=== PATIENT | female | born 1955 | race Caucasian/White ===

== ENCOUNTER 2022-11-07 10:00 | Outpatient (RCR) | payer MEDICARE, SELFPAY ==
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
== END 2022-11-07 19:00 | disposition home or self-care (01) ==
LOC: PT 10:00
PROVIDERS: PCP Internal Medicine; Referring Provider Internal Medicine; Visit Provider Internal Medicine
DX: M25.562 Pain in left knee (principal); M25.512 Pain in left shoulder
CPT/HCPCS: 97110; 97161

== ENCOUNTER → 2022-11-07 | Outpatient (CLI) | payer MEDICARE, SELFPAY ==
--- NOTE | 2022-11-07 07:31 | CT_ITS ---
STUDY: CT ABDOMEN WITH AND WITHOUT CONTRAST REASON FOR EXAM: Female, 67 years old. Had previous CT in [place], [place] that was indeterminate adrenal nodule. RADIATION DOSAGE (If Supplied By Facility): CTDIvol = ( 22.42 ) mGy, DLP = ( 1630.07 ) mGycm TECHNIQUE: Transaxial images were obtained pre and post I.V. administration of IV 100mL Isovue-370, and oral contrast. Sagittal and coronal images were reconstructed. Individualized dose optimization techniques were used for this CT. COMPARISON: None. FINDINGS: The visualized lung bases are unremarkable. The visualized portions of the heart are within normal limits. There is hepatomegaly with diffuse hepatic enlargement. Normal gallbladder and extrahepatic biliary system. Normal spleen. Normal pancreas. There is a 8.9 mm hypodense nodule in the lateral limb of the right adrenal gland suggestive of a small adenoma. There is also evidence of a 5.6 mm hypodense nodule in the crux of the left adrenal gland suggestive of adrenal adenoma. Normal right kidney. Normal left kidney. Normal visualized stomach. Normal small intestine. Normal colon. The appendix is visualized and appears normal. Normal abdominal aorta. Normal inferior vena cava. Normal retroperitoneum. Normal abdominal wall. Minimal anterior listhesis of L4 on L5. Marked degree of disc space narrowing and disc degeneration at the L5-S1 level. CT/Abdomen W/WO IV Contrast IMPRESSION: Findings in keeping with subcentimeter bilateral adrenal adenomas. Fatty infiltration of the liver. Electronically Signed: Isidro Morales MD at 14:56 EDT ,
[2022-11-07 08:01] LABS: CREATININE FINGERSTICK < 0.9 mg/dL (0.55-1.02); EGFR FINGERSTICK > 60.0000 mL/min (>60)
== END | disposition home or self-care (01) ==
LOC: CT 07:25
PROVIDERS: PCP Internal Medicine; Referring Provider Internal Medicine; Visit Provider Internal Medicine
DX: E27.8 Other specified disorders of adrenal gland (principal)
CPT/HCPCS: 74170; Q9967

== ENCOUNTER → 2022-12-16 | Outpatient (CLI) | payer MEDICARE, SELFPAY ==
--- NOTE | 2022-12-16 08:37 | BI_ITS ---
MAMMOGRAPHY - BILATERAL SCREENING REASON FOR EXAM: Female, 67 years old. Routine annual screening examination. PERTINENT HISTORY: Aunt with breast cancer. TECHNIQUE: Digital bilateral breast irma (3D mammographic acquisition) in the CC and MLO projections. 2-D mediolateral oblique (MLO) and craniocaudad (CC) views of both breasts were obtained. CAD: Full Field Digital Mammography with Computer Added Detection was performed. COMPARISON: No comparison mammograms available at this time. If any prior films become available, an addendum to this report can be generated. FINDINGS: Breast Composition: There are scattered areas of fibroglandular density. There are no dominant masses or suspicious calcifications. Partially calcified nodule in the anterior upper lateral aspect of the No other significant abnormalities are identified. BI/SCRN MAMM (CAD)W/IRMA BILAT IMPRESSION: Negative screening mammogram. Yearly followup mammogram recommended. (A) ASSESSMENT CATEGORY: BIRADS Category 2: Benign. A letter regarding these results will be sent to the patient by the facility within 30 days. Approximately 10% of breast cancers are not detected by mammography. A normal mammogram should not delay biopsy of a clinically suspicious abnormality. [id number] Electronically Signed: Isidro Morales MD at 14:59 EDT ,
--- NOTE | 2022-12-16 08:42 | BD_ITS ---
STUDY: DUAL ENERGY X-RAY ABSORPTIOMETRY / DXA REASON FOR EXAM: Female, 67 years old. [id number] TECHNIQUE: Bone Mineral Density (BMD) measurements of lumbar spine and bilateral hips were obtained. COMPARISON: None. FINDINGS: Lumbar Spine (L1-L4): g/cm2 (0.849) / T-score (-1.2) / Z-score (0.5) Findings are suggestive of osteopenia with a low fracture risk. Left Femur Total: g/cm2 (0.814) / T-score (-1.1) / Z-score (0.2) Left Femoral Neck: g/cm2 (0.68) / T-score (-1.5) / Z-score (0.0) Right Femur Total: g/cm2 (0.860) / T-score (-0.7) / Z-score (0.6) Right Femoral Neck: g/cm2 (0.767) / T-score (-0.7) / Z-score (0.8) BD/Dexa Bone Density Study IMPRESSION: The patient is considered osteopenic as outlined below according to World Sark[employer] Organization (WHO) criteria with a low fracture risk. Reference Information: The T-score is the number of standard deviations above or below the standard which is normal for young adults at their peak bone mineral density. The World Health Organization (WHO) interprets the T-scores as follows: Above -1 Normal bone density Between -1 and -2.5 Osteopenia Equal to / or below -2.5 Osteoporosis As a practical clinical guideline, osteopenia may be graded as follows: Mild -1 through -1.5 Moderate -1.6 through -2.0 Severe -2.1 through -2.4 The Z-score is the number of standard deviations above or below age-matched controls. A Z-score of less than -1.5 would be considered abnormal. References: 1. NIH Osteoporosis and Related Bone Diseases www osteo.org 2. International Society for Clinical Densitometry www iscd.org 3. National Osteoporosis Foundation www nof.org Electronically Signed: Isidro Morales MD at 10:20 EDT ,
== END | disposition home or self-care (01) ==
LOC: OPBD 08:35
PROVIDERS: PCP Internal Medicine; Referring Provider Internal Medicine; Visit Provider Internal Medicine
DX: Z78.0 Asymptomatic menopausal state (principal); Z12.31 Encounter for screening mammogram for malignant neoplasm of breast
CPT/HCPCS: 77063; 77067; 77080

== ENCOUNTER → 2023-11-11 | Outpatient (CLI) | payer MEDICARE, SELFPAY ==
--- NOTE | 2023-11-11 08:33 | US_ITS ---
STUDY: ABDOMINAL ULTRASOUND - RIGHT UPPER QUADRANT REASON FOR VISIT: Female, 68 years old fatty liver TECHNIQUE: Ultrasound evaluation of the right upper quadrant was performed with real-time and static guo-scale imaging. TECHNICAL QUALITY: Adequate. COMPARISON: Comparison is made with prior CT scan the abdomen dated November 07, 2022. FINDINGS: Liver: The liver measures 12.8 cm. There is increased echogenicity consistent with fatty infiltration. The bile ducts are within normal limits. There is hepatic color flow. The direction of portal flow is hepatopetal. There is no demonstrated mass lesion. Gallbladder: Normal distended gallbladder. The gallbladder wall measures 1.9 mm. There is a negative sonographic Tucker''s sign. There is no pericholecystic fluid. There are no gallstones. Several small gallbladder polyps are seen the largest measures 4 mm x 2 mm x 3 mm. Common Bile Duct (C.B.D.): The common bile duct measures 4.6 mm. Pancreas: Normal size of the head, body and tail of the pancreas. There is increased echogenicity of the pancreas. There is no demonstrated pancreatic mass or cyst. Right Kidney: Normal size of the right kidney. The right kidney measures 10.2 cm x 5.1 cm x 4.7 cm. Normal renal cortex. The right cortex measures 1.1 cm. There is no demonstrated renal mass or cyst. There is no right hydronephrosis. US/Abdomen Limited IMPRESSION: Fatty infiltration of the liver. Small gallbladder polyps. Electronically Signed: Isidro Morales MD at 10:21 EDT ,
== END | disposition home or self-care (01) ==
PROVIDERS: PCP Internal Medicine; Referring Provider Internal Medicine; Visit Provider Internal Medicine
DX: K76.0 Fatty (change of) liver, not elsewhere classified (principal)
CPT/HCPCS: 76705

== ENCOUNTER → 2024-02-10 | Outpatient (CLI) | payer MEDICARE, SELFPAY ==
--- NOTE | 2024-02-10 08:39 | BI_ITS ---
MAMMOGRAPHY - BILATERAL SCREENING REASON FOR EXAM: Female, 68 years old. Routine annual screening examination. PERTINENT HISTORY: Aunt with breast cancer. TECHNIQUE: Digital bilateral breast irma (3D mammographic acquisition) in the CC and MLO projections. 2-D mediolateral oblique (MLO) and craniocaudad (CC) views of both breasts were obtained. CAD: Full Field Digital Mammography with Computer Added Detection was performed. COMPARISON: Comparison is made with prior study dated December 16, 2022. FINDINGS: Breast Composition: There are scattered areas of fibroglandular density. There are no dominant masses or suspicious calcifications. Stable 4.7 mm calcified nodule in the anterior upper lateral portion of the left breast. No other significant abnormalities are identified. There has been no significant change since the prior study. BI/SCRN MAMM (CAD)W/IRMA BILAT IMPRESSION: Stable bilateral screening mammogram. Yearly follow-up mammogram recommended. (A) ASSESSMENT CATEGORY: BIRADS Category 2: Benign. A letter regarding these results will be sent to the patient by the facility within 30 days. Approximately 10% of breast cancers are not detected by mammography. A normal mammogram should not delay biopsy of a clinically suspicious abnormality. [id number] Electronically Signed: Isidro Morales MD at 9:44 EDT ,
== END | disposition home or self-care (01) ==
LOC: OPBI 08:39
PROVIDERS: PCP Internal Medicine; Referring Provider Internal Medicine; Visit Provider Internal Medicine
DX: Z12.31 Encounter for screening mammogram for malignant neoplasm of breast (principal)
CPT/HCPCS: 77063; 77067

== ENCOUNTER → 2024-03-11 | Outpatient (CLI) | payer MEDICARE, SELFPAY ==
--- NOTE | 2024-03-11 09:30 | NM_ITS ---
CLINICAL: 68 year old female with right upper quadrant pain. RADIONUCLIDE HEPATOBILIARY SCINTIGRAPHY COMPARISON: None available FINDINGS: Following the intravenous administration of 5.3 mCi of 99m Tc Mebrofenin, hepatobiliary images reveal: 1. Relatively prompt and homogeneous radiopharmaceutical concentration is noted by a normal sized liver. No parenchymal defects are identified. 2. Gallbladder activity is identified at 30 minutes post radiopharmaceutical administration. 3. Small intestinal tract is observed at 15 minutes following tracer injection. 4. Washout of the radiopharmaceutical by the hepatic parenchyma appears qualitatively normal. Cholecystokinin (0.02 ug/kg) was administered intravenously over a 30-minute period. The post CCK gallbladder ejection fraction calculated at 20 minutes following Cholecystokinin administration was noted to be 37.0 % (normal greater than 35%). During 30 minutes of post CCK imaging, there is no scintigraphic evidence of reflux of the radiotracer into the common hepatic duct or refilling of the gallbladder. NM/Hepatobilliary Img w/Pharm Int IMPRESSION: 1. NORMAL 99m Tc Mebrofenin hepatobiliary imaging examination with Cholecystokinin. A. A gallbladder ejection fraction calculated to be greater than 35% following the administration of Cholecystokinin makes the probability of functional hepatobiliary disease (gallbladder and/or sphincter of Oddi dyskinesia) and/or organic hepatobiliary disease (chronic acalculous cholecystitis and/or cystic duct syndrome) to be low. (Сергей Sanots et al, Journal of Nuclear Medicine 32:1695, 1991). Electronically Signed: Franco Reddy DO at 7:40 EDT ,
== END | disposition home or self-care (01) ==
PROVIDERS: PCP Internal Medicine; Referring Provider Internal Medicine; Visit Provider Internal Medicine
DX: R10.11 Right upper quadrant pain (principal)
CPT/HCPCS: 78227; A9537; J2805

== ENCOUNTER → 2024-09-07 | Outpatient (CLI) | payer MEDICARE, SELFPAY ==
[2024-09-07 16:50] LABS: Free T3 2.6 pg/mL (2.18-3.98); Troponin T High Sensitivity 7 ng/L (<=14)
== END | disposition home or self-care (01) ==
LOC: LAB 15:43
PROVIDERS: PCP Internal Medicine; Referring Provider Internal Medicine; Visit Provider Internal Medicine
DX: I49.9 Cardiac arrhythmia, unspecified (principal); R94.31 Abnormal electrocardiogram [ECG] [EKG]
CPT/HCPCS: 36415; 84439; 84443; 84481; 84484

== ENCOUNTER → 2024-09-22 | Outpatient (CLI) | payer MEDICARE, SELFPAY ==
--- NOTE | 2024-09-22 13:25 | STRESSREP_ITS ---
Stress Test Report Date: 09/22/2024 Procedure: Exercise tolerance test/imaging study Indications: Abnormal EKG, palpitations Consent: Per the patient Procedure: The patient exercised on a Osvaldo protocol for 7 minutes and 1 second achieving a peak heart rate of 162 bpm (105% predicted maximal heart rate) with a peak blood pressure 180/82 mmHg and a peak MET capacity of 10.1 METs. The baseline ECG demonstrated normal sinus rhythm. The peak exercise ECG demonstrated sinus tachycardia with 1 to [address] depression in lead III and horizontal to upsloping ST depression in aVF. There is also upsloping ST depression in lead II and the lateral leads. EKG during recovery revealed initially patient's ST changes with trending back to baseline. About 3 minutes into the recovery phase patient started having horizontal to downsloping ST depressions (about 1 mm) in the inferior leads. [There were no cardiac dysrhythmias pretest, during exercise, or recovery]. The functional capacity was considered excellent for age. Patient had chest pain with exercise that eventually resolved with sublingual nitroglycerin. The examination was discontinued secondary to achieving target heart rate. Impression: 1. Technically adequate (percent predicted maximal heart rate greater than 85%) exercise tolerance test 2. Stress test is positive for exercise-induced EKG changes of ischemia 3. The test test is positive for exercise-induced chest pain 4. Functional capacity is excellent for age 5. Nuclear images pending Myocardial perfusion imaging study: Technique: The patient was injected with 11.6 mCi of technetium 99m Cardiolite and subsequently rest SPECT Cardiolite nuclear imaging was obtained in the horizontal long, vertical long, and short axis views. The patient exercised on a Osvaldo protocol. Please see above for details. The patient was injected with 34.1 mCi of technetium 99m Cardiolite and subsequently stress SPECT Cardiolite nuclear imaging was obtained in the horizontal long, vertical long, and short axis views. A gated Cardiolite study at peak stress was obtained. Interpretation: Rest and stress SPECT Cardiolite nuclear imaging status post realignment, normalization, and attenuation correction, demonstrates overall normal myocardial radioisotope uptake. There is no evidence of significant ischemia or infarction. The gated Cardiolite study demonstrates no significant regional wall motion abnormalities. The reported LVEF is greater than 70%. Impression: 1. There is no evidence of significant ischemia or infarction. Please see above for the EKG portion of the test. 2. The gated Cardiolite study reports an LVEF of greater than 70%. This note was generated with Idhasoftation software. It may contain incorrect words, spelling, and punctuation that were not noted in checking the note before signing.
== END | disposition home or self-care (01) ==
PROVIDERS: PCP Internal Medicine; Referring Provider Internal Medicine; Visit Provider Internal Medicine
DX: R94.31 Abnormal electrocardiogram [ECG] [EKG] (principal)
CPT/HCPCS: 78452; 93017; A9500; A4216

== ENCOUNTER → 2024-10-21 | Outpatient (CLI) | payer MEDICARE, SELFPAY | END | disposition home or self-care (01) | LOC: PSN 08:06 | PROVIDERS: PCP Internal Medicine; Referring Provider Internal Medicine; Visit Provider Internal Medicine | DX: I49.9 Cardiac arrhythmia, unspecified (principal) | CPT/HCPCS: 93225; 93226 ==

== ENCOUNTER → 2025-01-04 | Outpatient (CLI) | payer MEDICARE, SELFPAY ==
--- NOTE | 2025-01-04 08:24 | US_ITS ---
PROCEDURE: ABD LIMITED W/ ELASTOGRAPHY REASON FOR EXAM: FATTY LIVER COMPARISON: None. TECHNIQUE: Right upper quadrant abdominal ultrasound. Margarita ElastQ Imaging shear wave elastography for non-invasive assessment of liver tissue stiffness. Margarita EPIQ Elite. FINDINGS: LIVER: Size: Unremarkable Length: 13.6 cm Echotexture: Diffusely echogenic suggesting fatty infiltration Contour: Normal Lesions: None identified Elastography: EQI Med: 15.2 kPa EQI Med [place]: 2.24 m/s IQR/Med: 13 %* GALLBLADDER: Small polyp measuring 4 mm x 5 mm x 2 mm is seen. The gallbladder wall is not thickened. COMMON BILE DUCT: Normal measuring 3.1. PANCREAS: Normal Visualized portions of the right kidney are unremarkable. No right upper quadrant ascites. US/ABD Limited w/ Elastography IMPRESSION: SEVERE HEPATIC FIBROSIS / CIRRHOSIS Fatty infiltration of the liver. Reference Values: SRU <1.37 m/s (5.7kPa): No to mild fibrosis 1.37 m/s - 2.2 m/s: Moderate to severe fibrosis >2.2 m/s (15kPa): Significant fibrosis / cirrhosis METAVIR Score F2 or higher: 1.34 m/s (5.7kPa) F3 or higher: 1.55 m/s (7.3kPa) F4: 1.80 m/s (10kPa) * If the IQR/Med is >30%, the variance in the measurements is a large and the a ccuracy of the measurement may be in question. Reading Location: [facility]
== END | disposition home or self-care (01) ==
PROVIDERS: PCP Internal Medicine; Referring Provider Internal Medicine; Visit Provider Internal Medicine
DX: K76.0 Fatty (change of) liver, not elsewhere classified (principal)
CPT/HCPCS: 76705; 76981

== ENCOUNTER → 2025-02-16 | Outpatient (CLI) | payer MEDICARE, SELFPAY ==
--- NOTE | 2025-02-16 13:40 | BI_ITS ---
EXAM: SCRN MAMM (CAD)W/IRMA BILAT DATE: 02/16/2025 CLINICAL HISTORY: F, Age 69 y/o , SCREENING/POST MENOPAUSAL TECHNIQUE: SCRN MAMM (CAD)W/IRMA BILAT COMPARISON: Prior exam(s) were compared FINDINGS: TISSUE DENSITY: The breasts are heterogeneously dense, which may obscure small masses. Bilateral Breast Mammographic Findings: No suspicious masses, calcifications or other abnormalities are identified. BI/SCRN MAMM (CAD)W/IRMA BILAT IMPRESSION: No mammographic evidence of malignancy in either breast OVERALL FINAL ASSESSMENT BI-RADS 1: NEGATIVE. RECOMMENDATION: Routine annual follow-up in 1 Year A letter with findings and recommendations will be mailed to the patient. Reading Location: [id number]
--- NOTE | 2025-02-16 13:40 | BD_ITS ---
PROCEDURE: DEXA BONE DENSITY STUDY 02/16/2025 REASON FOR EXAM: F, age 69 y/o . Postmenopausal. TECHNIQUE: DEXA BONE DENSITY STUDY COMPARISON: Prior study dated December 16, 2022. FINDINGS: BMD and T-SCORES Lumbar spine: 0.972 g/cm2, T-score -0.4 Levels: L1 through L4 Left femoral neck: 0.662 g/cm2, T-score -1.7 Femoral neck comparison data not recommended for monitoring change. Left total hip: 0.789 g/cm2, T-score -1.3 Change from prior: Loss of 3%. Right femoral neck: 0.745 g/cm2, T-score -0.9 Femoral neck comparison data not recommended for monitoring change. Right total hip: 0.833 g/cm2, T-score -0.9 Change from prior: Loss of 3.1%. The World Health Organization has defined the following categories based on bone density: Normal bone density: T-score equal to or greater than -1.0 Osteopenia: T-score between -1.0 and -2.5 Osteoporosis: T-score equal to or less than -2.5 The patient does meet the pharmacological treatment recommendations for prevention of osteoporosis. BD/Dexa Bone Density Study IMPRESSION: OSTEOPENIA. Recommend follow-up as clinically warranted. Reading Location: [id number]
--- OUTSIDE RECORDS SUMMARY | 2025-02-16 17:14 | XMS RPT_ITS | CCD ---
Author Organization [facility] Care Team Providers Care Membership Administrator Name Role Phone Fast DO, Cynthia A Unavailable Friend, Dr. Orosco Unavailable Unavailable [facility]available [facility] Bayron CABRERA, Mindi Unavailable Unavailable Isaac MENDOZA, Dr. Sushant Biswas Unavailable FAST, CYNTHIA A Attending Unavailable FAST, CYNTHIA A Primary Care Unavailable Fast DO, Cynthia A Unavailable Fast DO, Cynthia A Attending Unavailable Fast DO, Cynthia A Referring Unavailable Fast DO, Cynthia A Consulting Unavailable Brian Ortiz MD Unavailable Dr. Andrea Dowell Attending Provider Brenden, Dr. Alejo Primary Care Provider [phone] Susu Christina MA Unavailable Unavailable FAST, CYNTHIA Referring Unavailable FAST, CYNTHIA Primary Care Unavailable BRIAN ORTIZ Attending Unavailable Fast DO, Cynthia A Primary Care Provider [phone] Unavailable Primary Care Provider Unavailabl e Fast, Dr. Alejo Primary Care Provider [phone] Dr. Andrea Dowell Attending Provider Fast DO, Cynthia A Primary Care Provider [phone] Fast DO, Cynthia A Attending Provider SELF Referring Unavailable SUZIE OLIVIER Attending Unavailable SELF Referring Unavailable Fast DO, Dr. Alejo Primary Care Provider Fast , Dr. Alejo Attending Provider [phone] Fast DO, Dr. Alejo Referring Provider GUDulce, VIKY Attending Unavailable FAST, CYNTHIA A Referring Unavailable FAST, CYNTHIA A Primary Care Unavailable GEM GALVAN Admitting Unavailable GEM GALVAN Attending Unavailable RINA THOMAS Referring Unavailable FAST, CYNTHIA A Primary Care Unavailable CONSULT, CARDIOLOGY Consulting Unavailable Fast DO, Dr. Alejo Other Provider [phone] Aguilar MENDOZA, Dr. Daugherty Attending Provider GUL, VIKY Attending Unavailable GUL, VIKY Referring Unavailable FAST, CYNTHIA A Primary Care Unavailable FAST, CYNTHIA A Primary Care Unavailable ANDRE RAMON Attending Unavailable FAST, CYNTHIA A Primary Care Unavailable RINA THOMAS Attending Unavailable GREG ROMERO Attending Unavailable MOUSSA, TAREK Referring Unavailable FAST, CYNTHIA A Primary Care Unavailable NATALIA ZEINAB ARRIOLA~[phone] NATALIA Attending Unavailable Fast DO, Dr. Alejo Primary Care Provider Fast DO, Dr. Alejo Attending Provider Fast DO, Dr. Alejo Referring Provider Bull MENDOZA, Dr. Barajas Attending Provider [phone] Fast DO, Cynthia Looney Attending Provider [phone] Julia Akers NP Attending Provider Physician MD, Out [facility] Primary Care Provider Unavailable Fast, Cynthia Referring Unavailable Fast, Cynthia Attending Unavailable Fast, Cynthia Primary Care Unavailable Jenn Gottlieb Attending Unavailable Fast, Cynthia Primary Care Unavailable Fast, Cynthia Referring Unavailable Fast, Cynthia Referring Unavailable Fast, Cynthia Consulting Unavailable Fast, Cynthia Primary Care Unavailable Dat Sheikh Attending Unavailabl e Fast, Cynthia Referring Unavailable Fast, Cynthia Attending Unavailable Fast, Cynthia Primary Care Unavailable Fast, Cynthia Referring Unavailable Fast, Cynthia Primary Care Unavailable Fast, Cynthia Attending Unavailable Fast, Cynthia Referring Unavailable Fast, Cynthia Attending Unavailable Fast, Cynthia Primary Care Unavailable Fast, Cynthia Referring Unavailable Fast, Cynthia Attending Unavailable Fast, Cynthia Primary Care Unavailable Fast, Cynthia Referring Unavailable Fast, Cynthia Primary Care Unavailable Fast, Cynthia Attending Unavailable Fast, Cynthia Attending Unavailable Fast, Cynthia Primary Care Unavailable Fast, Cynthia Referring Unavailable Julia Akers Attending Unavailable Julia Akers Attending Unavailable Julia Akers Attending Unavailable Cynthia Sun Attending Unavailable Peter Rogers Attending Unavailable Julia Akers Attending Unavailable Allergies Allergy Classification Reported Allergen(s) Allergy Type Date of Onset Reaction(s) Facility (20 sources) MSG Allergy to substance (finding) [facility]; [facility] Work Phone: Comment on above: swollen face (6 sources) Not Able To Determine Propensity to adverse reactions 03-31-20 24 Nausea and Vomiting, Itchy Eyes, Abdominal Discomfort, Headache, Hypertension, Dyspepsia [facility] (1 source) Sulfites; Translations: [SULFITES] Propensity to adverse reactions to drug (disorder) [facility] (1 source) Sulfites Allergy to substance 10-27-19 high blood pressure [facility] Comment on above: high blood pressure (1 source) Sulfites Drug allergy (disorder) 10-27-19 [facility] Repository Medications Current Medications Medication Drug Class(es) Dates Sig (Normalized) Sig (Original) calcium carbonate 1250 mg oral tablet (20 sources) Start: 10-26-2024 take 1 tablet by mouth once daily Start: 09-24-2024 End: 09-26-2024 take 500 mg by mouth once daily 500 mg, Oral, DAILY, First dose on 09/24/24 at 0900, Until Discontinued cholecalciferol 0.125 mg ora l capsule (20 sources) Vitamin D Start: 10-26-2024 take 1 capsule by mo [facility] once daily Start: 10-15-2022 take 1 tablet by [facility] daily cholecalciferol (vitamin D3) 125 mcg (5,000 unit) oral tablet 1 (one) tablet qd for 0 days Quantity: 30 {Tablet} Refills: 0 Ordered: 03-Nov-2022 Mindi Verma CMA Start : 15-Oct-2022 Active take 1 capsule by mo ut once daily Vitamin D3 125 MCG (5000 UT) capsule Take 1 capsule by mouth daily. Active loratadine 10 mg oral capsul e (8 sources) Start: 10-26-2024 take 1 capsule by mo [facility] once daily take 1 tablet by mouth once spencer y Loratadine 10 MG tablet Take 1 tablet by mouth daily. Active losartan potassium 50 mg oral tablet (20 sources) Angiotensin 2 Receptor Zo Start: 10-26-2024 take 1 mg by mouth once daily Start: 09-02-2024 End: 10-18-2024 take 1 tablet by mouth once daily Losartan 50 MG tablet Take 1 tablet by mouth daily. 09/02/2024 10/18/2024 Discontinued (Therapy completed) Start: 04-07-2022 End: 09-26-2024 take 1 tablet by mouth once daily losartan 25 mg oral tablet 1 (one) Tablet qd for 0 days Quantity: 30 {Tablet} Refills: 3 Ordered: 07-Apr-2022 Mindi Verma CMA Start : 07-Apr-2022 Active Magnesium (7 sources) Start: 10-26-2024 take 2 tablets by mouth once d aily take 1 capsule by mouth once jamie ly Magnesium 400 MG capsule Take 400 mg by mouth daily. Suspended take 1 capsule by mouth once jamie ly Magnesium 400 MG capsule Take 400 mg by mouth daily. Active 24 hr metoprolol succinate 25 mg extended release oral tablet (5 sources) beta-Adrenergic Zo Start: 10-26-2024 take 1 tablet by mouth once daily Start: 09-27-2024 End: 10-18-2024 take 0.5 tablet by mouth once daily Metoprolol succinate 25 MG tablet XL Take 0.5 tablets by mouth daily. 45 tablet 3 10/18/2024 Active Start: 09-24-2024 End: 09-26-2024 12.5 mg, Oral, DAILY, First dose on 09/24/24 at 1200, Until Discontinued, Slow release product. Do not crush. Extended release can be cut in half. polyethylene glycol 3350 170 00 mg powder for oral solution (1 source) Osmotic Laxative Start: 10-26-2024 Completed/Discontinued Medications Medication Drug Class(es) Dates Sig (Normalized) Sig (Original) acetaminophen 325 mg oral tablet (3 sources) Start: 09-23-2024 End: 09-26-2024 take 1 tablet by mouth every six hours as needed 650 mg, Oral, EVERY 6 HOURS NEEDED, Starting on Thu09/23/24 at 1637, Until 09/26/24 at 2249, Mild Pain, Oral temp > 100.4 F, If Motrin is also ordered, alternate for mild pain. take 1 tablet by rafi th every six hours as needed Acetaminophen 325 MG tablet Take 1 table t by mouth every 6 hours as needed for Mild Pain. Active aspirin 81 mg chewable tablet (4 sources) Platelet Aggregation Inhibitor, Nonsteroidal Anti-inflammatory Drug Start: 09-27-2024 End: 10-18-2024 aspirin 81 MG Chew Tab chewable tablet Chew 1 tablet daily. 30 tablet 09/27/2024 10/18/2024 Discontinued (Therapy completed) Start: 09-24-2024 End: 09-26-2024 take 81 mg by mouth once daily 81 mg, Oral, DAILY, Fir st dose on Thu09/24/24 at 1230, Until Discontinued Start: 09-23-2024 End: 09-23-2024 take 1 dose by mouth once 325 mg, Oral, ONCE, 1 dose, On Thu09/23/24 at 0845 0.4 ml enoxaparin sodium 100 mg/ml prefilled syringe (1 source) Low Molecular Weight Heparin Start: 09-25-2024 End: 09-26-2024 inject 40 mg by subcutaneous injection every twenty-four hours 40 mg, Subcutaneous, EVERY 24 HOURS, First dose on 09/25/24 at 1215, Until Discontinued, DO NOT ADMINISTER ON DAY OF SURGERY/INVASIVE PROCEDURE UNLESS OTHERWISE DIRECTED., Indications: DVT/PE prophylaxis, On hold since [place] 09/25/2024 at 1143 until manually unheld [id number] 0.3 ml EPINEPHrine 1 mg/ml auto-injector (18 sources) alpha-Adrenergic Agonist, beta-Adrenergic Agonist, Catecholamine Start: 11-03-2022 End: 09-26-2024 EPINEPHrine 0.3 MG/0.3ML Solution Auto-injector injection INJECT CONTENTS OF 1 PEN NEEDED FOR ALLERGIC REACTION 11/03/2022 09/26/2024 Discontinued (Stop Taking at Discharge) Start: 11-03-2022 EpiPen 2-Berto 0 .3 mg/0.3 mL injection, auto-injector 1 (one) syringe at onset of symptoms for 0 days Quantity: 1 {Each} Refills: 1 Ordered: 03-Nov-2022 Susu Christina MA Start : 03-Nov-2022 Active ergocalciferol 1.25 mg oral capsule (6 sources) Provitamin D2 Compound End: 09-26-2024 Ergocalciferol 1.25 MG (68115 UT) capsule Take by mouth. 09/26/2024 Discontinued (Stop Taking at Discharge) erythromycin 0.005 mg/mg ophthalmic ointment (8 sources) Macrolide, Macrolide Antimicrobial Start: 08-25-2022 End: 09-26-2024 Erythromycin 5 MG/GM Ointment ophthalmic ointment Apply a 1 cm ribbon of ointment to the lower eyelid on the left twice daily for 7 days 3.5 g 08/25/2022 09/26/2024 Discontinued (Stop Taking at Discharge) famotidine 20 mg oral tablet (4 sources) Histamine-2 Receptor Antagonist End: 09-06-2024 take 0.5 tablet by mouth twice daily faMOTIdine 20 MG tablet Take 0.5 tablets by mouth 2 times daily. 09/06/2024 Discontinued (Therapy completed) 1 ml heparin sodium, porcine 5000 unt/ml prefilled syringe (1 source) Unfractionated Heparin, Anti-coagulant Start: 09-23-2024 End: 09-23-2024 3,500 Units (rounded from 3,594 Units = 60 Units/kg 59.9 kg Dosing weight), Intravenous, ONCE, 1 dose, On Thu09/23/24 at 0930, Max bolus = 4,000 units Heparin (Porcine) in NaCl 61671-5.45 UT/250ML-% premix infusion (1 source) Start: 09-23-2024 End: 09-23-2024 Heparin (Porcine) in NaCl 33281-0.45 UT/250ML-% premix infusion 1 ml hydrALAZINE hydrochloride 20 mg/ml injection (1 source) Arteriolar Vasodilator Start: 09-23-2024 End: 09-26-2024 take 10 mg intravenously every six hours as needed 10 mg, Intravenous, EVERY 6 HOURS NEEDED, Starting on Thu09/23/24 at 1646, Until Thu09/26/24 at 2249, SBP > 160 mmHg Iopamidol (1 source) Radiographic Contrast Agent Start: 04-26-2024 End: 04-26-2024 75 mL, Intravenous, ONCE, 1 dose, On Tu04/26/24 at 1015, Extravasation Risk, CT Procedure lidocaine 0.04 mg/mg medicated patch (1 source) Antiarrhythmic, Amide Local Anesthetic Start: 09-25-2024 End: 09-26-2024 apply 1 dose transdermal route every twenty-four hours 1 patch, Transdermal, Administer over 12 Hours, EVERY 24 HOURS, First dose on 09/25/24 at 2115, Until Discontinued, Apply to shoulder . meclizine hydrochloride 12.5 mg oral tablet (4 sources) Antiemetic Start: 08-26-2023 End: 09-06-2024 take 1-2 tablets by mouth three times daily as needed Meclizine 12.5 MG tablet TAKE 1 TO 2 TABLETS BY MOUTH THREE TIMES DAILY NEEDED 08/26/2023 09/06/2024 Discontinued (Therapy completed) melatonin 3 mg oral tablet (1 source) Start: 09-23-2024 End: 09-26-2024 take 3 mg by mouth once daily at bedtime as needed for sleep 3 mg, Oral, DAILY AT BEDTIME NEEDED, Starting on Thu09/23/24 at 1637, Until 09/26/24 at 2249, Sleep 1 ml naloxone hydrochloride 0.4 mg/ml injection (1 source) Opioid Antagonist Start: 09-23-2024 End: 09-26-2024 0.4 mg, Intravenous, EVERY 15 MINUTES NEEDED, 2 doses, Starting on Thu09/23/24 at 1637, Until Thu09/26/24 at 2249, Respiratory Depression, Opioid Reversal nitroglycerin 0.02 mg/mg topical ointment (1 source) Nitrate Vasodilator Start: 09-23-2024 End: 09-23-2024 1 inch, Topical, ONCE, 1 dose, On Thu09/23/24 at 0930, Recommended maximum frequency of administration is 2 doses/day. Include a nitrate-free interval of ~10 to 12 hours each day to minimize the risk of tolerance. omeprazole 20 mg oral tablet (3 sources) Proton Pump Inhibitor End: 09-06-2024 take 20 mg by mouth once daily OMEPRAZOLE PO Take 20 mg by mouth daily. Over the counter 09/06/2024 Discontinued (Therapy completed) Ondansetron 4mg/2ml (ZOFRAN) injection 4 mg (1 source) Start: 09-23-2024 End: 09-26-2024 take 4 mg intravenously every six hours as needed Ondansetron 4mg/2ml (ZOFRAN) injection 4 mg 20 ml sodium chloride 9 mg/ml injection (3 sources) Start: 09-23-2024 End: 09-26-2024 take 5 mL intravenously once 5 mL, Intravenous, ADMINISTER DIRECTED, Starting on Thu09/23/24 at 1637, Until Thu09/26/24 at 2249, Flush, per IV Care Guidelines Start: 04-26-2024 End: 04-27-2024 50 mL, Intravenous, NEEDE D, Starting on Thu04/26/24 at 0955, Until Thu04/27/24 at 0233, Per Protocol, CT Procedure Start: 04-26-2024 End: 04-27-2024 10 mL, Intravenous, NEEDE D, Starting on Thu04/26/24 at 0955, Until Thu04/27/24 at 0233, Flush, CT Procedure tetracaine hydrochloride 5 mg/ml ophthalmic solution (1 source) Kate Local Anesthetic Start: 08-25-2022 End: 08-25-2022 Tetracaine (PONTOCAINE) 0.5 % ophthalmic solution 1 drop Problems Active Problems Problem Classification Problem Date Documented Date Episodic/Chronic Allergic reactions (20 sources) Allergic reaction; Translations: [Allergic reaction] 11-03-2022 Episodic Comment on above: going to be seeing d r white Cardiac dysrhythmias (1 source) Cardiac arrhythmia, unspecified; Translations: [Cardiac arrhythmia, unspecified] Onset: 10-31-2024 Chronic Cardiac dysrhythmias (5 sources) Palpitations; Translations: [Palpitations] Onset: 09-06-2024 09-06-2024 Episodic Conditions associated with dizziness or vertigo (1 source) Dizziness; Translations: [Dizziness and giddiness] 09-03-2023 Episodic Coronary atherosclerosis and other heart disease (3 sources) Preinfarction syndrome; Translations: [Unstable angina] Onset: 09-23-2024 09-23-2024 Chronic Disorders of lipid metabolism (20 sources) Hyperlipidemia; Translations: [Hyperlipidemia] 10-15-2022 Chronic Comment on above: her cardiaccalcium s core is zero and she not really want to take statin unless absolutely has to we discussed in great detail diet and ex Esophageal disorders (6 sources) Gastroesophageal reflux disease without esophagitis; Translations: [Gastro-esophageal reflux disease without esophagitis] Onset: 03-31-2024 03-31-2024 Chronic Essential hypertension (20 sources) Hypertensive disorder; Translations: [HTN (hypertension)] Onset: 10-24-2022 04-07-2022 Chronic Comment on above: was on Lisinopril at a time. Keeps track of BP at home, does run higher in doc office. monitoring at home d iscussed salt restriction caffeine restriction diet and ex she takes bps all th e time has white coat htn but also very respsonsive to her diet exercise and stress - she has great bps now her bp good unless a llergic reaction chronic stable-andira nue present regimen Headache; including migraine (1 source) Migraine variants; Translations: [Other migraine, not intractable, without status migrainosus] 09-03-2023 Chronic Immunizations and screening for infectious disease (20 sources) Needs influenza immunization; Translations: [Need for prophylactic vaccination and inoculation against influenza (Renamed from Need for influenza vaccination)] 04-07-2022 Episodic Nonspecific chest pain (10 sources) Precordial pain; Translations: [Precordial pain] Onset: 09-23-2024 09-23-2024 Episodic Other aftercare (2 sources) Post-discharge follow-up; Translations: [Encounter for follow-up examination after completed treatment for conditions other than malignant neoplasm] Onset: 10-18-2024 10-18-2024 Episodic Other and unspecified benign neoplasm (2 sources) Polyp of colon; Translations: [Polyp of colon] 10-26-2024 Episodic Other connective tissue disease (20 sources) Pain in right thumb; Translations: [Thumb pain, right] 10-15-2022 Episodic Other ear and sense organ disorders (1 source) Bilateral tinnitus; Translations: [Tinnitus, bilateral] 09-03-2023 Episodic Other endocrine disorders (20 sources) Adrenal mass; Translations: [Adrenal nodule] 04-07-2022 Chronic Comment on above: 1.1 cm on right- had 24 hour urine normal and am cortisol was low - due for aug of next year get old records getting ct Other liver diseases (2 sources) Fatty (change of) liver, not elsewhere classified; Translations: [Fatty (change of) liver, not elsewhere classified] Onset: 01-07-2025 Chronic Other non-traumatic joint disorders (20 sources) Pain in left knee; Translations: [Left knee pain] 04-07-2022 Episodic Comment on above: continue home exerci ses ice rest prnibuprofen not routinely doingpt better with pt better Other non-traumatic joint disorders (20 sources) Shoulder pain; Translations: [Left shoulder pain] 04-07-2022 Episodic Comment on above: she managing right n ow will montior better with pt Other non-traumatic joint disorders (20 sources) Pain in left shoulder; Translations: [Left shoulder pain] 01-20-2023 Episodic Comment on above: better Other nutritional; endocrine; and metabolic disorders (20 sources) Overweight in adulthood with body mass index of 25 or more but less than 30; Translations: [BMI 27.0-27.9,adult] Resolved: 10-15-2022 10-01-2022 Episodic Other screening for suspected conditions (not mental disorders or infectious disease) (20 sources) Patient encounter status; Translations: [Encounter for screening mammogram for breast cancer (Renamed from Encounter for screening mammogram for malignant neoplasm of breast)] Onset: 10-24-2022 10-15-2022 Episodic Other upper respiratory disease (1 source) Other specified disorders of nose and nasal sinuses; Translations: [Other specified disorders of nose and nasal sinuses] Onset: 10-26-2024 Episodic Other upper respiratory infections (1 source) Acute frontal sinusitis, unspecified; Translations: [Acute frontal sinusitis, unspecified] Onset: 10-26-2024 Episodic Residual codes; unclassified (20 sources) Obstructive sleep apnea syndrome; Translations: [Obstructive sleep apnea] 10-15-2022 Chronic Residual codes; unclassified (20 sources) Non-smoker; Translations: [Nonsmoker] 10-01-2022 Episodic Residual codes; unclassified (20 sources) Postmenopausal state; Translations: [Postmenopausal] 10-15-2022 Episodic Residual codes; unclassified (1 source) Asymptomatic menopausal state; Translations: [Asymptomatic menopausal state] Onset: 02-09-2025 Episodic Unclassified (20 sources) Unclassified (1 source) Acute cough; Translations: [Acute cough] Onset: 10-26-2024 Unclassified (1 source) Personal history of colon polyps, unspecified; Translations: [Personal history of colon polyps, unspecified] Onset: 10-26-2024 Past or Other Problems Problem Classification Problem Date Documented Date Episodic/Chronic Abdominal pain (10 sources) Right upper quadrant pain; Translations: [Right upper quadrant pain] Onset: 03-15-2024 03-31-2024 Episodic Inflammation; infection of eye (except that caused by tuberculosis or sexually transmitteddisease) (1 source) Conjunctivitis of left eye; Translations: [Unspecified conjunctivitis] Episodic Other and unspecified benign neoplasm (1 source) Polyp of colon; Translations: [Polyp of colon] Onset: 10-26-2024 Episodic Other lower respiratory disease (1 source) Shortness of breath; Translations: [Shortness of breath] Onset: 09-15-2024 Episodic Unclassified (20 sources) [facility] EXAM 10-15-2022 Results Test Name Value Interpretation Reference Range Facility [facility] PROFILE[facility] 01-13-2025 Alpha 2-Macroglobulins 149 mg/dL Normal 110-276 [facility] Comment on above: Order Comment: Speci men Type: Unknown Relevant Clinical Information: Steatosis of liver Ordering Facility: [facility] Lab-CLIA#[id number] Address: [address] [place] [address] Performed By: #### [id number] #### [facility] - Interface - [id number] ALT [Catalytic activity/Vol] 17 U/L Normal 0-40 [facility] Comment on above: Order Comment: Speci men Type: Unknown Relevant Clinical Information: Steatosis of liver Ordering Facility: [facility] Lab-CLIA#[id number] Address: [address] [place] [address] Performed By: #### [id number] #### [facility] - Interface - [id number] Apolipoprotein A-1 131 mg/dL Normal 116-209 [facility] Comment on above: Order Comment: Speci men Type: Unknown Relevant Clinical Information: Steatosis of liver Ordering Facility: [facility] Lab-CLIA#[id number] Address: [address] [place] [address] Performed By: #### [id number] #### [facility] - Interface - [id number] AST [Catalytic activity/Vol] 21 U/L Normal 0-40 [facility] Comment on above: Order Comment: Speci men Type: Unknown Relevant Clinical Information: Steatosis of liver Ordering Facility: [facility] Lab-CLIA#[id number] Address: [address] [place] [address] Performed By: #### [id number] #### [facility] - Interface - [id number] Bilirubin [Mass/Vol] 0.3 mg/dL Normal 0.0-1.2 [facility] Comment on above: Order Comment: Speci men Type: Unknown Relevant Clinical Information: Steatosis of liver Ordering Facility: [facility] Lab-CLIA#[id number] Address: [address] [place] [address] Performed By: #### [id number] #### [facility] - Interface - [id number] Cholesterol [Mass/Vol] 189 mg/dL Normal 100-199 [facility] Comment on above: Order Comment: Speci men Type: Unknown Relevant Clinical Information: Steatosis of liver Ordering Facility: [facility] Lab-CLIA#[id number] Address: [address] [place] [address] Performed By: #### [id number] #### [facility] - Interface - [id number] Fibrosis Score 0.10 Normal 0.00-0.21 [facility] Comment on above: Order Comment: Speci men Type: Unknown Relevant Clinical Information: Steatosis of liver Ordering Facility: [facility] Lab-CLIA#[id number] Address: [address] [place] [address] Performed By: #### [id number] #### [facility] - Interface - [id number] Fibrosis Scoring Comment Normal . [facility] Comment on above: Order Comment: Speci men Type: Unknown Relevant Clinical Information: Steatosis of liver Ordering Facility: [facility] Lab-CLIA#[id number] Address: [address] [place] [address] Result Comment: <=0. 21 = Stage F0 - No fibrosis 0.21 - 0.27 = Stage F0 - F1 0.27 - 0.31 = Stage F1 - Portal fibrosis 0.31 - 0.48 = Stage F1 - F2 0.48 - 0.58 = Stage F2 - Bridging fibrosis with few septa 0.58 - 0.72 = Stage F3 - Bridging fibrosis with many septa 0.72 - 0.74 = Stage F3 - F4 >0.74 = Stage F4 - Cirrhosis Performed By: #### [id number] #### [facility] - Interface - [id number] Fibrosis Stage Comment Normal . [facility] Comment on above: Order Comment: Speci men Type: Unknown Relevant Clinical Information: Steatosis of liver Ordering Facility: [facility] Lab-CLIA#[id number] Address: [address] [place] [address] Result Comment: F0 - No fibrosis Performed By: #### 5 [id number] #### [facility] - Interface - [id number] Gamma glutamyl transferase [Catalytic activity/Vol] 16 U/L Normal 0-60 [facility] Comment on above: Order Comment: Speci men Type: Unknown Relevant Clinical Information: Steatosis of liver Ordering Facility: [facility] Lab-CLIA#[id number] Address: [address] [place] [address] Performed By: #### 5 [id number] #### [facility] - Interface - [id number] Glucose [Mass/Vol] 93 mg/dL Normal 70-99 [facility] Comment on above: Order Comment: Speci men Type: Unknown Relevant Clinical Information: Steatosis of liver [facility] [facility] Lab-CLIA#[id number] Address: [address] [place] [address] Performed By: #### 5 [id number] #### [facility] - Interface - [id number] Haptoglobin 144 mg/dL Normal 37-355 [facility] Comment on above: Order Comment: Speci men Type: Unknown Relevant Clinical Information: Steatosis of liver Ordering Facility: [facility] Lab-CLIA#[id number] Address: [address] [place] [address] Performed By: #### 5 [id number] #### [facility] - Interface - [id number] Methodology Comment Normal . [facility] Comment on above: Order Comment: Speci men Type: Unknown Relevant Clinical Information: Steatosis of liver Ordering Facility: [facility] Lab-CLIA#[id number] Address: [address], [place] [address] Result Comment: The analytes tested are performed by FibroSure-Specific methods. Not intended for use with other diagnostic considerations. Performed By: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 documented before study signed (09/26/2024 3:26 PM) No complications were associated with this study. Documented by Arun Paulson MD - 09/26/2024 3:24 PM Cardiac Bessemer Regulator Attending Physician Statement and Signature I have personally performed and/or personally supervised and was present for this entire procedure, including the review and interpretation of all images and physiologic tracings acquired during the course of this study. Signed at 1524 EDT Coronary Findings Diagnostic Dominance: Right Left Main The vessel was visualized by angiography. Left Anterior Descending The vessel was visualized by angiography. Left Circumflex The vessel was visualized by angiography. Right Coronary Artery The vessel was visualized by angiography. Intervention No interventions have been documented. Case Tracking Events Event Time In Patient In - Facility (Arrived) ThuSep 23, 2024 3:18 PM Medical History Prompt Yes/No Comments Date UT Unanswered Hypertension Yes Stroke Unanswered Vascular Disease Unanswered COPD Unanswered Diabetes Unanswered Surgical History Prompt Yes/No Procedure Laterality Comments Date CABG Unanswered Coronary Artery Bypass Graft Tobacco Use Never smoked or used smokeless tobacco. SNOMED CT?: Never smoked tobacco ([id number]). Vaping Use Never used Last Resulted Components Date/Time Component Value Lab Status 09/26/24 0231 CREATSERUM 0.55 Final result 09/26/24 0231 HGB 13.0 Final result Normal [facility] ANTI XA HEPARIN (UNFRACTIONA YOLETTE)on 09-25-2024 Heparin anti Xa Qn (Nonbiological fluid) 0.54 [facility] Interpretation and review of laboratory results Normal [facility] Anti Xa Heparin (Unfractionated) 0.54 IU/mL Normal 0.30-0.70 [facility] ECGon 09-25-[address] [place] [address] Test Date: 2024-09-23 Pat Name: GAURI GOLDMAN Department: EDP-16 Room: [facility] Gender: F 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1955 Requested By: RINA White Order Number: [id number] Reading MD: Unknown Fabiola Aldana Measurements Intervals [place] Rate: 88 P: 53 IL: 160 QRS: 33 QRSD: 89 T: 12 QT: 368 QTc: 446 Interpretive Statements Sinus rhythm Ventricular premature complex Low voltage, precordial leads Electronically Signed On 09-25-2024 13:40:02 EDT by Osei Aldana Normal [facility] ANTI XA HEPARIN (UNFRACTIONA YOLETTE)on 09-24-2024 Heparin anti Xa Qn (Nonbiological fluid) 0.25 Low [facility] Interpretation and review of laboratory results Abnormal [facility] Anti Xa Heparin (Unfractionated) 0.25 IU/mL Low 0.30-0.70 [facility] Heparin anti Xa Qn (Nonbiological fluid) 0.3 [facility] Interpretation and review of laboratory results Normal [facility] Anti Xa Heparin (Unfractionated) 0.30 IU/mL Normal 0.30-0.70 [facility] Comment on above: Order Comment: Draw prior to initiation of heparin infusion BASIC METABOLIC PANELon 09-10 Calcium [Mass/Vol] 9.1 mg/dL 8.6 - 10. 3 mg/dL [facility] Chloride [Moles/Vol] 106 mmol/L 98 - 10 7 mmol/L [facility] CO2 [Moles/Vol] 23 mmol/L 23 - 29 mmol/L [facility] Creatinine [Mass/Vol] 0.52 mg/dL Low 0.60 - 1.20 mg/dL [facility] eGFR, CKD-EPI, Female - [facility] Comment on above: Reported eGFR is bas ed on the CKD-EPI 202 equation using creatinine, age, and sex. Glucose [Mass/Vol] 91 mg/dL 70 - 105 mg/dL [facility] Interpretation and review of laboratory results Abnormal [facility] Osmolality Calc [Osmolality] 287 280 - 300 [facility] Potassium [Moles/Vol] 3.9 mmol/L 3.5 - 5.1 mmol/L [facility] Sodium [Moles/Vol] 138 mmol/L 136 - 145 mmol/L [facility] Urea nitrogen [Mass/Vol] 17 mg/dL 8 - 23 mg/dL [facility] Urea nitrogen/Creatinine [Mass ratio] 33 mg/mg High [facility] Calcium [Mass/Vol] 9.1 mg/dL Normal 8.6-10.3 [facility] Chloride [Moles/Vol] 106 mmol/L Normal 98-107 [facility] CO2 [Moles/Vol] 23 mmol/L Normal 23-29 [facility] Creatinine [Mass/Vol] 0.52 mg/dL Low 0.60-1.20 [facility] eGFR, CKD-EPI, Female > Normal >=60 [facility] Comment on above: Result Comment: Repo rted eGFR is based on the CKD-EPI 2020 equation using creatinine, age, and sex. Glucose [Mass/Vol] 91 mg/dL Normal 70-105 [facility] Osmolality [Osmolality] 287 mosm/kg Normal 280-300 [facility] Potassium [Moles/Vol] 3.9 mmol/L Normal 3.5-5.1 [facility] Sodium [Moles/Vol] 138 mmol/L Normal 136-145 [facility] Urea nitrogen [Mass/Vol] 17 mg/dL Normal 8-23 [facility] Urea nitrogen/Creatinine [Mass ratio] 33 mg/mg High 6-26 [facility] CBC,PLATELETSon 03-15-2025 Erythrocyte distribution width (RBC) [Ratio] 13.1 % 11.5 - 14.5 % [facility] Hematocrit (Bld) [Volume fraction] 37.5 % 35.3 - 44.9 % [facility] Hemoglobin (Bld) [Mass/Vol] 12.5 g/dL 11.5 - 15.4 g/dL [facility] Interpretation and review of laboratory results Normal [facility] MCH (RBC) [Entitic mass] 29 pg 28. 0 - 33.0 pg [facility] MCHC (RBC) [Mass/Vol] 33.3 g/dL 31.6 - 35.5 g/dL [facility] MCV (RBC) [Entitic vol] 87 fL 83.0 - 100.0 fL [facility] Platelet mean volume (Bld) [Entitic vol] 9.5 fL 9.4 - 12.4 fL [facility] Platelets (Bld) [#/Vol] 196 10*3/uL 140 - 400 K/uL [facility] RBC (Bld) [#/Vol] 4.31 10*6/uL [facility] WBC (Bld) [#/Vol] 5.3 10*3/uL 4.3 - 11.1 K/uL [facility] Hematocrit (Bld) [Volume fraction] 37.5 % Normal 35.3-44.9 [facility] Comment on above: Order Comment: Draw prior to initiation of heparin infusion Hemoglobin (Bld) [Mass/Vol] 12.5 g/dL Normal 11.5-15.4 [facility] Comment on above: Order Comment: Draw prior to initiation of heparin infusion MCV (RBC) [Entitic vol] 87.0 fL Normal 83.0-100.0 [facility] Comment on above: Order Comment: Draw prior to initiation of heparin infusion Mean Cell Hgb 29.0 pg Normal 28.0-33.0 [facility] Comment on above: Order Comment: Draw prior to initiation of heparin infusion Mean Cell Hgb Conc 33.3 g/dL Normal 31.6-35.5 [facility] Comment on above: Order Comment: Draw prior to initiation of heparin infusion Platelet mean volume (Bld) [Entitic vol] 9.5 fL Normal 9.4-12.4 [facility] Comment on above: Order Comment: Draw prior to initiation of heparin infusion Platelets (Bld) [#/Vol] 196 10*3/uL Normal 140-400 [facility] Comment on above: Order Comment: Draw prior to initiation of heparin infusion RBC (Bld) [#/Vol] 4.31 10*6/uL Normal 3.82-4.97 [facility] Comment on above: Order Comment: Draw prior to initiation of heparin infusion RBC Distribution 13.1 % Normal 11.5-14.5 [facility] Comment on above: Order Comment: Draw prior to initiation of heparin infusion WBC (Bld) [#/Vol] 5.3 10*3/uL Normal 4.3-11.1 [facility] Comment on above: Order Comment: Draw prior to initiation of heparin infusion Erythrocyte distribution width (RBC) [Ratio] 13.2 % 11.5 - 14.5 % [facility] Hematocrit (Bld) [Volume fraction] 37.5 % 35.3 - 44.9 % [facility] Hemoglobin (Bld) [Mass/Vol] 12.3 g/dL 11.5 - 15.4 g/dL [facility] Interpretation and review of laboratory results Normal [facility] MCH (RBC) [Entitic mass] 28.4 pg 28. 0 - 33.0 pg [facility] MCHC (RBC) [Mass/Vol] 32.8 g/dL 31.6 - 35.5 g/dL [facility] MCV (RBC) [Entitic vol] 86.6 fL 83.0 - 100.0 fL [facility] Platelet mean volume (Bld) [Entitic vol] 9.7 fL 9.4 - 12.4 fL [facility] Platelets (Bld) [#/Vol] 208 10*3/uL 140 - 400 K/uL [facility] RBC (Bld) [#/Vol] 4.33 10*6/uL [facility] WBC (Bld) [#/Vol] 7 10*3/uL 4.3 - 11.1 K/uL [facility] Hematocrit (Bld) [Volume fraction] 37.5 % Normal 35.3-44.9 [facility] Comment on above: Order Comment: Draw prior to initiation of heparin infusion Hemoglobin (Bld) [Mass/Vol] 12.3 g/dL Normal 11.5-15.4 [facility] Comment on above: Order Comment: Draw prior to initiation of heparin infusion MCV (RBC) [Entitic vol] 86.6 fL Normal 83.0-100.0 [facility] Comment on above: Order Comment: Draw prior to initiation of heparin infusion Mean Cell Hgb 28.4 pg Normal 28.0-33.0 [facility] Comment on above: Order Comment: Draw prior to initiation of heparin infusion Mean Cell Hgb Conc 32.8 g/dL Normal 31.6-35.5 [facility] Comment on above: Order Comment: Draw prior to initiation of heparin infusion Platelet mean volume (Bld) [Entitic vol] 9.7 fL Normal 9.4-12.4 [facility] Comment on above: Order Comment: Draw prior to initiation of heparin infusion Platelets (Bld) [#/Vol] 208 10*3/uL Normal 140-400 [facility] Comment on above: Order Comment: Draw prior to initiation of heparin infusion RBC (Bld) [#/Vol] 4.33 10*6/uL Normal 3.82-4.97 [facility] Comment on above: Order Comment: Draw prior to initiation of heparin infusion RBC Distribution 13.2 % Normal 11.5-14.5 [facility] Comment on above: Order Comment: Draw prior to initiation of heparin infusion WBC (Bld) [#/Vol] 7.0 10*3/uL Normal 4.3-11.1 [facility] Comment on above: Order Comment: Draw prior to initiation of heparin infusion Cardiac echo study Procedure on 09-24-2024 Ao annulus index 1.52 cm/m2 [facility] Ao peak jose f 1.19 m/s [facility] Ao root annulus 2.4 cm [facility] Ao SOV index 1.66 cm/m2 [facility] Ao STJ index 1.49 cm/m2 [facility] Ao VTI 28.5 cm [facility] AV LVOT peak gradient 3 mmHg [facility] AV mean gradient 3 mmHg [facility] AV peak gradient 6 mmHg [facility] AV valve area 1.97 cm2 [facility] Velocity Ratio 0.67 [facility] EALTH NORM (continuity Vmax) 2.11 cm2 [facility] NORM (continuity VTI) 1.97 cm2 [facility] NORM index (continuity Vmax) 1.34 m/s [facility] NORM index (continuity VTI) 1.25 cm2/m2 [facility] Avg e' pk jose f 0.1 m/s [facility] Avg E/e' ratio 6.79 [facility] TH Body surface area Derived from formula 1.58 m2 [facility] BP EF 56 % [facility] DI (Vmax) 0.67 [facility] DI (VTI) 0.63 m/2 [facility] e' lateral pk jose f 0.107 m/s [facility] e' lateral pk jose f 0.11 m/s [facility] e' septal pk jose f 0.085 m/s [facility] e' septal pk jose f 0.09 m/s [facility] E/A ratio 1.06 [facility] E/e' lateral ratio 6.01 [facility] E/e' septal ratio 7.56 [facility] EALTH EF SP 2CH 50 [facility] EF SP 4CH 60 [facility] FS 37 % [facility] IVS 0.78 cm [facility] LA AREA 2CH 13.4 cm2 [facility] LA area 4CH 11.4 cm2 [facility] LA ESV BP (MOD) 27 mL [facility] LA ESV BP (MOD) index 17 mL/m2 [facility] LA ESV SP 2CH (MOD) 30 mL [facility] LA ESV SP 4CH (MOD) 23 mL [facility] LA size 3 cm [facility] LEFT ATRIAL DIAMETER INDEX 1.9 cm/m2 [facility] LV EDV BP 45 mL [facility] LV EDV SP 2CH 40 mL [facility] LV EDV SP 4CH 47 mL [facility] LV ESV BP 20 mL [facility] LV ESV SP 2CH 20 mL [facility] LV ESV SP 4CH 19 mL [facility] LV mass 112.62 g [facility] LV Mass Index 71.3 g/m2 [facility] LV RWT 0.35 [facility] LV stroke volume BP (ml) 25 mL [facility] LV stroke volume index BP 15.82 mL/m2 [facility] LVIDD 4.52 cm [facility] LVIDS 2.84 cm [facility] LVOT area 3.14 cm2 [facility] LVOT diameter 2 cm [facility] LVOT peak jose f 0.8 m/s [facility] LVOT peak VTI 17.9 cm [facility] LVOT stroke volume 56 cm3 [facility] LVOT stroke volume index 35.57 ml/m2 [facility] MV pk A jose f 0.608 m/s [facility] MV pk E jose f 0.643 m/s [facility] MV stenosis pressure 1/2 time 61 ms [facility] MV valve area p 1/2 method 3.61 cm2 [facility]SU AV VTI RATIO PRE STRESS 0.63 [facility] ECHO LV BIPLANE SYSTOLIC VOLUME INDEX 12.66 mL/m2 [facility] TH [facility] ECHO LV BP DIASTOLIC VOLUME INDEX 28.48 mL/m2 [facility] IL pk jose f 1.02 m/s [facility] Pulmonary artery end diastolic pressure 4 mmHg [facility] PW 0.8 cm [facility] RA area 4CH (MOD) 14.3 cm2 [facility] EALTH RA vol index 4CH (MOD) 23.42 mL/m2 [facility] Right atrium volume 4 chamber method of disks 37 mL [facility] RV basal diam 4.39 cm [facility] RV long diam 7.59 cm [facility] RV mid diam 3.84 cm [facility] RV S' 10.7 cm/s [facility] Sinus 2.62 cm [facility] STJ 2.36 cm [facility] Stroke Volume 56 cm/mL [facility] Stroke volume index 36 [facility] TAPSE 2.26 cm [facility] TR pk grad 4 mmHg [facility] TR pk jose f 1.02 m/s [facility] No prior study at this institution for comparison. Left Ventricle: Chamber size is normal. Increased wall thickness. Mild concentric hypertrophy. Normal global systolic function. Regional wall motion is normal. Ejection fraction is normal (55 - 60%). Diastolic function is normal. Right Ventricle: Chamber size is moderately enlarged. Systolic function is normal.incomplete TR jet to assess RVSP Left Atrium: Chamber size is normal. Aortic Valve: Trileaflet valve. Leaflet mobility is normal. No regurgitation. No stenosis. Mitral Valve: Normal appearing leaflets. Leaflet mobility is normal. No regurgitation. No valve stenosis. Tricuspid Valve: Normal leaflets. Leaflet mobility is normal. Trace regurgitation. No stenosis. Left Ventricle Chamber size is normal. Increased wall thickness. Mild concentric hypertrophy. Normal global systolic function. Regional wall motion is normal. Ejection fraction is normal (55 - 60%). Diastolic function is normal. Right Ventricle Chamber size is moderately enlarged. Systolic function is normal. Left Atrium Chamber size is normal. Right Atrium Chamber size is normal. IVC/SVC The inferior vena cava is normal in size. The inferior vena cava structure has a diameter <21 mm and decreases >50% during inspiration. Mitral Valve Normal appearing leaflets. Leaflet mobility is normal. No regurgitation. No valve stenosis. Tricuspid Valve Normal leaflets. Leaflet mobility is normal. Trace regurgitation. No stenosis. Aortic Valve Trileaflet valve. Leaflet mobility is normal. No regurgitation. No stenosis. Pulmonic Valve Normal structure. Trace regurgitation. No stenosis. Pericardium No pericardial effusion. Septum The atrial septum is normal. Aorta No dilation to extent seen. Annulus: 2.400 cm. SOV: 2.620 cm. STJ: 2.360 cm. Study Details A complete echocardiography study (including color flow Doppler, spectral Doppler and M-mode) was performed. Imaging system used: [employer]. Indications Indications for study: chest pain and abnormal ecg. Wall Scoring Score Index: 1.00 The left ventricular wall motion is normal. [facility] Radiology Study observation (narrative) [facility] ECHOCARDIOGRAMon 09-24-2024 Echocardiography ? No prior study at this institution for comparison. ? Left Ventricle: Chamber size is normal. Increased wall thickness. Mild concentric hypertrophy. Normal global systolic function. Regional wall motion is normal. Ejection fraction is normal (55 - 60%). Diastolic function is normal. ? Right Ventricle: Chamber size is moderately enlarged. Systolic function is normal.incomplete TR jet to assess RVSP ? Left Atrium: Chamber size is normal. ? Aortic Valve: Trileaflet valve. Leaflet mobility is normal. No regurgitation. No stenosis. ? Mitral Valve: Normal appearing leaflets. Leaflet mobility is normal. No regurgitation. No valve stenosis. ? Tricuspid Valve: Normal leaflets. Leaflet mobility is normal. Trace regurgitation. No stenosis. Table formatting from the original result was not included. Images from the original result were not included. [facility] Patient Information Patient Name Gauri Goldman Legal Sex Female Indication for Exam Priority: Routine Dx: Other chest pain [R07.89 (ICD-10-CM)] Order Question Reason for Exam Chest pain. Abnormal stress Interpretation Summary Result History is available. ? No prior study at this institution for comparison. ? Left Ventricle: Chamber size is normal. Increased wall thickness. Mild concentric hypertrophy. Normal global systolic function. Regional wall motion is normal. Ejection fraction is normal (55 - 60%). Diastolic function is normal. ? Right Ventricle: Chamber size is moderately enlarged. Systolic function is normal.incomplete TR jet to assess RVSP ? Left Atrium: Chamber size is normal. ? Aortic Valve: Trileaflet valve. Leaflet mobility is normal. No regurgitation. No stenosis. ? Mitral Valve: Normal appearing leaflets. Leaflet mobility is normal. No regurgitation. No valve stenosis. ? Tricuspid Valve: Normal leaflets. Leaflet mobility is normal. Trace regurgitation. No stenosis. Findings Left Ventricle Chamber size is normal. Increased wall thickness. Mild concentric hypertrophy. Normal global systolic function. Regional wall motion is normal. Ejection fraction is normal (55 - 60%). Diastolic function is normal. Right Ventricle Chamber size is moderately enlarged. Systolic function is normal. Left Atrium Chamber size is normal. Right Atrium Chamber size is normal. Septum The atrial septum is normal. Mitral Valve Normal appearing leaflets. Leaflet mobility is normal. No regurgitation. No valve stenosis. Aortic Valve Trileaflet valve. Leaflet mobility is normal. No regurgitation. No stenosis. Tricuspid Valve Normal leaflets. Leaflet mobility is normal. Trace regurgitation. No stenosis. Pulmonic Valve Normal structure. Trace regurgitation. No stenosis. Aorta No dilation to extent seen. Annulus: 2.400 cm. SOV: 2.620 cm. STJ: 2.360 cm. Pericardium No pericardial effusion. IVC/SVC The inferior vena cava is normal in size. The inferior vena cava structure has a diameter <21 mm and decreases >50% during inspiration. Reading Providers Reading Role Read Date Alvaro Johnson MD Echo [place] 09/24/2024 Wall Scoring Score Index: 1.00 The left ventricular wall motion is normal. Left Heart Measurements LV - Systole LVIDD 4.52 cm IVS 0.78 cm LVIDS 2.84 cm PW 0.8 cm LV RWT 0.35 LV Mass Index 71.3 g/m2 LV EDV BP 45 mL LV ESV BP 20 mL BP EF 56 % LV stroke volume BP (ml) 25 mL LV stroke volume index BP 15.82 mL/m2 LV - Diastole MV pk E jose f 0.643 m/s MV pk A jose f 0.608 m/s E/A ratio 1.06 e' septal pk jose f 0.09 m/s e' lateral pk jose f 0.11 m/s Avg e' pk jose f 0.1 m/s E/e' septal ratio 7.56 E/e' lateral ratio 6.01 Avg E/e' ratio 6.79 LV - HCM AV LVOT peak gradient 3 mmHg Left Atrium LA size 3 cm LA ESV SP 4CH (MOD) 23 mL LA ESV SP 2CH (MOD) 30 mL LA ESV BP (MOD) index 17 mL/m2 Right Heart Measurements RV - 2D RV basal diam 4.39 cm RV mid diam 3.84 cm RV long diam 7.59 cm RV - Doppler TAPSE 2.26 cm RV S' 10.7 cm/s Right Atrium RA vol index 4CH (MOD) 23.42 mL/m2 RA area 4CH (MOD) 14.3 cm2 [facility] Aortic Root - End Diastolic Ao root annulus 2.4 cm Sinus 2.62 cm STJ 2.36 cm Doppler Measurements - Aortic Valve Stenosis LVOT diameter 2 cm LVOT area 3.14 cm2 LVOT peak jose f 0.8 m/s LVOT peak VTI 17.9 cm Stroke Volume 56 cm/mL Stroke volume index 36 Ao peak jose f 1.19 m/s Ao VTI 28.5 cm AV peak gradient 6 mmHg AV mean gradient 3 mmHg DI (VTI) 0.63 m/2 DI (Vmax) 0.67 NORM (continuity Vmax) 2.11 cm2 NORM index (continuity Vmax) 1.34 m/s NORM (continuity VTI) 1.97 cm2 NORM index (continuity VTI) 1.25 cm2/m2 LVOT stroke volume 56 cm3 LVOT stroke volume index 35.57 ml/m2 (more content not included)... [facility] HEMOGLOBIN A1Con 09-24-2024 Average glucose Estimated from glycated hemoglobin (Bld) [Mass/Vol] 117 mg/dL [facility] Comment on above: Estimated glucose ca lculated using (28.7 x HGBA1C) - 46.7 HbA1c (Bld) [Mass fraction] 5.7 % High NINF - 5.7 % [facility] Comment on above: ADA Recommendations: Normal........ less than 5.7% Prediabetes... 5.7% to 6.4% Diabetes...... 6.5% or higher Glycemic Goal (known diabetics): < 8%...... Less stringent < 7%...... General (non- adults) < 6.5%.... More stringent Interpretation and review of laboratory results Abnormal [facility] Glucose [Mass/Vol] 117 mg/dL Normal [facility] Comment on above: Result Comment: Joy mated glucose calculated using (28.7 x HGBA1C) - 46.7 HbA1c (Bld) [Mass fraction] 5.7 % High <5.7 [facility] Comment on above: Result Comment: ADA Recommendations: Normal........ less than 5.7% Prediabetes... 5.7% to 6.4% Diabetes...... 6.5% or higher Glycemic Goal (known diabetics): < 8%...... Less stringent < 7%...... General (non- adults) < 6.5%.... More stringent LIPID PANEL WITH REFLEX TO M EASURED LDLon 09-24-2024 Cholesterol [Mass/Vol] 156 mg/dL NINF - 200 mg/dL [facility] Cholesterol in HDL [Mass/Vol] 57 mg/dL 40 - 59 mg/dL [facility] Comment on above: Please evaluate HDL levels in context with other risk factors. (AHA Guidelines.2017) Cholesterol in LDL [Mass/Vol] 83 mg/dL NINF - 100 mg/dL [facility] Comment on above: LDL cholesterol is e stimated using the Friedewald equation. Cholesterol.total/Cholest nirmala in HDL [Mass ratio] 2.7 {ratio} 0.0 - 4.9 [facility] Interpretation and review of laboratory results Normal [facility] Triglyceride [Mass/Vol] 81 mg/dL [facility]dL [facility] VLDL Cholesterol, Calculated 16 mg/dL [facility] - 31 mg/dL [facility] Calculated LDL Cholesterol 83 mg/dL Normal <100 [facility] Comment on above: Result Comment: LDL cholesterol is estimated using the Friedewald equation. Cholesterol [Mass/Vol] 156 mg/dL Normal <200 [facility] Cholesterol in HDL [Mass/Vol] 57 mg/dL Normal 40-59 [facility] Comment on above: Result Comment: Plea se evaluate HDL levels in context with other risk factors. (AHA Guidelines.2017) Tot Chol/HDL 2.7 Normal 0.0-4.9 [facility] Triglyceride [Mass/Vol] 81 mg/dL Normal <150 [facility] VLDL Cholesterol, Calculated 16 mg/dL Normal <31 [facility] No Panel Informationon 09-24 [facility] PROTIME-INRon 09-24-2024 INR Coag (Bld) [Relative time] 1 {INR} - 4.3 [facility] Comment on above: For Patients on oral anticoagulants, the therapeutic INR reference range is 2.0 to 3.5 Interpretation and review of laboratory results Normal [facility] PT Coag (PPP) [Time] 11.4 s [facility] INR Coag (PPP) [Relative time] 1.0 {INR} Normal [facility] Comment on above: Order Comment: Draw prior to initiation of heparin infusion Result Comment: For Patients on oral anticoagulants, the therapeutic INR reference range is 2.0 to 3.5 PT Coag (PPP) [Time] 11.4 s Normal 9.4-12.1 [facility] [place] Comment on above: Order Comment: Draw prior to initiation of heparin infusion PTTOrdered By: Tra Rai on 09-24-2024 aPTT Coag (PPP) [Time] 56.3 s High [facility] Interpretation and review of laboratory results Abnormal [facility] PTTon 09-24-2024 aPTT Coag (Bld) [Time] 56.3 s High 26.0-36.0 [facility] Comment on above: Order Comment: Draw prior to initiation of heparin infusion ANTI XA HEPARIN (UNFRACTIONA YOLETTE)on 09-23-2024 Heparin anti Xa Qn (Nonbiological fluid) 0.32 [facility] Interpretation and review of laboratory results Normal [facility] Anti Xa Heparin (Unfractionated) 0.32 IU/mL Normal 0.30-0.70 [facility] Heparin anti Xa Qn (Nonbiological fluid) 0.43 [facility] Interpretation and review of laboratory results Normal [facility] Anti Xa Heparin (Unfractionated) 0.43 IU/mL Normal 0.30-0.70 [facility] Heparin anti Xa Qn (Nonbiological fluid) Low [facility] Interpretation and review of laboratory results Abnormal [facility] Anti Xa Heparin (Unfractionated) <0.04 Low 0.30-0.70 [facility] Comment on above: Order Comment: Draw prior to initiation of heparin infusion BASIC METABOLIC PANELon 09-10 Calcium [Mass/Vol] 9.2 mg/dL 8.6 - 10. 3 mg/dL [facility] Chloride [Moles/Vol] 104 mmol/L 98 - 10 7 mmol/L [facility] CO2 [Moles/Vol] 29 mmol/L 23 - 29 mmol/L [facility] Creatinine [Mass/Vol] 0.69 mg/dL 0.60 - 1.20 mg/dL [facility] eGFR, CKD-EPI, Female - [facility] Comment on above: Reported eGFR is bas ed on the CKD-EPI 2020 equation using creatinine, age, and sex. Glucose [Mass/Vol] 101 mg/dL 70 - 105 mg/dL [facility] Osmolality Calc [Osmolality] 291 280 - 300 [facility] Potassium [Moles/Vol] 3.7 mmol/L 3.5 - 5.1 mmol/L [facility] Sodium [Moles/Vol] 140 mmol/L 136 - 145 mmol/L [facility] Urea nitrogen [Mass/Vol] 14 mg/dL 8 - 23 mg/dL [facility] Urea nitrogen/Creatinine [Mass ratio] 20 mg/mg 6 - 26 [facility] Calcium [Mass/Vol] 9.2 mg/dL Normal 8.6-10.3 [facility] Chloride [Moles/Vol] 104 mmol/L Normal 98-107 [facility] CO2 [Moles/Vol] 29 mmol/L Normal 23-29 [facility] Creatinine [Mass/Vol] 0.69 mg/dL Normal 0.60-1.20 [facility] eGFR, CKD-EPI, Female > Normal >=60 [facility] Comment on above: Result Comment: Repo rted eGFR is based on the CKD-EPI 2020 equation using creatinine, age, and sex. Glucose [Mass/Vol] 101 mg/dL Normal 70-105 [facility] Osmolality [Osmolality] 291 mosm/kg Normal 280-300 [facility] Potassium [Moles/Vol] 3.7 mmol/L Normal 3.5-5.1 [facility] Sodium [Moles/Vol] 140 mmol/L Normal 136-145 [facility] Urea nitrogen [Mass/Vol] 14 mg/dL Normal 8-23 [facility] Urea nitrogen/Creatinine [Mass ratio] 20 mg/mg Normal 6-26 [facility] CBC AND ELECTRONIC DIFFon Basophils (Bld) [#/Vol] 0 10*3/uL 0.0 - 0.2 K/uL [facility] Basophils/100 WBC (Bld) 0.4 % [facility] Eosinophils (Bld) [#/Vol] 0.1 10*3/uL 0. 0 - 0.6 K/uL [facility] Eosinophils/100 WBC (Bld) 2.5 % [facility] Erythrocyte distribution width (RBC) [Ratio] 13.1 % 11.5 - 14.5 % [facility] Hematocrit (Bld) [Volume fraction] 39.6 % 35.3 - 44.9 % [facility] Hemoglobin (Bld) [Mass/Vol] 13.5 g/dL 11.5 - 15.4 g/dL [facility] Immature granulocytes/100 WBC (Bld) 0.4 % [facility] Interpretation and review of laboratory results Abnormal [facility] Lymphocytes (Bld) [#/Vol] 1.5 10*3/uL 0. 6 - 4.6 K/uL [facility] Lymphocytes/100 WBC (Bld) 32.5 % [facility] MCH (RBC) [Entitic mass] 29.2 pg 28. 0 - 33.0 pg [facility] MCHC (RBC) [Mass/Vol] 34.1 g/dL 31.6 - 35.5 g/dL [facility] MCV (RBC) [Entitic vol] 85.7 fL 83.0 - 100.0 fL [facility] Monocytes (Bld) [#/Vol] 0.4 10*3/uL 0.0 - 1.3 K/uL [facility] Monocytes/100 WBC (Bld) 8 % [facility] Neutrophils (Bld) [#/Vol] 2.7 10*3/uL 1. 6 - 8.9 K/uL [facility] Nucleated RBC/100 WBC (Bld) [Ratio] 0 % /100 WBC [facility] Platelet mean volume (Bld) [Entitic vol] 8.9 fL Low 9.4 - 12.4 fL [facility] Platelets (Bld) [#/Vol] 204 10*3/uL 140 - 400 K/uL [facility] RBC (Bld) [#/Vol] 4.62 10*6/uL [facility] Segmented neutrophils/100 WBC (Bld) 56.2 % [facility] WBC (Bld) [#/Vol] 4.7 10*3/uL 4.3 - 11.1 K/uL [facility] Basophils (Bld) [#/Vol] 0.0 10*3/uL Normal 0.0-0.2 [facility] Basophils/100 WBC (Bld) 0.4 % Normal P [facility] Eosinophils (Bld) [#/Vol] 0.1 10*3/uL Normal 0.0-0.6 [facility] Eosinophils/100 WBC (Bld) 2.5 % Normal [facility] Hematocrit (Bld) [Volume fraction] 39.6 % Normal 35.3-44.9 [facility] Hemoglobin (Bld) [Mass/Vol] 13.5 g/dL Normal 11.5-15.4 [facility] Immature Grans % 0.4 % Normal [facility] Lymphocytes (Bld) [#/Vol] 1.5 10*3/uL Normal 0.6-4.6 [facility] Lymphocytes/100 WBC (Bld) 32.5 % Normal [facility] MCV (RBC) [Entitic vol] 85.7 fL Normal 83.0-100.0 [facility] Mean Cell Hgb 29.2 pg Normal 28.0-33.0 [facility] Mean Cell Hgb Conc 34.1 g/dL Normal 31.6-35.5 [facility] Monocytes (Bld) [#/Vol] 0.4 10*3/uL Normal 0.0-1.3 [facility] Monocytes/100 WBC (Bld) 8.0 % Normal [facility] Nucleated RBC 0 /100 WBC Normal [facility] Platelet mean volume (Bld) [Entitic vol] 8.9 fL Low 9.4-12.4 [facility] Platelets (Bld) [#/Vol] 204 10*3/uL Normal 140-400 [facility] RBC (Bld) [#/Vol] 4.62 10*6/uL Normal 3.82-4.97 [facility] RBC Distribution 13.1 % Normal 11.5-14.5 [facility] Segs + Bands Auto 56.2 % Normal [facility] Segs + Bands,Absolute Auto 2.7 K/uL Normal 1.6-8.9 [facility] WBC (Bld) [#/Vol] 4.7 10*3/uL Normal 4.3-11.1 [facility] CBC,PLATELETSon 09-23-2024 Erythrocyte distribution width (RBC) [Ratio] 13.1 % 11.5 - 14.5 % [facility] Hematocrit (Bld) [Volume fraction] 40.5 % 35.3 - 44.9 % [facility] Hemoglobin (Bld) [Mass/Vol] 13.4 g/dL 11.5 - 15.4 g/dL [facility] Interpretation and review of laboratory results Normal [facility] MCH (RBC) [Entitic mass] 28.4 pg 28. 0 - 33.0 pg [facility] MCHC (RBC) [Mass/Vol] 33.1 g/dL 31.6 - 35.5 g/dL [facility] MCV (RBC) [Entitic vol] 85.8 fL 83.0 - 100.0 fL [facility] Platelet mean volume (Bld) [Entitic vol] 9.5 fL 9.4 - 12.4 fL [facility] Platelets (Bld) [#/Vol] 221 10*3/uL 140 - 400 K/uL [facility] RBC (Bld) [#/Vol] 4.72 10*6/uL [facility] WBC (Bld) [#/Vol] 6.9 10*3/uL 4.3 - 11.1 K/uL [facility] Hematocrit (Bld) [Volume fraction] 40.5 % Normal 35.3-44.9 [facility] Comment on above: Order Comment: Draw prior to initiation of heparin infusion Hemoglobin (Bld) [Mass/Vol] 13.4 g/dL Normal 11.5-15.4 [facility] Comment on above: Order Comment: Draw prior to initiation of heparin infusion MCV (RBC) [Entitic vol] 85.8 fL Normal 83.0-100.0 [facility] Comment on above: Order Comment: Draw prior to initiation of heparin infusion Mean Cell Hgb 28.4 pg Normal 28.0-33.0 [facility] Comment on above: Order Comment: Draw prior to initiation of heparin infusion Mean Cell Hgb Conc 33.1 g/dL Normal 31.6-35.5 [facility] Comment on above: Order Comment: Draw prior to initiation of heparin infusion Platelet mean volume (Bld) [Entitic vol] 9.5 fL Normal 9.4-12.4 [facility] Comment on above: Order Comment: Draw prior to initiation of heparin infusion Platelets (Bld) [#/Vol] 221 10*3/uL Normal 140-400 [facility] Comment on above: Order Comment: Draw prior to initiation of heparin infusion RBC (Bld) [#/Vol] 4.72 10*6/uL Normal 3.82-4.97 [facility] Comment on above: Order Comment: Draw prior to initiation of heparin infusion RBC Distribution 13.1 % Normal 11.5-14.5 [facility] Comment on above: Order Comment: Draw prior to initiation of heparin infusion WBC (Bld) [#/Vol] 6.9 10*3/uL Normal 4.3-11.1 [facility] Comment on above: Order Comment: Draw prior to initiation of heparin infusion HIGH SENSITIVITY TROPONIN I - SINGLE ORDERon 09-23-2024 Interpretation and review of laboratory results Normal [facility] Troponin I.cardiac High sensitivity method [Mass/Vol] 3 ng/L NINF - 15 ng/L [facility] Do not make clinical decisions without considering all other risk factors, e.g. HEART score. The [employer] [place] Access High Sensitivity Troponin I (hsTnI) chemiluminescent immunoassay is used; do not compare results obtained from different assays. [facility] hs-Troponin I 3 ng/L Normal <15 [facility] Comment on above: Order Comment: Do no t make clinical decisions without considering all other risk factors, e.g. HEART score. The [employer] [place] Access High Sensitivity Troponin I (hsTnI) chemiluminescent immunoassay is used; do not compare results obtained from different assays. Interpretation and review of laboratory results Normal [facility] Troponin I.cardiac High sensitivity method [Mass/Vol] ng/L NINF - 15 ng/L [facility] Do not make clinical decisions without considering all other risk factors, e.g. HEART score. The [employer] Access High Sensitivity Troponin I (hsTnI) chemiluminescent immunoassay is used; do not compare results obtained from different assays. [facility] INFLUENZA A/B ANTIGENOrdered By: Munir Shane on 09-23-2024 FLUAV and FLUBV Ag IF Nom (Unsp spec) Negative Negative [facility] Influenza B Antigen Negative Negative [facility] Interpretation and review of laboratory results Normal [facility] INFLUENZA A/B ANTIGENon 09-10 Influenza A Antigen Negative Normal Negative [facility] Influenza B Antigen Negative Normal Negative [facility] MAGNESIUMon 09-23-2024 Magnesium [Mass/Vol] 2.1 mg/dL 1.6 - 2 .6 mg/dL [facility] Magnesium [Mass/Vol] 2.1 mg/dL Normal 1.6-2.6 [facility] No Panel Informationon 09-23 Interpretation and review of laboratory results Normal [facility] PROTIME-INRon 09-23-2024 INR Coag (Bld) [Relative time] 1 {INR} - 4.3 [facility] Comment on above: For Patients on oral anticoagulants, the therapeutic INR reference range is 2.0 to 3.5 Interpretation and review of laboratory results Normal [facility] PT Coag (PPP) [Time] 11.1 s [facility] INR Coag (PPP) [Relative time] 1.0 {INR} Normal [facility] Comment on above: Order Comment: Draw prior to initiation of heparin infusion Result Comment: For Patients on oral anticoagulants, the therapeutic INR reference range is 2.0 to 3.5 PT Coag (PPP) [Time] 11.1 s Normal 9.4-12.1 [facility] Comment on above: Order Comment: Draw prior to initiation of heparin infusion PTTon 09-23-2024 aPTT Coag (PPP) [Time] 32.2 s [facility] Interpretation and review of laboratory results Normal [facility] aPTT Coag (Bld) [Time] 32.2 s Normal 26.0-36.0 [facility] Comment on above: Order Comment: Draw prior to initiation of heparin infusion Portable XR Chest Viewson IMPRESSION: No acute cardiopulmonary process. D/ / Patrick Renteria Interpreting Provider: Patrick Renteria OLOGY EXAMINATION: ONE XRAY VIEW OF THE CHEST 09/23/2024 8:45 am COMPARISON: None. HISTORY: ORDERING SYSTEM PROVIDED HISTORY: TECHNOLOGIST PROVIDED HISTORY: Reason for Exam: Chest pain; FINDINGS: The cardiomediastinal silhouette and pulmonary vasculature are within normal limits. No consolidative opacity, pleural effusion or pneumothorax. No acute osseous abnormality. RADIOLOGY Patrick Renteria MD - 09/23/2024 EXAMINATION: ONE XRAY VIEW OF THE CHEST 09/23/2024 8:45 am COMPARISON: None. HISTORY: ORDERING SYSTEM PROVIDED HISTORY: TECHNOLOGIST PROVIDED HISTORY: Reason for Exam: Chest pain; FINDINGS: The cardiomediastinal silhouette and pulmonary vasculature are within normal limits. No consolidative opacity, pleural effusion or pneumothorax. No acute osseous abnormality. IMPRESSION IMPRESSION: No acute cardiopulmonary process. D/ / Patrick Renteria Interpreting Provider: Patrick Renteria [facility] Rad[facility] Study observation (narrative) [facility] Portable XR Chest ViewsOrder ed By: Patrick Renteria on 09-23-2024 [facility] Work Phone: SARS-COV-2 RAPID ANTIGENon 0 09-23-2024 Interpretation and review of laboratory results Normal [facility] SARS-CoV+SARS-CoV-2 (COVID-19) Ag IA.rapid Ql (Resp) Negative Negative [facility] SARS-Covid Rapid Antigen Negative Normal Negative [facility] Comment on above: Order Comment: . TROPONIN 1 HOURon 09-23-2024 Interpretation and review of laboratory results Normal [facility] Troponin I.cardiac High sensitivity method [Mass/Vol] ng/L NINF - 15 ng/L [facility] Do not make clinical decisions without considering all other risk factors, e.g. HEART score. The [employer] [place] Access High Sensitivity Troponin I (hsTnI) chemiluminescent immunoassay is used; do not compare results obtained from different assays. [facility] 1 Hour hs-Troponin <3 Normal <15 [facility] Comment on above: Order Comment: Do no t make clinical decisions without considering all other risk factors, e.g. HEART score. The [employer] Access High Sensitivity Troponin I (hsTnI) chemiluminescent immunoassay is used; do not compare results obtained from different assays. TROPONIN I INITIALon Interpretation and review of laboratory results Normal [facility] Troponin I.cardiac High sensitivity method [Mass/Vol] ng/L NINF - 15 ng/L [facility] Do not make clinical decisions without considering all other risk factors, e.g. HEART score. The [employer] Access High Sensitivity Troponin I (hsTnI) chemiluminescent immunoassay is used; do not compare results obtained from different assays. [facility] hs-Troponin I <3 Normal <15 [facility] Comment on above: Order Comment: Do no t make clinical decisions without considering all other risk factors, e.g. HEART score. The [employer] Access High Sensitivity Troponin I (hsTnI) chemiluminescent immunoassay is used; do not compare results obtained from different assays. XR CHEST 1 VIEW PORTABLEon 0 09-23-2024 XR CHEST 1 VIEW PORTABLE EXAMINATION: ONE XRAY VIEW OF THE CHEST 09/23/2024 8:45 am COMPARISON: None. HISTORY: ORDERING SYSTEM PROVIDED HISTORY: TECHNOLOGIST PROVIDED HISTORY: Reason for Exam: Chest pain; FINDINGS: The cardiomediastinal silhouette and pulmonary vasculature are within normal limits. No consolidative opacity, pleural effusion or pneumothorax. No acute osseous abnormality. IMPRESSION: No acute cardiopulmonary process. D/ / Patrick Renteria Interpreting Provider: Patrick Renteria Normal [facility] Cardiovascular stress test r eportOrdered By: Dat Sheikh on 09-22-2024 Study report [facility] [address] [place] [id number] MR#: [id number] Acct: [id number] Name: GAURI GOLDMAN RENETTA Rep #: [id number] : [id number] From: Dat heredia MD Primary Care: Dr. Cynthia Sun DO Status: REG CLI Referring Dr: Cynthia Sun DO Sex: F C Stress Test Report Date: 09/22/2024 Procedure: Exercise tolerance test/imaging study Indications: Abnormal EKG, palpitations Consent: Per the patient Procedure: The patient exercised on a Osvaldo protocol for 7 minutes and 1 second achieving apeak heart rate of 162 bpm (105% predicted maximal heart rate) with a peak bloodpressure 180/82 mmHg and a peak MET capacity of 10.1 METs. The baseline ECG demonstrated normal sinus rhythm. The peak exercise ECG demonstrated sinus tachycardia with 1 to [address] depression in lead III and horizontal to upsloping ST depression in aVF. There is also upsloping ST depression in lead II and the lateral leads. EKG during recovery revealed initially patient's ST changes with trending back to baseline. About 3 minutes into the recovery phase patient started having horizontal to downsloping ST depressions (about 1 mm) in the inferior leads. [There were no cardiac dysrhythmias pretest, during exercise, or recovery]. The functional capacity was considered excellent for age. Patient had chest pain with exercise that eventually resolved with sublingual nitroglycerin. The examination was discontinued secondary to achieving target heart rate. Impression: 1. Technically adequate (percent predicted maximal heart rate greater than 85%)exercise tolerance test 2. Stress test is positive for exercise-induced EKG changes of ischemia 3. The test test is positive for exercise-induced chest pain 4. Functional capacity is excellent for age 5. Nuclear images pending Myocardial perfusion imaging study: Technique: The patient was injected with 11.6 mCi of technetium 99m Cardiolite and subsequently rest SPECT Cardiolite nuclear imaging was obtained in the horizontal long, vertical long, and short axis views. The patient exercised on aBruce protocol. Please see above for details. The patient was injected with 34.1 mCi of technetium 99m Cardiolite and subsequently stress SPECT Cardiolite nuclear imaging was obtained in the horizontal long, vertical long, and short axis views. A gated Cardiolite study at peak stress was obtained. Interpretation: Rest and stress SPECT Cardiolite nuclear imaging status post realignment, normalization, and attenuation correction, demonstrates overall normal myocardial radioisotope uptake. There is no evidence of significant ischemia orinfarction. The gated Cardiolite study demonstrates no significant regional wall motion abnormalities. The reported LVEF is greater than 70%. Impression: 1. There is no evidence of significant ischemia or infarction. Please see above for the EKG portion of the test. 2. The gated Cardiolite study reports an LVEF of greater than 70%. This note was generated with [employer]appTimeation software. It may contain incorrectwords, spelling, and punctuation that were not noted in checking the note beforesigning. 09/22/24 1330 Date _ Dat Sheikh MD CC: Dr. Cynthia Sun DO ~ Date Dictated: 09/22/241324 Date Transcribed: 09/22/241324 Slitting Machine Feeder: NN Signed [facility] Work Phone: Stress Reporton 03-13-2025 Stress Report [facility] [address] [place] [address] MR#: [id number] Acct: [id number] Name: GAURI GOLDMAN Rep #: [id number] : 1955 69 From: Dat Sheikh MD Primary Care: Dr. Cynthia Sun DO Status: R EG CLI Referring Dr: Cynthia Sun DO Sex: F C Stress Test Report Date: 09/22/2024 Procedure: Exercise tolerance test/imaging study Indications: Abnormal EKG, palpitations Consent: Per the patient Procedure: The patient exercised on a Osvaldo protocol for 7 minutes and 1 second achieving a peak heart rate of 162 bpm (105% predicted maximal heart rate) with a peak blood pressure 180/82 mmHg and a peak MET capacity of 10.1 METs. The baseline ECG demonstrated normal sinus rhythm. The peak exercise ECG demonstrated sinus tachycardia with 1 to [address] depression in lead III and horizontal to upsloping ST depression in aVF. There is also upsloping ST depression in lead II and the lateral leads. EKG during recovery revealed initially patient's ST changes with trending back to baseline. About 3 minutes into the recovery phase patient started having horizontal to downsloping ST depressions (about 1 mm) in the inferior leads. [There were no cardiac dysrhythmias pretest, during exercise, or recovery]. The functional capacity was considered excellent for age. Patient had chest pain with exercise that eventually resolved with sublingual nitroglycerin. The examination was discontinued secondary to achieving target heart rate. Impression: 1. Technically adequate (percent predicted maximal heart rate greater than 85%) exercise tolerance test 2. Stress test is positive for exercise-induced EKG changes of ischemia 3. The test test is positive for exercise-induced chest pain 4. Functional capacity is excellent for age 5. Nuclear images pending Myocardial perfusion imaging study: Technique: The patient was injected with 11.6 mCi of technetium 99m Cardiolite and subsequently rest SPECT Cardiolite nuclear imaging was obtained in the horizontal long, vertical long, and short axis views. The patient exercised on a Osvaldo protocol. Please see above for details. The patient was injected with 34.1 mCi of technetium 99m Cardiolite and subsequently stress SPECT Cardiolite nuclear imaging was obtained in the horizontal long, vertical long, and short axis views. A gated Cardiolite study at peak stress was obtained. Interpretation: Rest and stress SPECT Cardiolite nuclear imaging status post realignment, normalization, and attenuation correction, demonstrates overall normal myocardial radioisotope uptake. There is no evidence of significant ischemia or infarction. The gated Cardiolite study demonstrates no significant regional wall motion abnormalities. The reported LVEF is greater than 70%. Impression: 1. There is no evidence of significant ischemia or infarction. Please see above for the EKG portion of the test. 2. The gated Cardiolite study reports an LVEF of greater than 70%. This note was generated with TappTimeation software. It may contain incorrect words, spelling, and punctuation that were not noted in checking the note before signing. 09/22/24 1330 Date Dat Sheikh MD CC: Dr. 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1955 Requested By: ANDRE RAMON Order Number: [id number] Reading MD: Florencio Cole Measurements Intervals [place] Rate: 100 P: 51 IL: 168 QRS: 45 QRSD: 91 T: -13 QT: 330 QTc: 426 Interpretive Statements Sinus tachycardia Borderline T abnormalities, inferior leads Electronically Signed On 09-07-2024 22:18:01 EST by Florencio Cole [facility] Free T3on 09-07-2024 Free T3 [Mass/Vol] 2.6 pg/mL Normal 2.18-3.98 [facility] Comment on above: Performed By: #### L 506.0400, L501.9520, L501.4021, L501.89765 #### [facility] [address] [place], [address] Free [id number] By: Cynthia Freeman t on 09-07-2024 Free Triiodothyronine (T3) pg/dL 2.6 pg/mL 2.18-3.98 [facility] L501.4021on 09-07-2024 Trop T High Sen 7 ng/L Normal <=14 [facility] Comment on above: Performed By: #### L 506.0400, L501.9520, L501.4021, L501.28812 #### [facility] [address] [place], [address] No Panel InformationOrdered By: Cynthia Sun on 09-07-2024 Troponin T High Sensitivity 7 ng/L <14 [facility] T4 Free Directon 09-07-2024 T4 FREE DIRECT 1.10 ng/dL Normal 0.76-1.46 [facility] Comment on above: Performed By: #### L 506.0400, L501.9520, L501.4021, L501.73466 #### [facility] [address] [place], [place], [id number] T4 freeOrdered By: Cynthia peñaloza on 09-07-2024 Free T4 [Mass/Vol] 1.10 ng/dL 0.76-1.46 [facility] TSH DL <= 0.005 mIU/L QnOrde red By: Cynthia Fast on 09-07-2024 Thyroid Stimulating Hormone (TSH) 2.420 uIU/mL 0.300-4.20 0 [facility] Thyroid Stim Hormone (TSH)on 09-07-2024 TSH 2.420 uIU/mL Normal 0.300-4.20 0 [facility] Comment on above: Performed By: #### L 506.0400, L501.9520, L501.4021, L501.43936 #### [facility] [address] [place], [place], [id number] CBC AND ELECTRONIC DIFFOrder ed By: Kati Park on 09-06-2024 Basophils (Bld) [#/Vol] 0 10*3/uL 0.0 - 0.2 K/uL [facility] Basophils/100 WBC (Bld) 0.4 % [facility] Eosinophils (Bld) [#/Vol] 0.2 10*3/uL 0. 0 - 0.6 K/uL [facility] Eosinophils/100 WBC (Bld) 2.2 % [facility] Erythrocyte distribution width (RBC) [Ratio] 13.3 % 11.5 - 14.5 % [facility] Hematocrit (Bld) [Volume fraction] 38.2 % 35.3 - 44.9 % [facility] Hemoglobin (Bld) [Mass/Vol] 13.2 g/dL 11.5 - 15.4 g/dL [facility] Immature granulocytes/100 WBC (Bld) 0.3 % [facility] Interpretation and review of laboratory results Abnormal [facility] Lymphocytes (Bld) [#/Vol] 2.9 10*3/uL 0. 6 - 4.6 K/uL [facility] Lymphocytes/100 WBC (Bld) 39.5 % [facility] MCH (RBC) [Entitic mass] 29.1 pg 28. 0 - 33.0 pg [facility] MCHC (RBC) [Mass/Vol] 34.6 g/dL 31.6 - 35.5 g/dL [facility] MCV (RBC) [Entitic vol] 84.1 fL 83.0 - 100.0 fL [facility] Monocytes (Bld) [#/Vol] 0.4 10*3/uL 0.0 - 1.3 K/uL [facility] Monocytes/100 WBC (Bld) 5.9 % [facility] Neutrophils (Bld) [#/Vol] 3.8 10*3/uL 1. 6 - 8.9 K/uL [facility] Nucleated RBC/100 WBC (Bld) [Ratio] 0 % /100 WBC [facility] Platelet mean volume (Bld) [Entitic vol] 9.3 fL Low 9.4 - 12.4 fL [facility] Platelets (Bld) [#/Vol] 233 10*3/uL 140 - 400 K/uL [facility] RBC (Bld) [#/Vol] 4.54 10*6/uL [facility] Segmented neutrophils/100 WBC (Bld) 51.7 % [facility] WBC (Bld) [#/Vol] 7.3 10*3/uL 4.3 - 11.1 K/uL [facility] CBC AND ELECTRONIC DIFFon Basophils (Bld) [#/Vol] 0.0 10*3/uL Normal 0.0-0.2 [facility] Basophils/100 WBC (Bld) 0.4 % Normal [facility] Eosinophils (Bld) [#/Vol] 0.2 10*3/uL Normal 0.0-0.6 [facility] Eosinophils/100 WBC (Bld) 2.2 % Normal [facility] Hematocrit (Bld) [Volume fraction] 38.2 % Normal 35.3-44.9 [facility] Hemoglobin (Bld) [Mass/Vol] 13.2 g/dL Normal 11.5-15.4 [facility] Immature Grans % 0.3 % Normal [facility] Lymphocytes (Bld) [#/Vol] 2.9 10*3/uL Normal 0.6-4.6 [facility] Lymphocytes/100 WBC (Bld) 39.5 % Normal [facility] MCV (RBC) [Entitic vol] 84.1 fL Normal 83.0-100.0 [facility] Mean Cell Hgb 29.1 pg Normal 28.0-33.0 [facility] Mean Cell Hgb Conc 34.6 g/dL Normal 31.6-35.5 [facility] Monocytes (Bld) [#/Vol] 0.4 10*3/uL Normal 0.0-1.3 [facility] Monocytes/100 WBC (Bld) 5.9 % Normal [facility] Nucleated RBC 0 /100 WBC Normal [facility] Platelet mean volume (Bld) [Entitic vol] 9.3 fL Low 9.4-12.4 [facility] Platelets (Bld) [#/Vol] 233 10*3/uL Normal 140-400 [facility] RBC (Bld) [#/Vol] 4.54 10*6/uL Normal 3.82-4.97 [facility] RBC Distribution 13.3 % Normal 11.5-14.5 [facility] Segs + Bands Auto 51.7 % Normal [facility] Segs + Bands,Absolute Auto 3.8 K/uL Normal 1.6-8.9 [facility] WBC (Bld) [#/Vol] 7.3 10*3/uL Normal 4.3-11.1 [facility] COMPREHENSIVE METABOLIC PANE Venkata 09-06-2024 Albumin [Mass/Vol] 4.6 g/dL 3.5 - 5.7 g/dL [facility] Albumin/Globulin [Mass ratio] 2 {ratio} 1.1 - 2.2 [facility] ALP [Catalytic activity/Vol] 80 U/L 34 - 104 U/L [facility] ALT [Catalytic activity/Vol] 19 U/L 7 - 52 U/L [facility] AST [Catalytic activity/Vol] 23 U/L 13 - 39 U/L [facility] Bilirubin [Mass/Vol] 0.4 mg/dL 0.3 - 1 .0 mg/dL [facility] Calcium [Mass/Vol] 9.8 mg/dL 8.6 - 10. 3 mg/dL [facility] Chloride [Moles/Vol] 105 mmol/L 98 - 10 7 mmol/L [facility] CO2 [Moles/Vol] 26 mmol/L 23 - 29 mmol/L [facility] Creatinine [Mass/Vol] 0.62 mg/dL 0.60 - 1.20 mg/dL [facility] eGFR, CKD-EPI, Female - [facility] Comment on above: Reported eGFR is bas ed on the CKD-EPI 2020 equation using creatinine, age, and sex. Globulin (S) [Mass/Vol] 2.3 g/dL Low 2.4 - 3.5 g/dL [facility] Glucose [Mass/Vol] 160 mg/dL High 70 - 105 mg/dL [facility] Interpretation and review of laboratory results Abnormal [facility] Osmolality Calc [Osmolality] 293 280 - 300 [facility] Potassium [Moles/Vol] 3.7 mmol/L 3.5 - 5.1 mmol/L [facility] Protein [Mass/Vol] 6.9 g/dL 6.4 - 8.9 g/dL [facility] Sodium [Moles/Vol] 139 mmol/L 136 - 145 mmol/L [facility] Urea nitrogen [Mass/Vol] 17 mg/dL 8 - 23 mg/dL [facility] Urea nitrogen/Creatinine [Mass ratio] 27 mg/mg High 6 - [facility] Albumin [Mass/Vol] 4.6 g/dL Normal 3.5-5.7 [facility] Albumin/Globulin [Mass ratio] 2.0 {ratio} Normal 1.1-2.2 [facility] ALP [Catalytic activity/Vol] 80 U/L Normal 34-104 [facility] ALT [Catalytic activity/Vol] 19 U/L Normal 7-52 [facility] AST [Catalytic activity/Vol] 23 U/L Normal 13-39 [facility] Bilirubin [Mass/Vol] 0.4 mg/dL Normal 0.3-1.0 [facility] Calcium [Mass/Vol] 9.8 mg/dL Normal 8.6-10.3 [facility] Chloride [Moles/Vol] 105 mmol/L Normal 98-107 [facility] CO2 [Moles/Vol] 26 mmol/L Normal 23-29 [facility] Creatinine [Mass/Vol] 0.62 mg/dL Normal 0.60-1.20 [facility] eGFR, CKD-EPI, Female > Normal >=60 [facility] Comment on above: Result Comment: Repo rted eGFR is based on the CKD-EPI 2020 equation using creatinine, age, and sex. Globulin (S) [Mass/Vol] 2.3 g/dL Low 2.4-3.5 [facility] Glucose [Mass/Vol] 160 mg/dL High 70-105 [facility] Osmolality [Osmolality] 293 mosm/kg Normal 280-300 [facility] Potassium [Moles/Vol] 3.7 mmol/L Normal 3.5-5.1 [facility] Protein [Mass/Vol] 6.9 g/dL Normal 6.4-8.9 [facility] Sodium [Moles/Vol] 139 mmol/L Normal 136-145 [facility] Urea nitrogen [Mass/Vol] 17 mg/dL Normal 8-23 [facility] Urea nitrogen/Creatinine [Mass ratio] 27 mg/mg High - [facility] HIGH SENSITIVITY TROPONIN I - SINGLE ORDERon 09-06-2024 Interpretation and review of laboratory results Normal [facility] Troponin I.cardiac High sensitivity method [Mass/Vol] 3 ng/L NINF - 15 ng/L [facility] Do not make clinical decisions without considering all other risk factors, e.g. HEART score. The [employer] High Sensitivity Troponin I (hsTnI) chemiluminescent immunoassay is used; do not compare results obtained from different assays. [facility] hs-Troponin I 3 ng/L Normal <15 [facility] Comment on above: Order Comment: Do no t make clinical decisions without considering all other risk factors, e.g. HEART score. The [employer] [place] Access High Sensitivity Troponin I (hsTnI) chemiluminescent immunoassay is used; do not compare results obtained from different assays. MAGNESIUMon 09-06-2024 Interpretation and review of laboratory results Normal [facility] Magnesium [Mass/Vol] 2.1 mg/dL 1.6 - 2 .6 mg/dL [facility] Magnesium [Mass/Vol] 2.1 mg/dL Normal 1.6-2.6 [facility] No Panel Informationon 09-06 [facility] Automated lymphocyte countOr dered By: Cynthia BigEvidence on 08-25-2024 Lymphocytes Auto (Unsp spec) [#/Vol] Absolute lymphocyte count 0.80-3.30 [facility] Lymphocytes Auto (Unsp spec) [#/Vol] 1.38 10*3/uL 0.80-3.30 [facility] Basophils Auto (Bld) [#/Vol] Ordered By: Cynthia Fast on 08-25-2024 Basophils (Bld) [#/Vol] Automated blood basophil count (number/volume) 0.00-0.10 [facility] Basophils (Bld) [#/Vol] 0.02 10*3/uL 0.00-0.10 [facility] Basophils/100 WBC Auto (Bld) Ordered By: Cynthia Fast on 08-25-2024 Basophils/100 WBC (Bld) Automated basophil % 0. 0-1.3 [facility] Basophils/100 WBC (Bld) 0.3 % 0.0-1.3 [facility] Blood hemoglobin measurement (mass/volume)Ordered By: Cynthia Fast on 08-25-2024 Hemoglobin (Bld) [Mass/Vol] Blood hemoglobin measurement (mass/volume) 11.9-16.0 [facility] Hemoglobin (Bld) [Mass/Vol] 13.1 g/dL 11.9-16.0 [facility] CBC w/ Auto Diffon 202 5 Basophils Absolute Auto 0.02 10*3/uL Normal 0.00-0.10 [facility] Comment on above: Order Comment: Speci men Type: Unknown Relevant Clinical Information: See Reason(s) for Study Ordering Facility: [facility] Lab-CLIA#[id number] Address: [address] [place] [address] Performed By: #### C BC #### [facility] Lab-CLIA#[id number] CLIA [id number] [address] [place] [address] Edgar Perry, DO,FCAP Basophils/100 WBC (Bld) 0.3 % Normal 0.0-1.3 [facility] Comment on above: Order Comment: Speci men Type: Unknown Relevant Clinical Information: See Reason(s) for Study Ordering Facility: [facility] Lab-CLIA#[id number] Address: [address] [place] [address] Performed By: #### C BC #### [facility] Lab-CLIA#[id number] CLIA [id number] [address] [place] [address] Edgar Perry, DO,FCAP Eosinophils (Bld) [#/Vol] 0.14 10*3/uL Normal 0.00-0.5 0 [facility] Comment on above: Order Comment: Speci men Type: Unknown Relevant Clinical Information: See Reason(s) for Study Ordering Facility: [facility] Lab-CLIA#[id number] Address: [address] [place] [address] Performed By: #### C BC #### [facility] Lab-CLIA#[id number] CLIA [id number] [address] [place] [address] Vincdemetrius Normanaisi, DO,FCAP Eosinophils/100 WBC (Bld) 2.3 % Normal 0.0-5.8 [facility] Comment on above: Order Comment: Speci men Type: Unknown Relevant Clinical Information: See Reason(s) for Study Ordering Facility: [facility] Lab-CLIA#[id number] Address: [address] [place] [address] Performed By: #### C BC #### [facility] Lab-CLIA#[id number] CLIA [id number] [address] [place] [address] Vincent Randaisi, DO,FCAP Erythrocyte distribution width (RBC) [Ratio] 13.5 % Normal 11.6-14.8 [facility] Comment on above: Order Comment: Speci men Type: Unknown Relevant Clinical Information: See Reason(s) for Study Ordering Facility: [facility] Lab-CLIA#[id number] Address: [address] [place] [address] Performed By: #### C BC #### [facility] Lab-CLIA#[id number] CLIA [id number] [address] [place] [address] Vincent Randaisi, DO,FCAP Hematocrit (Bld) [Volume fraction] 39.6 % Normal 35.4-47.9 [facility] Comment on above: Order Comment: Speci men Type: Unknown Relevant Clinical Information: See Reason(s) for Study Ordering Facility: [facility] Lab-CLIA#[id number] Address: [address] [place] [address] Performed By: #### C BC #### [facility] Lab-CLIA#[id number] CLIA [id number] [address] [place] [address] Vincent Randaisi, DO,FCAP Hemoglobin (Bld) [Mass/Vol] 13.1 g/dL Normal 11.9-16.0 [facility] Comment on above: Order Comment: Speci men Type: Unknown Relevant Clinical Information: See Reason(s) for Study Ordering Facility: [facility] Lab-CLIA#[id number] Address: [address] [place] [address] Performed By: #### C BC #### [facility] Lab-CLIA#[id number] CLIA [id number] [address] [place] [address] Edgar Perry DO,FCAP Lymphocytes (Bld) [#/Vol] 1.38 10*3/uL Normal 0.80-3.3 0 [facility] Comment on above: Order Comment: Speci men Type: Unknown Relevant Clinical Information: See Reason(s) for Study Ordering Facility: [facility] Lab-CLIA#[id number] Address: [address] [place] [address] Performed By: #### C BC #### [facility] Lab-CLIA#[id number] CLIA [id number] [address] [place] [address] Edgar Perry DO,FCAP Lymphocytes/100 WBC (Bld) 23.1 % Normal 13.4-45.1 [facility] Comment on above: Order Comment: Speci men Type: Unknown Relevant Clinical Information: See Reason(s) for Study Ordering Facility: [facility] Lab-CLIA#[id number] Address: [address] [place] [address] Performed By: #### C BC #### [facility] Lab-CLIA#[id number] CLIA [id number] [address] [place] [address] Edgar Perry DO,FCAP MCH (RBC) [Entitic mass] 29.0 pg Normal 27.2-33.0 [facility] Comment on above: Order Comment: Speci men Type: Unknown Relevant Clinical Information: See Reason(s) for Study Ordering Facility: [facility] Lab-CLIA#[id number] Address: [address] [place] [address] Performed By: #### C BC #### [facility] Lab-CLIA#[id number] CLIA [id number] [address] [place] [address] Edgar Perry DO,FCAP MCHC (RBC) [Mass/Vol] 33.1 g/dL Normal 31.9-35.1 [facility] Comment on above: Order Comment: Speci men Type: Unknown Relevant Clinical Information: See Reason(s) for Study Ordering Facility: [facility] Lab-CLIA#[id number] Address: [address] [place] [address] Performed By: #### C BC #### [facility] Lab-CLIA#[id number] CLIA [id number] [address] [place] [address] Vincent Esteraisi, DO,FCAP MCV (RBC) [Entitic vol] 87.6 fL Normal 82.1-97.1 [facility] Comment on above: Order Comment: Speci men Type: Unknown Relevant Clinical Information: See Reason(s) for Study Ordering Facility: [facility] Lab-CLIA#[id number] Address: [address] [place] [address] Performed By: #### C BC #### [facility] Lab-CLIA#[id number] CLIA [id number] [address] [place] [address] Vincent Esteraisi, DO,FCAP Monocytes (Bld) [#/Vol] 0.55 10*3/uL Normal 0.30-0.90 [facility] Comment on above: Order Comment: Speci men Type: Unknown Relevant Clinical Information: See Reason(s) for Study Ordering Facility: [facility] Lab-CLIA#[id number] Address: [address] [place] [address] Performed By: #### C BC #### [facility] Lab-CLIA#[id number] CLIA [id number] [address] [place] [address] Vincent Esteraisi, DO,FCAP Monocytes/100 WBC (Bld) 9.2 % Normal 4.0-12.7 [facility] Comment on above: Order Comment: Speci men Type: Unknown Relevant Clinical Information: See Reason(s) for Study Ordering Facility: [facility] Lab-CLIA#[id number] Address: [address] [place] [address] Performed By: #### C BC #### [facility] Lab-CLIA#[id number] CLIA [id number] [address] [place] [address] Edgar Perry, DO,FCAP Neutrophils Absolute Auto 3.85 10*3/uL Normal 1.70-7.0 0 [facility] Comment on above: Order Comment: Speci men Type: Unknown Relevant Clinical Information: See Reason(s) for Study Ordering Facility: [facility] Lab-CLIA#[id number] Address: [address] [place] [address] Performed By: #### C BC #### [facility] Lab-CLIA#[id number] CLIA [id number] [address] [place] [address] Edgar Perry DO,FCAP Neutrophils/100 WBC (Bld) 64.4 % Normal 41.1-75.9 [facility] Comment on above: Order Comment: Speci men Type: Unknown Relevant Clinical Information: See Reason(s) for Study Ordering Facility: [facility] Lab-CLIA#[id number] Address: [address] [place] [address] Performed By: #### C BC #### [facility] Lab-CLIA#[id number] CLIA [id number] [address] [place] [address] Edgar Perry DO,FCAP Platelet mean volume (Bld) [Entitic vol] 10.2 fL Normal 8.6-12.2 [facility] Comment on above: Order Comment: Speci men Type: Unknown Relevant Clinical Information: See Reason(s) for Study Ordering Facility: [facility] Lab-CLIA#[id number] Address: [address] [place] [address] Performed By: #### C BC #### [facility] Lab-CLIA#[id number] CLIA [id number] [address] [place] [address] Edgar Perry DO,FCAP Platelets (Bld) [#/Vol] 210 10*3/uL Normal 133-425 [facility] Comment on above: Order Comment: Speci men Type: Unknown Relevant Clinical Information: See Reason(s) for Study Ordering Facility: [facility] Lab-CLIA#[id number] Address: [address] [place] [address] Performed By: #### C BC #### [facility] Lab-CLIA#[id number] CLIA [id number] [address] [place] [address] Edgar Perry, DO,FCAP RBC (Bld) [#/Vol] 4.52 10*6/uL Normal 3.40-5.40 [facility] Comment on above: Order Comment: Speci men Type: Unknown Relevant Clinical Information: See Reason(s) for Study Ordering Facility: [facility] Lab-CLIA#[id number] Address: [address] [place] [address] Performed By: #### C BC #### [facility] Lab-CLIA#[id number] CLIA [id number] [address] [place] [address] Edgar Perry, DO,FCAP WBC (Bld) [#/Vol] 6.0 10*3/uL Normal 4.5-11.0 [facility] Comment on above: Order Comment: Speci men Type: Unknown Relevant Clinical Information: See Reason(s) for Study Ordering Facility: [facility] Lab-CLIA#[id number] Address: [address] [place] [address] Performed By: #### C BC #### [facility] Lab-CLIA#[id number] CLIA [id number] [address] [place] [address] Edagr Perry, DO,FCAP Cholesterol in LDL Calc [Mas s/Vol]Ordered By: Cynthia Sun on 08-25-2024 Cholesterol in LDL [Mass/Vol] Calculated serum or plasma cholesterol in low density lipoprotein (LDL) determination <100 [facility] Cholesterol in LDL [Mass/Vol] 101 mg/dL <100 [facility] Comprehensive Metabolic Pane venkata 08-25-2024 Albumin [Mass/Vol] 4.1 g/dL Normal 3.4-5.0 [facility] Comment on above: Order Comment: Speci men Type: Unknown Relevant Clinical Information: See Reason(s) for Study Ordering Facility: [facility] Lab-CLIA#[id number] Address: [address] [place] [address] Performed By: #### C MP, LIPID #### [facility] Lab-CLIA#[id number] CLIA [id number] [address] [place] [address] Vincent Randaisi, DO,FCAP ALP [Catalytic activity/Vol] 78 U/L Normal 46-116 [facility] Comment on above: Order Comment: Speci men Type: Unknown Relevant Clinical Information: See Reason(s) for Study Ordering Facility: [facility] Lab-CLIA#[id number] Address: [address] [place] [address] Performed By: #### C MP, LIPID #### [facility] Lab-CLIA#[id number] CLIA [id number] [address] [place] [address] Vincdemetrius Randaisi, DO,FCAP ALT [Catalytic activity/Vol] 18 U/L Normal 10-49 [facility] Comment on above: Order Comment: Speci men Type: Unknown Relevant Clinical Information: See Reason(s) for Study Ordering Facility: [facility] Lab-CLIA#[id number] Address: [address] [place] [address] Performed By: #### C MP, LIPID #### [facility] Lab-CLIA#[id number] CLIA [id number] [address] [place] [address] Vincent Randaisi, DO,FCAP Anion gap [Moles/Vol] 10 mmol/L Normal 7-17 [facility] Comment on above: Order Comment: Speci men Type: Unknown Relevant Clinical Information: See Reason(s) for Study Ordering Facility: [facility] Lab-CLIA#[id number] Address: [address] [place] [address] Performed By: #### C MP, LIPID #### [facility] Lab-CLIA#[id number] CLIA [id number] [address] [place] [address] Vincent Randaisi, DO,FCAP AST [Catalytic activity/Vol] 25 U/L Normal <34 [facility] Comment on above: Order Comment: Speci men Type: Unknown Relevant Clinical Information: See Reason(s) for Study Ordering Facility: [facility] Lab-CLIA#[id number] Address: [address] [place] [address] Performed By: #### C MP, LIPID #### [facility] Lab-CLIA#[id number] CLIA [id number] [address] [place] [address] Vincent Randaisi, DO,FCAP Bilirubin [Mass/Vol] 0.6 mg/dL Normal 0.2-1.1 [facility] Comment on above: Order Comment: Speci men Type: Unknown Relevant Clinical Information: See Reason(s) for Study Ordering Facility: [facility] Lab-CLIA#[id number] Address: [address] [place] [address] Performed By: #### C MP, LIPID #### [facility] Lab-CLIA#[id number] CLIA [id number] [address] [place] [address] Edgar Perry, DO,FCAP Calcium [Mass/Vol] 9.6 mg/dL Normal 8.3-10.6 [facility] Comment on above: Order Comment: Speci men Type: Unknown Relevant Clinical Information: See Reason(s) for Study Ordering Facility: [facility] Lab-CLIA#[id number] Address: [address] [place] [address] Performed By: #### C MP, LIPID #### [facility] Lab-CLIA#[id number] CLIA [id number] [address] [place] [address] Vincent Randaisi, DO,FCAP Chloride [Moles/Vol] 107 mmol/L Normal 98-107 [facility] Comment on above: Order Comment: Speci men Type: Unknown Relevant Clinical Information: See Reason(s) for Study Ordering Facility: [facility] Lab-CLIA#[id number] Address: [address] [place] [address] Performed By: #### C MP, LIPID #### [facility] Lab-CLIA#[id number] CLIA [id number] [address] [place] [address] Vincdemetrius Greysi, DO,FCAP CO2 [Moles/Vol] 28 mmol/L Normal 20-31 [facility] Comment on above: Order Comment: Speci men Type: Unknown Relevant Clinical Information: See Reason(s) for Study Ordering Facility: [facility] Lab-CLIA#[id number] Address: [address] [place] [address] Performed By: #### C MP, LIPID #### [facility] Lab-CLIA#[id number] CLIA [id number] [address] [place] [address] Vincdemetrius Perry, DO,FCAP Creatinine [Mass/Vol] 0.601 mg/dL Normal 0.55-1.02 [facility] [place] Comment on above: Order Comment: Speci men Type: Unknown Relevant Clinical Information: See Reason(s) for Study Ordering Facility: [facility] Lab-CLIA#[id number] Address: [address] [place] [address] Performed By: #### C MP, LIPID #### [facility] Lab-CLIA#[id number] CLIA [id number] [address] [place] [address] Vincdemetrius Normanaisi, DO,FCAP GFR/1.73 sq M.predicted MDRD (S/P/Bld) [Vol rate/Area] 106 mL/min/{1.73_m2} Normal [facility] Comment on above: Order Comment: Speci men Type: Unknown Relevant Clinical Information: See Reason(s) for Study Ordering Facility: [facility] Lab-CLIA#[id number] Address: [address] [place] [address] Result Comment: K/DO QI Guideline: Stage 1 >/=90 mL/min/1.73m2 - Not Consistent with CKD Stage 2 60-89 mL/min/1.73m2 - Consistent with Mild CKD Stage 3 30-59 mL/min/1.73m2 - Consistent with Moderate CKD Stage 4 15-29 mL/min/1.73m2 - Consistent with Severe CKD Stage 5 <15 mL/min/1.73m2 - Consistent with Kidney Failure Estimated Glomerular Filtration Rate (eGFR) is a calculated value utilizing the MDRD equation and provides an estimate of renal function. The equation assumes a steady state and should not be used for patients that meet any of the following criteria: - Are younger than 18 or older than 70 - Have rapidly fluctuating kidney function - Are - Have serious comorbid conditions - Have extremes of body size - Have extremes of muscle mass - Have extremes of nutritional status - Are non- or non- - Have normal kidney function Performed By: #### C MP, LIPID #### [facility] Lab-CLIA#[id number] CLIA [id number] [address] [place] [address] Edgar Perry DO,FCAP Glucose [Mass/Vol] 98 mg/dL Normal 74-106 [facility] Comment on above: Order Comment: Speci men Type: Unknown Relevant Clinical Information: See Reason(s) for Study Ordering Facility: [facility] Lab-CLIA#[id number] Address: [address] [place] [address] Performed By: #### C MP, LIPID #### [facility] Lab-CLIA#[id number] CLIA [id number] [address] [place] [address] Edgar Perry DO,FCAP Potassium [Moles/Vol] 4.1 mmol/L Normal 3.5-5.1 [facility] Comment on above: Order Comment: Speci men Type: Unknown Relevant Clinical Information: See Reason(s) for Study Ordering Facility: [facility] Lab-CLIA#[id number] Address: [address] [place] [address] Performed By: #### C MP, LIPID #### [facility] Lab-CLIA#[id number] CLIA [id number] [address] [place] [address] Vincent Randaisi, DO,FCAP Protein [Mass/Vol] 6.8 g/dL Normal 5.7-8.2 [facility] Comment on above: Order Comment: Speci men Type: Unknown Relevant Clinical Information: See Reason(s) for Study Ordering Facility: [facility] Lab-CLIA#[id number] Address: [address] [place] [address] Performed By: #### C MP, LIPID #### [facility] Lab-CLIA#[id number] CLIA [id number] [address] [place] [address] Edgar Perry, DO,FCAP Sodium [Moles/Vol] 141 mmol/L Normal 136-145 [facility] Comment on above: Order Comment: Speci men Type: Unknown Relevant Clinical Information: See Reason(s) for Study Ordering Facility: [facility] Lab-CLIA#[id number] Address: [address] [place] [address] Performed By: #### C MP, LIPID #### [facility] Lab-CLIA#[id number] CLIA [id number] [address] [place] [address] Edgar Perry DO,FCAP Urea nitrogen [Mass/Vol] 11 mg/dL Normal 9-23 [facility] Comment on above: Order Comment: Speci men Type: Unknown Relevant Clinical Information: See Reason(s) for Study Ordering Facility: [facility] Lab-CLIA#[id number] Address: [address] [place] [address] Performed By: #### C MP, LIPID #### [facility] Lab-CLIA#[id number] CLIA [id number] [address] [place] [address] Vincdemetrius Perry, DO,FCAP Eosinophils Auto (Bld) [#/Vo l]Ordered By: Cnythia uSn on 08-25-2024 Eosinophils (Bld) [#/Vol] Automated bloo d eosinophil count (number/volume) 0.00-0.50 [facility] Eosinophils (Bld) [#/Vol] 0.14 10*3/uL 0.00-0.5 0 [facility] Eosinophils/100 WBC Auto (Bl d)Ordered By: Cynthia Fast on 08-25-2024 Eosinophils/100 WBC (Bld) Automated eosi nophil % 0.0-5.8 [facility] Eosinophils/100 WBC (Bld) 2.3 % 0.0-5.8 [facility] Erythrocyte distribution wid th Auto (RBC) [Ratio]Ordered By: Cynthia Fast on 08-25-2024 Erythrocyte distribution width (RBC) [Ratio] Automated erythrocyte distribution width percentage 11.6-14.8 [facility] Erythrocyte distribution width (RBC) [Ratio] 13.5 % 11.6-14.8 [facility] Glomerular filtration rate ( GFR) estimation/1.73 sq m using creatinine measurement wiOrdered By: Cynthia Fast on 08-25-2024 GFR/1.73 sq M.predicted CKD-EPI (S/P/Bld) [Vol rate/Area] Glomerular filtration rate (GFR) estimation/1.73 sq m using creatinine measurement wi >60 [facility] Comment on above: K/DOQI Guideline:Sta ge 1 >/=90 mL/min/1.73m2 - Not Consistent with CKDStage 2 60-89 mL/min/1.73m2 - Consistent with Mild CKDStage 3 30-59 mL/min/1.73m2 - Consistent with Moderate CKDStage 4 15-29 mL/min/1.73m2 - Consistent with Severe CKDStage 5 <15 mL/min/1.73m2 - Consistent with Kidney FailureEstimated Glomerular Filtration Rate (eGFR) is a calculated value utilizing the MDRD equation and provides an estimate of renal function. The equation assumes a steady state and should not be used for patients that meet any of the following criteria:- Are younger than 18 or older than 70- Have rapidly fluctuating kidney function- Are - Have serious comorbid conditions- Have extremes of body size- Have extremes of muscle mass - Have extremes of nutritional status- Are non- or non-- Have normal kidney function GFR/1.73 sq M.predicted CKD-EPI (S/P/Bld) [Vol rate/Area] 106 mL/min >60 [facility] Comment on above: K/DOQI Guideline:Sta ge 1 >/=90 mL/min/1.73m2 - Not Consistent with CKDStage 2 60-89 mL/min/1.73m2 - Consistent with Mild CKDStage 3 30-59 mL/min/1.73m2 - Consistent with Moderate CKDStage 4 15-29 mL/min/1.73m2 - Consistent with Severe CKDStage 5 <15 mL/min/1.73m2 - Consistent with Kidney FailureEstimated Glomerular Filtration Rate (eGFR) is a calculated value utilizing the MDRD equation and provides an estimate of renal function. The equation assumes a steady state and should not be used for patients that meet any of the following criteria:- Are younger than 18 or older than 70- Have rapidly fluctuating kidney function- Are - Have serious comorbid conditions- Have extremes of body size- Have extremes of muscle mass - Have extremes of nutritional status- Are non- or non-- Have normal kidney function Hematocrit Auto (Bld) [Volum e fraction]Ordered By: Cynthia Sun on 08-25-2024 Hematocrit (Bld) [Volume fraction] Automated blood hematocrit (percentage) 35.4-47.9 [facility] Hematocrit (Bld) [Volume fraction] 39.6 % 35.4-47.9 [facility] Hemoglobin A1Con 08-25-2024 HbA1c (Bld) [Mass fraction] 5.5 % Normal <5.7 [facility] Comment on above: Order Comment: Speci men Type: Unknown Relevant Clinical Information: See Reason(s) for Study Ordering Facility: [facility] Lab-CLIA#[id number] Address: [address] [place] [address] Result Comment: Expe cted Values Suggested Diagnosis Diabetic >=6.5 (%) Prediabetes 5.7-6.4 (%) Normal <5.7 (%) Performed By: #### H GBA1C #### [facility] Lab-CLIA#[id number] CLIA [id number] [address] [place] [address] Edgar Perry DO, FCAP Hemoglobin A1c percentageOrd ered By: Cynthia Sun on 08-25-2024 HbA1c (Bld) [Mass fraction] Hemoglobin A1c percentage 0-5.6 [facility] Comment on above: Expected ValuesSugge sted Diagnosis Diabetic >=6.5 (%)Prediabetes 5.7-6.4 (%)Normal <5.7 (%) HbA1c (Bld) [Mass fraction] 5.5 % 0-5.6 [facility] Comment on above: Expected ValuesSugge sted Diagnosis Diabetic >=6.5 (%)Prediabetes 5.7-6.4 (%)Normal <5.7 (%) Laboratory - Chemistry and C hemistry - challengeOrdered By: Cynthia Sun on 08-25-2024 Anion gap [Moles/Vol] 10 mmol/L 7- [facility] Lipid Panelon 08-25-2024 Cholesterol [Mass/Vol] 173 mg/dL Normal <200 [facility] [place] Comment on above: Order Comment: Speci men Type: Unknown Relevant Clinical Information: See Reason(s) for Study Ordering Facility: [facility] Lab-CLIA#[id number] Address: [address] [place] [address] Performed By: #### C MP, LIPID #### [facility] Lab-CLIA#[id number] CLIA [id number] [address] [place] [address] Edgar Perry DO,FCAP Cholesterol in HDL [Mass/Vol] 61 mg/dL High 40-60 [facility] Comment on above: Order Comment: Speci men Type: Unknown Relevant Clinical Information: See Reason(s) for Study Ordering Facility: [facility] Lab-CLIA#[id number] Address: [address] [place] [address] Performed By: #### C MP, LIPID #### [facility] Lab-CLIA#[id number] CLIA [id number] [address] [place] [address] Edgar Perry DO,FCAP Cholesterol in LDL [Mass/Vol] 101 mg/dL High <100 [facility] Comment on above: Order Comment: Speci men Type: Unknown Relevant Clinical Information: See Reason(s) for Study Ordering Facility: [facility] Lab-CLIA#[id number] Address: [address] [place] [address] Performed By: #### C MP, LIPID #### [facility] Lab-CLIA#[id number] CLIA [id number] [address] [place] [address] Edgar Perry DOFCAP Triglyceride [Mass/Vol] 54 mg/dL Normal <149 [facility] Comment on above: Order Comment: Speci men Type: Unknown Relevant Clinical Information: See Reason(s) for Study Ordering Facility: [facility] Lab-CLIA#[id number] Address: [address] [place] [address] Performed By: #### C MP, LIPID #### [facility] Lab-CLIA#[id number] CLIA [id number] [address] [place] [address] Edgar Perry DO,FCAP Lymphocytes/100 WBC Auto (Bl d)Ordered By: Cynthia Fast on 08-25-2024 Lymphocytes/100 WBC (Bld) Automated bloo d lymphocyte count as percentage of total leukocytes 13.4-45.1 [facility] Lymphocytes/100 WBC (Bld) 23.1 % 13.4-45.1 [facility] MCH Auto (RBC) [Entitic mass ]Ordered By: Cynthia Fast on 08-25-2024 MCH (RBC) [Entitic mass] Automated eryth rocyte mean corpuscular hemoglobin (MCH) measurement (mass/erythrocyte 27.2-33.0 [facility] MCH (RBC) [Entitic mass] 29.0 pg 27.2-33.0 [facility] MCHC Auto (RBC) [Mass/Vol]Or dered By: Cynthia Fast on 08-25-2024 MCHC (RBC) [Mass/Vol] Automated erythroc yte mean corpuscular hemoglobin concentration measurement (mass/vol 31.9-35.1 [facility] MCHC (RBC) [Mass/Vol] 33.1 g/dL 31.9-35.1 [facility] MCV (mean corpuscular volume ) determinationOrdered By: Cynthia Fast on 08-25-2024 MCV (RBC) [Entitic vol] MCV (mean corpus cular volume) determination 82.1-97.1 [facility] MCV (RBC) [Entitic vol] 87.6 fL 82.1-97.1 [facility] Monocytes Auto (Bld) [#/Vol] Ordered By: Cynthia Fast on 08-25-2024 Monocytes (Bld) [#/Vol] Automated blood monocyte count 0.30-0.90 [facility] Monocytes (Bld) [#/Vol] 0.55 10*3/uL 0.30-0.90 [facility] Monocytes/100 WBC Auto (Bld) Ordered By: Cynthia Fast on 08-25-2024 Monocytes/100 WBC (Bld) Automated monocyte % 4. 0-12.7 [facility] Monocytes/100 WBC (Bld) 9.2 % 4.0-12.7 [facility] Neutrophils Auto (Bld) [#/Vo l]Ordered By: Cynthia Fast on 08-25-2024 Neutrophils (Bld) [#/Vol] Automated bloo d neutrophil count (number/volume) 1.70-7.00 [facility] Neutrophils (Bld) [#/Vol] 3.85 10*3/uL 1.70-7.0 0 [facility] Neutrophils/100 WBC Auto (Bl d)Ordered By: Cynthia Fast on 08-25-2024 Neutrophils/100 WBC (Bld) Automated neut rophil % 41.1-75.9 [facility] Neutrophils/100 WBC (Bld) 64.4 % 41.1-75.9 [facility] No Panel InformationOrdered By: Cynthia Fast on 08-25-2024 Pharmacy Creatinine Clearance (Chem Not Reportable [facility] Platelet mean volume Auto (B ld) [Entitic vol]Ordered By: Cynthia Fast on 08-25-2024 Platelet mean volume (Bld) [Entitic vol] Automated blood platelet mean volume measurement 8.6-12.2 [facility] Platelet mean volume (Bld) [Entitic vol] 10.2 fL 8.6-12.2 [facility] Platelets Auto (Bld) [#/Vol] Ordered By: Cynthia on 08-25-2024 Platelets (Bld) [#/Vol] Automated blood platelet count (number/volume) 133-425 [facility] Platelets (Bld) [#/Vol] 210 10*3/uL 133-425 [facility] RBC Auto (Bld) [#/Vol]Ordere d By: on 08-25-2024 RBC (Bld) [#/Vol] Automated blood erythrocyte count (number/volume) 3.40-5.40 [facility] RBC (Bld) [#/Vol] 4.52 10*6/uL 3.40-5.40 [facility] Serum or plasma alanine rivas otransferase measurement with P-5'-P (enzymatic activity/Ordered By: on 08-25-2024 ALT With P-5'-P [Catalytic activity/Vol] Serum or plasma alanine aminotransferase measurement with P-5'-P (enzymatic activity/ 1049 [facility] ALT With P-5'-P [Catalytic activity/Vol] 18 U/L 10-[address] [facility] Serum or plasma albumin jorge urement by bromocresol purple (BCP) dye binding method (mOrdered By: on 08-25-2024 Albumin BCP dye [Mass/Vol] Serum or plasma albumin measurement by bromocresol purple (BCP) dye binding method (m 3.4-5.0 [facility] Albumin BCP dye [Mass/Vol] 4.1 g/dL 3.4-5.0 [facility] Serum or plasma alkaline belinda sphatase measurement (enzymatic activity/volume)Ordered By: on 08-25-2024 ALP [Catalytic activity/Vol] Serum or plasma alkaline phosphatase measurement (enzymatic activity/volume) 46-116 [facility] ALP [Catalytic activity/Vol] 78 U/L 46-116 [facility] Serum or plasma aspartate am inotransferase measurement with P-5'-P (enzymatic activitOrdered By: Cynthia on 08-25-2024 AST With P-5'-P [Catalytic activity/Vol] Serum or plasma aspartate aminotransferase measurement with P-5'-P (enzymatic activit 0-33 [facility] AST With P-5'-P [Catalytic activity/Vol] 25 U/L 0-33 [facility] morgan [facility] Serum or plasma calcium jorge urement (mass/volume)Ordered By: Cynthia Fast on 08-25-2024 Calcium [Mass/Vol] Serum or plasma calcium measurement (mass/volume) 8.3-10.6 [facility] Calcium [Mass/Vol] 9.6 mg/dL 8.3-10.6 [facility] Serum or plasma chloride karen surement (moles/volume)Ordered By: Cynthia Fast on 08-25-2024 Chloride [Moles/Vol] Serum or plasma chloride measurement (moles/volume) 98-107 [facility] Chloride [Moles/Vol] 107 mmol/L 98-107 [facility] Serum or plasma cholesterol measurement (mass/volume)Ordered By: Cynthia Fast on 08-25-2024 Cholesterol [Mass/Vol] Serum or plasma cholesterol measurement (mass/volume) 0-199 [facility] Cholesterol [Mass/Vol] 173 mg/dL 0-199 [facility] Serum or plasma creatinine m easurement (mass/volume)Ordered By: Cynthia Fast on 08-25-2024 Creatinine [Mass/Vol] Serum or plasma creatinine measurement (mass/volume) 0.55-1.02 [facility] Creatinine [Mass/Vol] 0.601 mg/dL 0.55-1.02 [facility] Serum or plasma glucose jorge urement (mass/volume)Ordered By: Cynthia Fast on 08-25-2024 Glucose [Mass/Vol] Serum or plasma glucose measurement (mass/volume) 74-106 [facility] Glucose [Mass/Vol] 98 mg/dL 74-106 [facility] Serum or plasma high density lipoprotein (HDL) cholesterol measurement (mass/volume)Ordered By: Cynthia Fast on 08-25-2024 Cholesterol in HDL [Mass/Vol] Serum or plasma high density lipoprotein (HDL) cholesterol measurement 40-60 [facility] Cholesterol in HDL [Mass/Vol] 61 mg/dL 40-60 [facility] Serum or plasma potassium me asurement (moles/volume)Ordered By: Cynthia Fast on 08-25-2024 Potassium [Moles/Vol] Serum or plasma potassium measurement (moles/volume) 3.5-5.1 [facility] Potassium [Moles/Vol] 4.1 mmol/L 3.5-5.1 [facility] Serum or plasma protein jorge urement (mass/volume)Ordered By: Cynthia Fast on 08-25-2024 Protein [Mass/Vol] Serum total protein measurement (mass/volume) 5.7-8.2 [facility] Protein [Mass/Vol] 6.8 g/dL 5.7-8.2 [facility] Serum or plasma sodium measu rement (moles/volume)Ordered By: Cynthia Fast on 08-25-2024 Sodium [Moles/Vol] Serum or plasma sodium measurement (moles/volume) 136-145 [facility] Sodium [Moles/Vol] 141 mmol/L 136-145 [facility] Serum or plasma total biliru bin measurement (mass/volume)Ordered By: Cynthia Fast on 08-25-2024 Bilirubin [Mass/Vol] Serum or plasma tot al bilirubin measurement (mass/volume) 0.2-1.1 [facility] Bilirubin [Mass/Vol] 0.6 mg/dL 0.2-1.1 [facility] Serum or plasma total carbon dioxide measurement (moles/volume)Ordered By: Cynthia Fast on 08-25-2024 CO2 [Moles/Vol] Serum or plasma tota l carbon dioxide measurement (moles/volume) [facility] CO2 [Moles/Vol] 28 mmol/L [facility] Serum or plasma triglyceride measurement (mass/volume)Ordered By: Cynthia Fast on 08-25-2024 Triglyceride [Mass/Vol] Serum or plasma triglyceride measurement (mass/volume) <149 [facility] Triglyceride [Mass/Vol] 54 mg/dL <149 [facility] Serum or plasma urea nitroge n measurement (mass/volume)Ordered By: Cynthia Fast on 08-25-2024 Urea nitrogen [Mass/Vol] Serum or plasma urea nitrogen measurement (mass/volume) 04-04 [facility] Urea nitrogen [Mass/Vol] 11 mg/dL 04-04 [facility] Urine Microalbuminon 025 Creatinine Urine Random 48.80 mg/dL Normal [facility] Comment on above: Order Comment: Speci men Type: Unknown Relevant Clinical Information: See Reason(s) for Study Ordering Facility: [facility] Lab-CLIA#[id number] Address: [address] [place] [address] Performed By: #### U MALBCRE #### [facility] Lab-CLIA#[id number] CLIA [id number] [address] [place] [address] Vincdemetrius Greysi, DO,FCAP Microalbumin Creatinine Ratio Urine Normal 0-29.9 [facility] Comment on above: Order Comment: Speci men Type: Unknown Relevant Clinical Information: See Reason(s) for Study Ordering Facility: [facility] Lab-CLIA#[id number] Address: [address] [place] [address] Result Comment: Unab le to perform Ratio when creatinine is < 3 or microalbumin is <3 Performed By: #### U MALBCRE #### [facility] Lab-CLIA#[id number] CLIA [id number] [address] [place] [address] Vincent Randaisi, DO,FCAP Microalbumin Urine Random <3.0 Normal [facility] Comment on above: Order Comment: Speci men Type: Unknown Relevant Clinical Information: See Reason(s) for Study Ordering Facility: [facility] Lab-CLIA#[id number] Address: [address] [place] [address] Performed By: #### U MALBCRE #### [facility] Lab-CLIA#[id number] CLIA [id number] [address] [place] [address] Vincent Randaisi, DO,FCAP Urine albumin/creatinine mas s ratio for detection of microalbuminuriaOrdered By: Cynthia Sun on 08-25-2024 Albumin/Creatinine DL <= 20 mg/L (U) [Mass ratio] Urine albumin/creatinine mass ratio for detection of microalbuminuria 0-29.9 [facility] Comment on above: Unable to perform Ra morenita when creatinine is < 3 or microalbumin is <3 Albumin/Creatinine DL <= 20 mg/L (U) [Mass ratio] See comment 0-29.9 Vadim mora [facility] Comment on above: Unable to perform Ra morenita when creatinine is < 3 or microalbumin is <3 Urine creatinine measurement (mass/volume)Ordered By: Cynthia Sun on 08-25-2024 Creatinine (U) [Mass/Vol] Urine creatini ne measurement (mass/volume) [facility] Creatinine (U) [Mass/Vol] 48.80 mg/dL [facility] Urine protein measurement (m ass/volume)Ordered By: Cynthia Sun on 08-25-2024 Protein (U) [Mass/Vol] Urine protein measurement (mass/volume) [facility] Protein (U) [Mass/Vol] <3.0 mg/L [facility] WBC Auto (Bld) [#/Vol]Ordere d By: Cynthia Sun on 08-25-2024 WBC (Bld) [#/Vol] Automated blood leukocyte count (number/volume) 4.5-11.0 [facility] WBC (Bld) [#/Vol] 6.0 10*3/uL 4.5-11.0 Dre snell [facility] CREAT/GFRon 04-26-2024 Creatinine [Mass/Vol] 0.55 mg/dL Low 0.60 - 1.20 mg/dL [facility] [employer] EGFR, POC - [facility] [place] Comment on above: eGFR= Estimated Glom erular Filtration Rate reported as mL/min/1.73 square meters Chronic Kidney Disease: < 60; Kidney failure: < 15 Interpretation and review of laboratory results Abnormal [facility] Creatinine [Mass/Vol] 0.55 mg/dL Low 0.60-1.20 [facility] EGFR, POC > Normal >60 [facility] Comment on above: Result Comment: eGFR = Estimated Glomerular Filtration Rate reported as mL/min/1.73 square meters Chronic Kidney Disease: < 60; Kidney failure: < 15 CT ABDOMEN WITH IV CONTRAST ONLYon 04-26-2024 CT ABDOMEN WITH IV CONTRAST ONLY EXAMINATION: CT ABDOMEN WITH CONTRAST 04/26/2024 9:56 am TECHNIQUE: CT of the abdomen was performed with the administration of intravenous contrast. Multiplanar reformatted images are provided for review. Dose modulation, iterative reconstruction, and/or weight based adjustment of the mA/kV was utilized to reduce the radiation dose to as low as reasonably achievable. COMPARISON: None. HISTORY: ORDERING SYSTEM PROVIDED HISTORY: TECHNOLOGIST PROVIDED HISTORY: Reason for Exam: RUQ abd pain; COMMENT: Preferred Location:[place]; FINDINGS: Lower Chest: The lung bases are clear. Organs: The liver, spleen, gallbladder, pancreas and adrenal glands appear unremarkable. There is a small low-attenuation nodule in the right adrenal gland measuring 1.2 cm with Hounsfield units averaging 69. There is symmetric enhancement of the kidneys. No hydronephrosis is seen. GI/Bowel: The bowel loops are not dilated. Peritoneum/Retroperit oneum: The abdominal aorta is not aneurysmal. There are shotty mesenteric and retroperitoneal lymph nodes but no lymphadenopathy is seen. Bones/Soft Tissues: No acute bony abnormalities are noted. IMPRESSION: 1. No acute intra-abdominal abnormality. 2. 1.2 cm low-attenuation nodule in the right adrenal gland. This is nonspecific but may represent an adenoma. Recommend follow-up adrenal washout CT in 12 months. RECOMMENDATIONS: Right adrenal mass measuring 1.2 cm, probable benign adenoma. Recommend follow-up adrenal washout CT in 1 year. If stable for = 1 year, no further follow-up imaging. JACR 2016; 14(8):6851-44, JCAT 2015; 40(2):194-200, Urol J spring; 3(2):71-4. D/ / MD Sae Villarreal MD Interpreting Provider: Sae Patrick MD Normal [facility] CT Abdomen limited W contras t Leroy 04-26-2024 IMPRESSION: 1. No acute intra-abdominal abnormality. 2. 1.2 cm low-attenuation nodule in the right adrenal gland. This is nonspecific but may represent an adenoma. Recommend follow-up adrenal washout CT in 12 months. RECOMMENDATIONS: Right adrenal mass measuring 1.2 cm, probable benign adenoma. Recommend follow-up adrenal washout CT in 1 year. If stable for = 1 year, no further follow-up imaging. JACR 2016; 14(8):6195-44, JCAT 2015; 40(2):194-200, Urol J spring; 3(2):71-4. D/ / MD Sae Villarreal MD Interpreting Provider: Sae Patrick MD OLOGY EXAMINATION: CT ABDOMEN WITH CONTRAST 04/26/2024 9:56 am TECHNIQUE: CT of the abdomen was performed with the administration of intravenous contrast. Multiplanar reformatted images are provided for review. Dose modulation, iterative reconstruction, and/or weight based adjustment of the mA/kV was utilized to reduce the radiation dose to as low as reasonably achievable. COMPARISON: None. HISTORY: ORDERING SYSTEM PROVIDED HISTORY: TECHNOLOGIST PROVIDED HISTORY: Reason for Exam: RUQ abd pain; COMMENT: Preferred Location:[place]; FINDINGS: Lower Chest: The lung bases are clear. Organs: The liver, spleen, gallbladder, pancreas and adrenal glands appear unremarkable. There is a small low-attenuation nodule in the right adrenal gland measuring 1.2 cm with Hounsfield units averaging 69. There is symmetric enhancement of the kidneys. No hydronephrosis is seen. GI/Bowel: The bowel loops are not dilated. Peritoneum/Retroperit oneum: The abdominal aorta is not aneurysmal. There are shotty mesenteric and retroperitoneal lymph nodes but no lymphadenopathy is seen. Bones/Soft Tissues: No acute bony abnormalities are noted. RADIOLOGY Sae Patrick MD - 04/26/2024 EXAMINATION: CT ABDOMEN WITH CONTRAST 04/26/2024 9:56 am TECHNIQUE: CT of the abdomen was performed with the administration of intravenous contrast. Multiplanar reformatted images are provided for review. Dose modulation, iterative reconstruction, and/or weight based adjustment of the mA/kV was utilized to reduce the radiation dose to as low as reasonably achievable. COMPARISON: None. HISTORY: ORDERING SYSTEM PROVIDED HISTORY: TECHNOLOGIST PROVIDED HISTORY: Reason for Exam: RUQ abd pain; COMMENT: Preferred Location:[place]; FINDINGS: Lower Chest: The lung bases are clear. Organs: The liver, spleen, gallbladder, pancreas and adrenal glands appear unremarkable. There is a small low-attenuation nodule in the right adrenal gland measuring 1.2 cm with Hounsfield units averaging 69. There is symmetric enhancement of the kidneys. No hydronephrosis is seen. GI/Bowel: The bowel loops are not dilated. Peritoneum/Retroperit oneum: The abdominal aorta is not aneurysmal. There are shotty mesenteric and retroperitoneal lymph nodes but no lymphadenopathy is seen. Bones/Soft Tissues: No acute bony abnormalities are noted. IMPRESSION IMPRESSION: 1. No acute intra-abdominal abnormality. 2. 1.2 cm low-attenuation nodule in the right adrenal gland. This is nonspecific but may represent an adenoma. Recommend follow-up adrenal washout CT in 12 months. RECOMMENDATIONS: Right adrenal mass measuring 1.2 cm, probable benign adenoma. Recommend follow-up adrenal washout CT in 1 year. If stable for = 1 year, no further follow-up imaging. JACR 2017 Feb; 14(8):1038-44, JCAT 2016 Sep-Oct; 40(2):194-200, Urol J spring; 3(2):71-4. D/ / MD Sae Villarreal MD Interpreting Provider: Sae Patrick MD [facility] [place] Radiology Study observation (narrative) [facility] CT Abdomen limited W contras t IVOrdered By: Sae Patrick on 04-26-2024 [facility] [place] Work Phone: Hepatobilliary Img w/Pharm I nton 03-11-2024 Hepatobilliary Img w/Pharm Int [facility] Imaging Services [address] [place] [address] [id number] Hepatobilliary Img w/Pharm Int MR#: [id number] Acct: [id number] Name: GAURI GOLDMAN RENETTA Rep #: [id number] : 1955 F 68 From: Franco [place] PCP: Dr. Cynthia Sun DO Status: REG CLI Study: Hepatobilliary Img w/Pharm Int Date of Exam: 0 03/11/24 Exam# [id number] Ordering Dr: Cynthia Sun DO [id number] CLINICAL: 68 year old female with right upper quadrant pain. RADIONUCLIDE HEPATOBILIARY SCINTIGRAPHY COMPARISON: None available FINDINGS: Following the intravenous administration of 5.3 mCi of 99m Tc Mebrofenin, hepatobiliary images reveal: 1. Relatively prompt and homogeneous radiopharmaceutical concentration is noted by a normal sized liver. No parenchymal defects are identified. 2. Gallbladder activity is identified at 30 minutes post radiopharmaceutical administration. 3. Small intestinal tract is observed at 15 minutes following tracer injection. 4. Washout of the radiopharmaceutical by the hepatic parenchyma appears qualitatively normal. Cholecystokinin (0.02 ug/kg) was administered intravenously over a 30-minute period. The post CCK gallbladder ejection fraction calculated at 20 minutes following Cholecystokinin administration was noted to be 37.0 % (normal greater than 35%). During 30 minutes of post CCK imaging, there is no scintigraphic evidence of reflux of the radiotracer into the common hepatic duct or refilling of the gallbladder. NM/Hepatobilliary Img w/Pharm Int IMPRESSION: 1. NORMAL 99m Tc Mebrofenin hepatobiliary imaging examination with Cholecystokinin. A. A gallbladder ejection fraction calculated to be greater than 35% following the administration of Cholecystokinin makes the probability of functional hepatobiliary disease (gallbladder and/or sphincter of Oddi dyskinesia) and/or organic hepatobiliary disease (chronic acalculous cholecystitis and/or cystic duct syndrome) to be low. (Сергей Santos et al, Journal of Nuclear Medicine 32:1695, 1990). Electronically Signed: Franco Reddy DO at 7:40 EDT , CC: Dr. Cynthia Sun DO Slitting Machine Feeder: Signed Normal [facility] CNOVon 11-08-2023 CNOV Office Visit (NEUBS ) GAURI GOLDMAN ([id number]) 1955 F Date Time Provider Department 11/08/23 9:30 AM DESTINY MAXWELL During your visit today, we recorded the following information about you: Destiny Maxwell APRN.MOLD MAINTENANCE TECHNICIAN 11/08/2023 10:55 AM Signed DATE: November 08, 2023 PT. NAME: Gauri Goldman [facility]#: [id number] IRB #: [id number] A. PROTOCOL: [facility] Brain Study Cogeneration Operator: Jarrod Vazquez MD, , Clay Arvizu MD, [facility] training personnel supervisor for study related questions: Therese Marx Is today the participant's first study visit? Yes Were there changes made to the informed consent since the last visit? Not Applicable If yes, were changes reviewed and explained to subject? Not Applicable Was a new copy of the informed consent signed, placed in the chart, placed in the study file and was a copy given to the patient? Not Applicable Patient Identification was verified by asking the patients Name and Date Of : YES Subject continues to give consent for participation and for procedures related to study YES. Time:10:20 EKG/ECG was performed on patient. Patient tolerated procedure well. BP: 165 / 83 BP Site: right arm BP Position: sitting Cuff size: regular Pulse: 71 Resp: 16 SPO2: 99 Weight: 133 lbs Height: 5' 1 Result of Physical Exam Body System Eyes: Abnormal ,glasses present, ambylopia present Ears, Nose, Mouth and Throat: Normal Cardiovascular: Normal Respiratory: Normal Musculoskeletal: Normal Integumentary: Normal Handedness: Right hand Results of Mental Status Assessment Mental Assessments Attention: Abnormality Present: No Memory Working Memory: Abnormality Present: No Recent (Episodic) Memory: Abnormality Present: No Remote (Semantic) Memory: Abnormality Present: No Language Spontaneous Speech: Abnormality Present: No Comprehension: Abnormality Present: No Naming: Abnormality Present: No Repetition: Abnormality Present: No Reading: Abnormality Present: No Affect: Abnormality Present: No Craninal Nerve Assessment Visual Finn: Normal EOM: Normal Nystagmus: Physiologic Pupils: Equal and reactive Ptosis: Absent Trigeminal: Normal CN VII: Normal CN VIII: Normal CN IX: Normal CN X: Normal CN XI: Normal CN XII: Normal Assessment of Motor and Bulk and Tones Motor Assessments Muscle bulk-global: Normal Muscle tone-global: Normal Motor Strength Assessment Shoulder flexion: Right 5 Left 5 Shoulder external rotation: Right 5 Left 5 Shoulder abduction: Right 5 Left 5 Elbow flexion: Right 5 Left 5 Elbow extension: Right 5 Left 5 Wrist flexion: Right 5 Left 5 Wrist extension: Right 5 Left 5 Finger flexion/car porter: Right 5 Left 5 Flexor pollicis longus: Right 5 Left 5 Abductor pollicis brevis: Right 5 Left 5 Hip flexion: Right 5 Left 5 Hip extension: Right 5 Left 5 Hip abduction: Right 5 Left 5 Hip adduction: Right 5 Left 5 Knee flexion: Right 5 Left 5 Knee extension: Right 5 Left 5 Ankle eversion: Right 5 Left 5 Ankle inversion: Right 5 Left 5 Ankle plantar flexion: Right 5 Left 5 Ankle dorsiflexion: Right 5 Left 5 Extensor halluces longus: Right 5 Left 5 Flexor digitorum longus: Right 5 Left 5 Reflexes - MRC Grading Method Biceps: Right 2+ Left 2+ Triceps: Right 2+ Left 2+ Brachioradialis: Right 3+ Left 3+ Patellar: Right 2+ Left 2+ Achilles: Right 2+ Left 2+ Plantar: Right Downgoing Left Downgoing Weakness?: No Tremor: No Cerebellar/Coordinati on Assessment Pwkwlo-lp-Qoti: Abnormality present: No, Vjmp-dq-Dojq: Abnormality present: No, Finger Tapping - Abnormality present: No Fist Open/Close - Abnormality present: No Pronation/Supination of the Hand - Abnormality present: No Toe Tapping - Abnormality present: No Heel Tapping - Abnormality present: No Gait Gait-global assessment: Normal Toe Walk: Normal Heel Walk: Normal Tandem Walk: Normal Romberg: Pass Sensory/Sensation Sensory System-globlal assessment: Abnormal Symmetry of Abnormality: Symmetric Location of Abnormality (select all that apply): Sensory Nerve Patient description of abnormal symptoms: Decreased temperature perception to bilateral great toes compared to midfeet Sensory modalities affected (select all that apply): Pain and temperature Destiny Easton, ECONOMIC HISTORY TEACHER.MOLD MAINTENANCE TECHNICIAN Allergies As of Date: 11/08/2023 (Not on File) Date Reviewed: Never Reviewed Primary Visit Diagnosis:Research exam [Z00.6] Problem List As Of Date: 11/08/2023 (None) Disposition: Return in about 1 year (around 11/07/2024). Follow-up and Disposition History for Encounter Date Provider Department Center 11/08/2023 [id number] MAXWELL Mo S Bldg Encounter S (more content not included)... Normal [facility] LIPID PANEL ([id number])Ordered B y: Garden Equipment Mechanic on 01-14-2023 Cholesterol [Mass/Vol] 203 mg/dL Abnormal 100-199 [facility]; [facility] Work Phone: Comment on above: PATIENT WAS FASTINGP ERFORMED BY: CB [facility] Ndafnf6844 [address] [facility]oscopy[facility] [place] [id number] Cholesterol in HDL [Mass/Vol] 45 mg/dL Normal [facility]; [facility] Work Phone: Comment on above: PATIENT WAS FASTINGP ERFORMED BY: CB [facility] Xwpwyw5312 [address] Max [facility]oscopyin [place] [id number] Triglyceride [Mass/Vol] 152 mg/dL Abnormal 0-149 [facility]; [facility] Work Phone: Comment on above: PATIENT WAS FASTINGP ERFORMED BY: CB [facility] Oukvkc5461 [address] [facility] [place] [id number] LIPID PANEL (74617) 27 mg/dL Normal 5-40 Compr [facility]; [facility] Work Phone: Comment on above: PATIENT WAS FASTINGP ERFORMED BY: CB [facility] Zrryzv7216 [address] [facility]oscopybl[facility] [place] [id number] LIPID PANEL (20899) 131 mg/dL Abnormal 0-99 Compr [facility]; [facility] Work Phone: Comment on above: PATIENT WAS FASTINGP ERFORMED BY: CB [facility] Btbcjy5405 [address] [facility] [place] [id number] LIPID PANEL (30731) 2.9 {ratio} Normal 0.0-3.2 Comp rehens[facility]; [facility] Work Phone: Comment on above: LDL/HDL Ratio Men Wo men 1/2 Avg.Risk 1.0 1.5 Avg.Risk 3.6 3.2 2X Avg.Risk 6.2 5.0 3X Avg.Risk 8.0 6.1 PATIENT WAS FASTINGP ERFORMED BY: ERNESTINA Estrella Myxysq5806 [facility] [id number] METABOLIC PANEL, COMPREHENSI VE ([id number])Ordered By: Garden Equipment Mechanic on 01-14-2023 Albumin [Mass/Vol] 4.5 g/dL Normal 3.8-4.8 [facility]; [facility] Work Phone: Comment on above: Effective January 19, 2023 Albumin reference interval will be changing to: Age Male Female 0 - 7 days 3.6 - 4.9 3.6 - 4.9 8 - 30 days 3.5 - 4.6 3.5 - 4.6 1 - 6 months 3.7 - 4.8 3.7 - 4.8 7 months - 2 years 4.0 - 5.0 4.0 - 5.0 3 - 5 years 4.1 - 5.0 4.1 - 5.0 6 - 12 years 4.2 - 5.0 4.2 - 5.0 13 - 30 years 4.3 - 5.2 4.0 - 5.0 31 - 50 years 4.1 - 5.1 3.9 - 4.9 51 - 60 years 3.8 - 4.9 3.8 - 4.9 61 - 70 years 3.9 - 4.9 3.9 - 4.9 71 - 80 years 3.8 - 4.8 3.8 - 4.8 81 - 89 years 3.7 - 4.7 3.7 - 4.7 90 - 199 years 3.6 - 4.6 3.6 - 4.6 PATIENT WAS FASTINGP ERFORMED BY: ERNESTINA [email or web address] BeauchampAyvhxw7245 [facility] [id number] Albumin/Globulin [Mass ratio] 2.0 {ratio} Normal 1.2-2.2 [facility]; [facility] Work Phone: Comment on above: PATIENT WAS FASTINGP ERFORMED BY: ERNESTINA [employer]70 [facility] [id number] ALP [Catalytic activity/Vol] 76 U/L Normal 44-121 [facility]; [facility] Work Phone: Comment on above: PATIENT WAS FASTINGP ERFORMED BY: ERNESTINA [facility] Rxsqkm9649 Liang RoadDublin [place] [id number] ALT [Catalytic activity/Vol] 18 U/L Normal 0-32 [facility]; [facility] Work Phone: Comment on above: PATIENT WAS FASTINGP ERFORMED BY: CB [facility] Jgzmlt3450 Liang RoadDublin [place] [id number] AST [Catalytic activity/Vol] 20 U/L Normal 0-40 [facility]; [facility] Work Phone: Comment on above: PATIENT WAS FASTINGP ERFORMED BY: ERNESTINA [facility] Olqkgp3789 Li[address] RoadDublin [place] [id number] Bilirubin [Mass/Vol] 0.4 mg/dL Normal 0.0-1.2 [facility]; [facility] Work Phone: Comment on above: PATIENT WAS FASTINGP ERFORMED BY: ERNESTINA [facility] Amthau8311 Liang RoadDublin [place] [id number] Calcium [Mass/Vol] 9.7 mg/dL Normal 8.7-10.3 [facility]; [facility] Work Phone: Comment on above: PATIENT WAS FASTINGP ERFORMED BY: [facility] Syozko20[address] RoadDublin [place] [id number] Chloride [Moles/Vol] 103 mmol/L Normal 96-106 [facility]; [facility] Work Phone: Comment on above: PATIENT WAS FASTINGP ERFORMED BY: CB [facility] Uwwukp7925 [address] RoadDublin [place] [id number] CO2 [Moles/Vol] 24 mmol/L Normal 20-29 [facility]; [facility] Work Phone: Comment on above: PATIENT WAS FASTINGP ERFORMED BY: CB [facility] Acebnb0609 [address] RoadDublin [place] [id number] Creatinine [Mass/Vol] 0.60 mg/dL Normal 0.57-1.00 [facility] prehensive Internal Medicine; [facility] Work Phone: Comment on above: PATIENT WAS FASTINGP ERFORMED BY: ERNESTINA [facility] Udynwp6193 [facility] [id number] GFR/1.73 sq M.predicted among non-blacks MDRD (S/P/Bld) [Vol rate/Area] 100 mL/min/{1.73_m2} Normal [facility]; [facility] Work Phone: Comment on above: PATIENT WAS FASTINGP ERFORMED BY: [facility]6370 [facility] [id number] Globulin (S) [Mass/Vol] 2.2 g/dL Normal 1.5-4.5 [facility]; [facility] Work Phone: Comment on above: PATIENT WAS FASTINGP ERFORMED BY: [facility]6370 [facility] [id number] Glucose [Mass/Vol] 89 mg/dL Normal 70-99 [facility]; [facility] Work Phone: Comment on above: PATIENT WAS FASTINGP ERFORMED BY: [facility] Vfoopk9718 [facility] [id number] Potassium [Moles/Vol] 4.2 mmol/L Normal 3.5-5.2 [facility] prehensive Internal Medicine; [facility] Work Phone: Comment on above: PATIENT WAS FASTINGP ERFORMED BY: [facility] Hgpoen0225 [facility] [id number] Protein [Mass/Vol] 6.7 g/dL Normal 6.0-8.5 [facility]; [facility] Work Phone: Comment on above: PATIENT WAS FASTINGP ERFORMED BY: [facility] Izrpwi4219 [facility] [id number] Sodium [Moles/Vol] 141 mmol/L Normal 134-144 [facility]; [facility] Work Phone: Comment on above: PATIENT WAS FASTINGP ERFORMED BY: ERNESTINA avelisbiotech.comcorp Gyjbgv0397 [address] [facility]oscopy[facility] [place] [id number] Urea nitrogen [Mass/Vol] 7 mg/dL Abnormal 8-27 [facility]; [facility] Work Phone: Comment on above: PATIENT WAS FASTINGP ERFORMED BY: ERNESTINA [facility] Iykssm4581 [address] RoadDublin [place] [id number] Urea nitrogen/Creatinine [Mass ratio] 12 mg/mg Normal 12-28 [facility]; [facility] Work Phone: Comment on above: PATIENT WAS FASTINGP ERFORMED BY: ERNESTINA [facility] Ynuxdv3054 [address] Choose DigitalDublin [place] [id number] Vitamin D Hydroxy (31074)Ord ered By: Garden Equipment Mechanic on 01-14-2023 25-hydroxyvitamin D [Mass/Vol] 51.8 ng/mL Normal 30.0-100.0 [facility]; [facility] Work Phone: Comment on above: Vitamin D deficiency has been defined by the Morrison ofMedicine and an Endocrine Society practice guideline as alevel of serum 25-OH vitamin D less than 20 ng/mL (1,2).The Endocrine Society went on to further define vitamin Dinsufficiency as a level between 21 and 29 ng/mL (2).1. IOM (Morrison of Medicine). 2010. Dietary reference intakes for calcium and D. [place]: The National Academies Press.2. Henny MF, Christopher NC, Sukhjinder JOINER, et al. Evaluation, treatment, and prevention of vitamin D deficiency: an Endocrine Society clinical practice guideline. JCEM. 2010; 96(7):1911-30. PATIENT WAS FASTINGP ERFORMED BY: ERNESTINA Labcogermán Hcnuad2696 LiangHighland[facility]Cl[facility] Hospitalin [place] [id number] Basophil percentageOrdered B y: Dr. Sun on 11-07-2022 Basophil percentage < 0.9 mg/dL 0.55-1.02 [facility] No Panel InformationOrdered By: Dr. Sun on 11-07-2022 Bedside Estimated GFR (eGFR) > 60.0000 mL/min >60 [facility] [address] CARDIAC SCORINGon 023 CT CARDIAC SCORING Patient Name: GAURI GOLDMAN STUDY: CT CARDIAC SCORING; 10/24/2022 12:36 pm INDICATION: HTN. COMPARISON: None. ACCESSION NUMBER(S): [id number] ORDERING CLINICIAN: CYNTHIA SUN TECHNIQUE: Using prospective ECG gating, CT scan of the coronary arteries was performed without intravenous contrast. Coronary calcium scoring was performed according to the method of Agatston. FINDINGS: The score and distribution of calcium in the coronary arteries is as follows: LM 0 LAD 0 LCx 0 RCA 0 Total 0 The visualized mid/lower ascending thoracic aorta measures 3.5 cm in diameter. The heart is normal in size. No pericardial effusion is present. No gross evidence of mediastinal or hilar lymphadenopathy or masses is identified. The visualized segments of the lungs are normally expanded. The visualized subdiaphragmatic structures appear intact. IMPRESSION: 1. Coronary artery calcium score of 0*. *Coronary artery calcium scoring may be helpful in predicting the risk for future coronary heart disease events. According to the [employer] Foundation Clinical Expert Consensus Task Force, such testing provides important prognostic information in patients with more than one coronary heart disease risk factor. The coronary artery calcium score correlates with the annual risk of a non-fatal myocardial infarction or coronary heart disease . Coronary artery score Annual Risk 0-99 0.4% 100-399 1.3% >400 2.4% These three breakpoints correspond to lower, intermediate and high risk states for future coronary events. Such information should be used, along with appropriate clinical judgment, to make decisions regarding the intensity of risk factor management strategies to treat blood lipids and to modify other non-lipid coronary risk factors. Reference: Kill Buck P et al. Circulation. 2007; 115:402-426 Electronically signed by: BENJI KAN MD [facility] CBC W/AUTO DIFF WBC ([id number])O rdered By: Garden Equipment Mechanic on 10-01-2022 Basophils (Bld) [#/Vol] 0.0 10*3/uL Normal 0.0-0.2 [facility]; [facility] Work Phone: Comment on above: PATIENT WAS FASTINGP ERFORMED BY: LabK[facility]6370 [facility] [id number] Basophils/100 WBC (Bld) 0 % Normal [facility]; [facility] Work Phone: Comment on above: PATIENT WAS FASTINGP ERFORMED BY: RENESTINA Delores Art[address] [facility] [place] [id number] Eosinophils (Bld) [#/Vol] 0.1 10*3/uL Normal 0.0-0.4 [facility]; [facility] Work Phone: Comment on above: PATIENT WAS FASTINGP ERFORMED BY: ERNESTINA Otiliaco Aacdqi2899 Liang RoadAtrium Health [id number] Eosinophils/100 WBC (Bld) 2 % Normal [facility]; [facility] Work Phone: Comment on above: PATIENT WAS FASTINGP ERFORMED BY: ERNESTINA Otiliahillary BeauchampThckys5079 [facility] [id number] Erythrocyte distribution width (RBC) [Ratio] 13.0 % Normal 11.7-15.4 Comprehensiv e Internal Medicine; [facility] Work Phone: Comment on above: PATIENT WAS FASTINGP ERFORMED BY: ERNESTINA Otiliamoreno Ygzyen1756 [address] [facility] [id number] Hematocrit (Bld) [Volume fraction] 41.6 % Normal 34.0-46.6 [facility]; [facility] Work Phone: Comment on above: PATIENT WAS FASTINGP ERFORMED BY: ERNESTINA Otiliaco Tugkwp1876 [facility] [id number] Hemoglobin (Bld) [Mass/Vol] 13.6 g/dL Normal 11.1-15.9 [facility]; [facility] Work Phone: Comment on above: PATIENT WAS FASTINGP ERFORMED BY: ERNESTINA [facility] Trsjyj4355 [facility]ang [facility] HospitalDublin [place] [id number] Immature granulocytes (Bld) [#/Vol] 0.0 10*3/uL Normal 0.0-0.1 [facility]; [facility] Work Phone: Comment on above: PATIENT WAS FASTINGP ERFORMED BY: [facility]6370 [facility] [id number] Immature granulocytes/100 WBC (Bld) 0 % Normal [facility]; [facility] Work Phone: Comment on above: PATIENT WAS FASTINGP ERFORMED BY: [facility]6370 [facility] [id number] Lymphocytes (Bld) [#/Vol] 1.8 10*3/uL Normal 0.7-3.1 [facility]; [facility] Work Phone: Comment on above: PATIENT WAS FASTINGP ERFORMED BY: [place] [id number] [facility] [id number] Lymphocytes/100 WBC (Bld) 33 % Normal [facility]; [facility] Work Phone: Comment on above: PATIENT WAS FASTINGP ERFORMED BY: [place] [id number] [facility] [id number] MCH (RBC) [Entitic mass] 28.4 pg Normal 26.6-33.0 [facility]; [facility] Work Phone: Comment on above: PATIENT WAS FASTINGP ERFORMED BY: [place] [id number] [facility] [id number] MCHC (RBC) [Mass/Vol] 32.7 g/dL Normal 31.5-35.7 [facility]; [facility] Work Phone: Comment on above: PATIENT WAS FASTINGP ERFORMED BY: [facility]6370 [facility] [id number] MCV (RBC) [Entitic vol] 87 fL Normal 79-97 [facility]; [facility] Work Phone: Comment on above: PATIENT WAS FASTINGP ERFORMED BY: [facility]6370 [facility] [id number] Monocytes (Bld) [#/Vol] 0.3 10*3/uL Normal 0.1-0.9 [facility]; [facility] Work Phone: Comment on above: PATIENT WAS FASTINGP ERFORMED BY: CB [facility] Taxrzy4452 [address] RoadDublin [place] [id number] Monocytes/100 WBC (Bld) 6 % Normal C omprehensive Internal Medicine; [facility] Work Phone: Comment on above: PATIENT WAS FASTINGP ERFORMED BY: CB [facility] Asftap4767 Liang RoadDublin [place] [id number] Neutrophils (Bld) [#/Vol] 3.1 10*3/uL Normal 1.4-7.0 [facility]; [facility] Work Phone: Comment on above: PATIENT WAS FASTINGP ERFORMED BY: CB [facility] Fecveu5347 [address]ang RoadDublin [place] [id number] Neutrophils/100 WBC (Bld) 59 % Normal [facility]; [facility] Work Phone: Comment on above: PATIENT WAS FASTINGP ERFORMED BY: CB [facility] Mknfbu0003 [address] RoadDublin [place] [id number] Platelets (Bld) [#/Vol] 228 10*3/uL Normal 150-450 [facility]; [facility] Work Phone: Comment on above: PATIENT WAS FASTINGP ERFORMED BY: CB [facility] Gomblx3201 [address]ang RoadDublin [place] [id number] RBC (Bld) [#/Vol] 4.79 10*6/uL Normal 3.77-5.28 [facility]; [facility] Work Phone: Comment on above: PATIENT WAS FASTINGP ERFORMED BY: CB [facility] Baawqu7581 [address] RoadDublin [place] [id number] WBC (Bld) [#/Vol] 5.3 10*3/uL Normal 3.4-10.8 [facility]; [facility] Work Phone: Comment on above: PATIENT WAS FASTINGP ERFORMED BY: CB [facility] Dstuhh3942 Liang RoadDublin [place] [id number] METABOLIC PANEL, COMPREHENSI VE ([id number])Ordered By: Garden Equipment Mechanic on 10-01-2022 Albumin [Mass/Vol] 4.9 g/dL Abnormal 3.8-4.8 [facility] Internal Medicine; [facility] Work Phone: Comment on above: PATIENT WAS FASTINGP ERFORMED BY: CB [facility] Mpccji2559 [address] RoadDublin [place] [id number] Albumin/Globulin [Mass ratio] 2.3 {ratio} Abnormal 1.2-2.2 [facility]; [facility] Internal Medicine Work Phone: Comment on above: PATIENT WAS FASTINGP ERFORMED BY: CB [facility] Ccjyru2570 [address] RoadDublin [place] [id number] ALP [Catalytic activity/Vol] 83 U/L Normal 44-121 [facility]; [facility] Work Phone: Comment on above: PATIENT WAS FASTINGP ERFORMED BY: ERNESTINA [facility] Jharmq7412 [address] RoadDublin [place] [id number] ALT [Catalytic activity/Vol] 13 U/L Normal 0-32 [facility]; [facility] Work Phone: Comment on above: PATIENT WAS FASTINGP ERFORMED BY: CB [facility] Tsppsu7405 [address] RoadDublin [place] [id number] AST [Catalytic activity/Vol] 17 U/L Normal 0-40 [facility]; [facility] Work Phone: Comment on above: PATIENT WAS FASTINGP ERFORMED BY: [facility] Cyttuk8838 [address] RoadDublin [place] [id number] Bilirubin [Mass/Vol] 0.2 mg/dL Normal 0.0-1.2 [facility] Internal Medicine; [facility] Internal Medicine Work Phone: Comment on above: PATIENT WAS FASTINGP ERFORMED BY: CB [facility] Iiimqa1935 [address] RoadDublin [place] [id number] Calcium [Mass/Vol] 9.6 mg/dL Normal 8.7-10.3 [facility] Internal Medicine; [facility] Work Phone: Comment on above: PATIENT WAS FASTINGP ERFORMED BY: CB [facility] Jytkbo3904 [address] RoadDublin [place] [id number] Chloride [Moles/Vol] 106 mmol/L Normal 96-106 Comp rehensive Internal Medicine; [facility] Work Phone: Comment on above: PATIENT WAS FASTINGP ERFORMED BY: [facility] Uwrpzr0706 [facility] [id number] CO2 [Moles/Vol] 24 mmol/L Normal 20-29 Comprehen [facility] Internal Medicine; [facility] Work Phone: Comment on above: PATIENT WAS FASTINGP ERFORMED BY: [facility] Mljoyv0442 [facility] [id number] Creatinine [Mass/Vol] 0.58 mg/dL Normal 0.57-1.00 [facility] prehensive Internal Medicine; [facility] Work Phone: Comment on above: PATIENT WAS FASTINGP ERFORMED BY: [facility]6370 [facility] [id number] GFR/1.73 sq M.predicted among non-blacks MDRD (S/P/Bld) [Vol rate/Area] 100 mL/min/{1.73_m2} Normal C omprehensive Internal Medicine; [facility] Work Phone: Comment on above: PATIENT WAS FASTINGP ERFORMED BY: [facility]6370 [facility] [id number] Globulin (S) [Mass/Vol] 2.1 g/dL Normal 1.5-4.5 [facility] Internal [facility]; [facility] Work Phone: Comment on above: PATIENT WAS FASTINGP ERFORMED BY: [facility] Tdwpig2003 [facility] [id number] Glucose [Mass/Vol] 95 mg/dL Normal 70-99 [facility] Internal Medicine; [facility] Work Phone: Comment on above: PATIENT WAS FASTINGP ERFORMED BY: [facility] Kmfnkt3499 [address] [facility] [id number] Potassium [Moles/Vol] 4.5 mmol/L Normal 3.5-5.2 [facility] prehensive Internal Medicine; [facility] Work Phone: Comment on above: PATIENT WAS FASTINGP ERFORMED BY: ERNESTINA [facility] Trjlte8640 [address] RoadDublin [place] [id number] Protein [Mass/Vol] 7.0 g/dL Normal 6.0-8.5 [facility] Internal Medicine; [facility] Work Phone: Comment on above: PATIENT WAS FASTINGP ERFORMED BY: ERNESTINA [facility] Vgvdsx4289 [address] RoadDublin [place] [id number] Sodium [Moles/Vol] 143 mmol/L Normal 134-144 [facility] Internal Medicine; [facility] Work Phone: Comment on above: PATIENT WAS FASTINGP ERFORMED BY: ERNESTINA Labcogermán Fcwibw2677 Li[address] RoadDublin [place] [id number] Urea nitrogen [Mass/Vol] 11 mg/dL Normal 8-27 [facility]; [facility] Work Phone: Comment on above: PATIENT WAS FASTINGP ERFORMED BY: ERNESTINA [facility] Pvwdqs7440 [address] RoadDublin [place] [id number] Urea nitrogen/Creatinine [Mass ratio] 19 mg/mg Normal 12-28 [facility]; [facility] Work Phone: Comment on above: PATIENT WAS FASTINGP ERFORMED BY: ERNESTINA Labhillary Bsssuj8639 [address] RoadDublin [place] [id number] MICROALBUMINOrdered By: Syst em Barrel Maker on 10-01-2022 Albumin DL <= 20 mg/L (U) [Mass/Vol] 4.5 ug/mL Normal [facility]; [facility] Work Phone: Comment on above: PATIENT WAS FASTINGP ERFORMED BY: ERNESTINA [facility] Mlnhhg3451 [address] RoadDublin [place] [id number] Albumin/Creatinine (U) [Mass ratio] 24 {mg/g_creat} Normal 0-29 [facility]; [facility] Work Phone: Comment on above: Normal: 0 - 29 Moder ately increased: 30 - 300 Severely increased: >300 PATIENT WAS FASTINGP ERFORMED BY: ERNESTINA [facility] Ukaniv0303 [address] Roadblin [place] [id number] Creatinine (U) [Mass/Vol] 18.5 mg/dL Normal [facility]; [facility] Work Phone: Comment on above: PATIENT WAS FASTINGP ERFORMED BY: ERNESTINA Delores Art6370 [address] RoadDublin [place] [id number] URINALYSIS, W/ MICRO ([id number]) Ordered By: Garden Equipment Mechanic on 10-01-2022 Appearance (U) Clear Normal Comprehens shiloh Internal Medicine; [facility] Work Phone: Comment on above: PATIENT WAS FASTINGP ERFORMED BY: ERNESTINA Delores Art6370 [address] RoadDublin [place] [id number] Bilirubin Ql (U) Negative Normal Comprehe nsive Internal Medicine; [facility] Work Phone: Comment on above: PATIENT WAS FASTINGP ERFORMED BY: ERNESTINA Santiagogermán BeauchampDozbyo7950 [address] RoadCommunity Healthin [place] [id number] Color (U) Yellow Normal [facility]; [facility] Work Phone: Comment on above: PATIENT WAS FASTINGP ERFORMED BY: ERNESTINA Delores Art6370 [address] RoadDuin [place] [id number] Glucose Ql (U) Negative Normal Comprehens shiloh Internal Medicine; [facility] Work Phone: Comment on above: PATIENT WAS FASTINGP ERFORMED BY: ERNESTINA Santiagogermán BeauchampCmzeds1791 Li[address] RoadDuin [place] [id number] Hemoglobin Ql (U) Negative Normal Compreh ensive Internal Medicine; [facility] Work Phone: Comment on above: PATIENT WAS FASTINGP ERFORMED BY: ERNESTINA Delores Beauchamplin6370 [address] RoadDublin [place] [id number] Ketones Ql (U) Negative Normal Comprehens shiloh Internal Medicine; [facility] Work Phone: Comment on above: PATIENT WAS FASTINGP ERFORMED BY: ERNESTINA Delores Beauchamplin6370 [address] RoadDublin [place] [id number] Leukocyte esterase Test strip Ql (U) 1+ Abnormal [facility]; [facility] Work Phone: Comment on above: PATIENT WAS FASTINGP ERFORMED BY: ERNESTINA Delores Art6370 [address] RoadDublin [place] [id number] Microscopic observation LM Nom (Urine sed) See below: Normal [facility]; [facility] Work Phone: Comment on above: Microscopic was herve cated and was performed. PATIENT WAS FASTINGP ERFORMED BY: ERNESTINA Delores Art[address] [facility]blin [place] [id number] Nitrite Ql (U) Negative Normal Comprehens shiloh Internal Medicine; [facility] Work Phone: Comment on above: PATIENT WAS FASTINGP ERFORMED BY: ERNESTINA Santiagogermán Kmqffo2123 [address] [facility]bl[facility] [place] [id number] pH (U) 7.0 [pH] Normal 5.0-7.5 [facility]; [facility] Work Phone: Comment on above: PATIENT WAS FASTINGP ERFORMED BY: ERNESTINA Beauchamplin[address] [facility]in [place] [id number] Protein Ql (U) Negative Normal Comprehens shiloh Internal Medicine; [facility] Work Phone: Comment on above: PATIENT WAS FASTINGP ERFORMED BY: ERNESTINA Santiagogermán BeauchampDvetyw0539 [facility]in [place] [id number] Specific gravity (U) [Rel density] 1.006 1 Normal 1.005-1.03 0 [facility]; [facility] Work Phone: Comment on above: PATIENT WAS FASTINGP ERFORMED BY: ERNESTINA Santiagogermán Qzpzxs[address] [facility]in [place] [id number] Urobilinogen (U) [Mass/Vol] 0.2 mg/dL Normal 0.2-1.0 [facility]; [facility] Work Phone: Comment on above: PATIENT WAS FASTINGP ERFORMED BY: ERNESTINA Otiliahillary BeauchampTwiciv[address] [facility]in [place] [id number] Vital Signs Date Time Vital Sign Value Performing Clinician Facility 10-26-2024 09:07-0400 Body height 154.94 cm Out of Physician [facility] 10-26-2024 09:07-0400 Body mass index (BMI) [Ratio] 24.8 kg/m2 Out of Physician [facility] 10-26-2024 09:07-0400 Body weight 59.5 kg Out of Physician [facility] 10-26-2024 09:07-0400 Diastolic blood pressure 89 mm[Hg] Out of Physician [facility] 10-26-2024 09:07-0400 Heart rate 89 /min Out of Physician [facility] 10-26-2024 09:07-0400 Respiratory rate 18 /min Out of Physician [facility] 10-26-2024 09:07-0400 SaO2% (BldA) [Mass fraction] 96 % Out of Physician [facility] 10-26-2024 09:07-0400 Systolic blood pressure 164 mm[Hg] Out of Physician [facility] 10-18-2024 08:47-0400 Body height 154.9 cm Greg Nick MOLD MAINTENANCE TECHNICIAN Work Phone: [facility] 10-18-2024 08:47-0400 Body mass index (BMI) [Ratio] 24.56 kg/m2 Greg Nick MOLD MAINTENANCE TECHNICIAN Work Phone: [facility] 10-18-2024 08:47-0400 Body weight 58.97 kg Greg Nick MOLD MAINTENANCE TECHNICIAN Work Phone: [facility] 10-18-2024 08:47-0400 Diastolic blood pressure 76 mm[Hg] Greg Nick MOLD MAINTENANCE TECHNICIAN Work Phone: [facility] 10-18-2024 08:47-0400 Heart rate 70 /min Greg Nick MOLD MAINTENANCE TECHNICIAN Work Phone: [facility] 10-18-2024 08:47-0400 SaO2% (BldA) [Mass fraction] 98 % Greg Nick MOLD MAINTENANCE TECHNICIAN Work Phone: [facility] 10-18-2024 08:47-0400 Systolic blood pressure 124 mm[Hg] Greg Nick MOLD MAINTENANCE TECHNICIAN Work Phone: [facility] 09-26-2024 18:00-0400 Diastolic blood pressure 67 mm[Hg] Gem Galvan MD Work Phone: [facility] 09-26-2024 18:00-0400 Heart rate 78 /min Gem Galvan MD Work Phone: [facility] 09-26-2024 18:00-0400 SaO2% (BldA) [Mass fraction] 93 % Gem Galvan MD Work Phone: [facility] 09-26-2024 18:00-0400 Systolic blood pressure 108 mm[Hg] Gem Galvan MD Work Phone: [facility] 09-26-2024 11:51-0400 Body temperature 98.1 [degF] Gem Galvan MD Work Phone: [facility] 09-26-2024 11:51-0400 Respiratory rate 16 /min Gem Galvan MD Work Phone: [facility] 09-26-2024 00:19-0400 Body mass index (BMI) [Ratio] 24.79 kg/m2 Gem Galvan MD Work Phone: [facility] 09-26-2024 00:19-0400 Body weight 59.5 kg Gem Galvan MD Work Phone: [facility] 09-24-2024 10:49-0400 Body height 154.9 cm Gem Galvan MD Work Phone: [facility] 09-23-2024 10:56-0400 Heart rate 93 /min Rina Thomas MD Work Phone: [facility] 09-23-2024 10:56-0400 Respiratory rate 20 /min Rina Thomas MD Work Phone: [facility] 09-23-2024 10:56-0400 SaO2% (BldA) [Mass fraction] 94 % Rina Thomas MD Work Phone: [facility] 09-23-2024 10:30-0400 Diastolic blood pressure 81 mm[Hg] Rina Thomas MD Work Phone: [facility] 09-23-2024 10:30-0400 Systolic blood pressure 126 mm[Hg] Rina Thomas MD Work Phone: [facility] 09-23-2024 08:22-0400 Body height 154.9 cm Rina Thomas MD Work Phone: [facility] 09-23-2024 08:22-0400 Body mass index (BMI) [Ratio] 24.94 kg/m2 Rina Thomas MD Work Phone: [facility] 09-23-2024 08:22-0400 Body weight 59.88 kg Rina Thomas MD Work Phone: [facility] 09-23-2024 08:20-0400 Body temperature 98.2 [degF] Rina Thomas MD Work Phone: [facility] 09-06-2024 20:05-0500 Body height 154.9 cm Andre Ramon MD Work Phone: [facility] 09-06-2024 20:00-0500 Body temperature 97.59 [degF] Andre Ramon MD Work Phone: [facility] 09-06-2024 20:00-0500 Diastolic blood pressure 92 mm[Hg] Andre Ramon MD Work Phone: [facility] 09-06-2024 20:00-0500 Heart rate 93 /min Andre Ramon MD Work Phone: [facility] 09-06-2024 20:00-0500 Respiratory rate 17 /min Andre Ramon MD Work Phone: [facility] 09-06-2024 20:00-0500 SaO2% (BldA) [Mass fraction] 97 % Andre Ramon MD Work Phone: [facility] 09-06-2024 20:00-0500 Systolic blood pressure 147 mm[Hg] Andre Ramon MD Work Phone: [facility] 03-31-2024 13:31-0400 Body height 154.9 cm Viky Urrutia MD Work Phone: [facility] 03-31-2024 13:31-0400 Body mass index (BMI) [Ratio] 23.81 kg/m2 Viky Urrutia MD Work Phone: [facility] 03-31-2024 13:31-0400 Body weight 57.15 kg Viky Urrutia MD Work Phone: [facility] 03-31-2024 13:31-0400 Diastolic blood pressure 90 mm[Hg] Viky Urrutia MD Work Phone: [facility] 03-31-2024 13:31-0400 Heart rate 114 /min Viky Urrutia MD Work Phone: [facility] 03-31-2024 13:31-0400 SaO2% (BldA) [Mass fraction] 97 % Viky Urrutia MD Work Phone: [facility] 03-31-2024 13:31-0400 Systolic blood pressure 148 mm[Hg] Viky Urrutia MD Work Phone: [facility] 09-03-2023 10:19-0500 Body height 154.9 cm Mahamed Kolb DO Work Phone: [facility] 09-03-2023 10:19-0500 Body mass index (BMI) [Ratio] 25.62 kg/m2 Mahamed Kolb DO Work Phone: [facility] 09-03-2023 10:19-0500 Body temperature 98.2 [degF] Mahamed Kolb DO Work Phone: [facility] 09-03-2023 10:19-0500 Body weight 61.51 kg Mahamed Kolb DO Work Phone: [facility] 09-03-2023 10:19-0500 Diastolic blood pressure 84 mm[Hg] Mahamed Kolb DO Work Phone: [facility] 09-03-2023 10:19-0500 Heart rate 78 /min Mahamed Kolb DO Work Phone: [facility] 09-03-2023 10:19-0500 SaO2% (BldA) [Mass fraction] 98 % Mahamed Kolb DO Work Phone: [facility] 09-03-2023 10:19-0500 Systolic blood pressure 142 mm[Hg] Mahamed Kolb DO Work Phone: [facility] 01-20-2023 08:10-0400 Body height 154.31 cm Cynthia A Fast DO Work Phone: [facility]; [facility] Work Phone: 01-20-2023 08:10-0400 Body mass index (BMI) [Ratio] 25.53 kg/m2 Cynthia A Fast DO Work Phone: [facility]; [facility] Work Phone: 01-20-2023 08:10-0400 Body surface area Derived from formula 1.59 m2 Cynthia A Fast DO Work Phone: [facility]; [facility] Work Phone: 01-20-2023 08:10-0400 Body temperature 97.1 [degF] Cynthia A Fast DO Work Phone: [facility]; [facility] Work Phone: Comment on above: Method: Oral 01-20-2023 08:10-0400 Body weight 60.78 kg Cynthia A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 the lateral patellofemoral joint space. Aggravating squatting /kneeling /stairs . Alleviating factors walking. Patient symptoms affects sleeping. Patient patient is active hiking and travels. Patient pain affects QOL and function. 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 SOCIAL: - Pain Left Shoulder Pain Intensity (Out of 10): 6 Pain Intensity Range: 10 Left Knee Pain Intensity (Out of 10): 3 Pain Intensity Range: 10 - Objective POSTURE: mild forward posture. GAIT: reciprocal pattern. PALPATION: tender AC , medial joint line. EDEMA: UNREMARKABLE. GAIT: reciprocal pattern. NEURO: denies paresthesia/tingling. AROM SHOULDER LEFT: flexion 140 degrees ,abduction 135 degrees in scaption , ER 80 degrees ,IR L2. AROM: 5-115 degrees supine left knee. MMT:( peak force) quads 23.7 ,hamstrings 22,6 ,hip flexion 24.8 ,hip abduction 18.9. RTC: 4/5 ,DELTOID 4/5 - Special Tests L Knee Shantell - Meniscus: Negative L Knee Anterior Drawer - ACL: Negative L Knee Posterior Drawer - PCL: Positive L Knee Valgus - MCL: Negative L Knee Varus - LCL: Negative L Knee Patellar Apprehension - PFS: Negative L Shoulder Empty Can - SS: Positive L Shoulder Belly Press - SupScap: Negative L Shoulder Neer - Impingement: Positive L Shoulder Lau Kaushik - Impingement: Positive - Balance/Special Test Scores Quick DASH Score: 38.6350 - Goals Goal 1:: I with HEP for shoulder and knee Goal Time Frame: 4-6 Weeks Goal 2:: Patient to demonstrate 60% improvement with decrease pain and improve function Goal Time Frame: 4-6 Weeks Goal 3:: Patient improve peak force of quads/hams/hip by 5-10 to improve function Goal Time Frame: 4-6 Weeks Goal 4:: Patient to improve AROM left shoulder by 5-10 degrees for OH activities and ADLS Goal Time Frame: 4-6 Weeks Goal 5:: Patient AROM left knee flexion by 5-10 degrees to improve stairs and modified squatting Goal Time Frame: 4-6 Weeks Goal 6:: Patient to improve quick dash shoulder by 5 points to improve QOL Goal Time Frame: 4-6 Weeks - Rehabilitation Potential Physical Therapy Diagnosis: Patient has left shoulder pain with signs of impingement with decrease ROM with pain impairs OH activities and ADL's and left knee pain with decrease ROM weakness impairs walking and standing with difficulty with squatting/kneeling thus benefit from skilled PT Rehabilitation Potential: Good - Anticipated Interventions Patient/Client Instruction: Educate patient on: Condition, Plan of Care For the Purpose of:: To decrease pain, To increase ROM, To improve muscle performance and motor function, To improve ability to perform ADL's, To increase tolerance to activity/condition/positio n, To improve ability of physical actions for home/community/work/leisur e, To improve health of tissue, To decrease soft tissue restriction, To increase flexibility/ROM, To improve balance, To improve tolerance to ADL's Therapeutic Exercise to Include: Strength training, Postural training, Flexibilty training, Active ROM Comment: RTC/QUADS/HAMS/HIP For the Purpose of:: To decrease pain, To increase ROM, To improve muscle performance and motor function, To improve ability to perform ADL's, To increase tolerance to activity/condition/positio n, To improve ability of physical actions for home/community/work/leisur e, To improve health of tissue, To decrease soft tissue restriction, To increase flexibility/ROM, To reduce risk of recurrence Manual Therapy Techniques to Include: Mobilization, Passive ROM Comment: G-H For the Purpose of:: To decrease pain, To increase ROM, To improve health of tissue, To decrease soft tissue restriction, To increase flexibility/ROM TENS: Yes IF ES: Yes Thermo therapy (hot pack): Yes Ultrasound (thermal/non thermal): Yes For the Purpose of:: To decrease pain, To increase ROM, To improve health of tissue, To decrease soft tissue restriction, To increase flexibility/ROM Thank you for the opportunity to evaluate your patient. For Medicare and Medicare HMO plans, please review the plan of care and approve it. It will need to be FAXED BACK to us at [phone] for Medicare purposes. For Medicare only, by signing this I certify the plan of care. Please let me know if there are questions or concerns regarding this plan of care. Physician Signature: Date: <Electronically signed by Nabeel Anton PT, Cert. T, OCS> 10/24/22 1257 CC: Dr. Cynthia Sun DO MARLEE Signed Cynthia Sun DO Work Phone: Start: 10-15-2022 End: 10-16-2022 Hand Min 3 Views Procedure Note: See Note; NOTES: [facility] [address] [place] [address] Hand Min 3 Views MR#: [id number] Acct: [id number] Name: GAURI GOLDMAN Rep #: [id number] : 1955 F 67 From: Donnell Lew MD PCP: Dr. Cynthia Sun DO Status: DEP AMB Study: Hand Min 3 Views Date of Exam: 10/15/22 Exam# [id number] Ordering Dr: Cynthia Sun DO STUDY: X-RAY - RIGHT HAND REASON FOR EXAM: Female, 67 years old. Bone pain. TECHNIQUE: 3 view(s) of the hand. COMPARISON: None. FINDINGS: Osteopenia. Mild arthrosis of the radiocarpal articulation. Hydronephrosis of the distal radioulnar joint. Mild arthrosis of the radial carpal row of the wrist. Mild arthrosis of the first CMC joint. Mild arthrosis of the MCP and IP joints. Normal soft tissues. RAD/Hand Min 3 Views IMPRESSION: Osteopenia with diffuse osteoarthrosis as described. No acute abnormality, erosive changes or chondrocalcinosis. Electronically Signed: Donnell Lew, at 9:28 EDT , CC: Dr. Cynthia Sun DO Slitting Machine Feeder: Signed Cynthia Sun DO Work Phone: Start: 10-15-2022 Plain x-ray of hand Dr. Cynthia Sun Work Phone: Start: 10-01-2022 Plain X-ray of shoulder Dr. Cynthia Sun Work Phone: Start: 10-01-2022 Radiologic examination of knee Dr. Cynthia Sun Work Phone: Start: 10-01-2022 End: 10-01-2022 Knee 4 or More Views Procedure Note: See Note; NOTES: [facility] [address] [place] [address] Knee 4 or More Views MR#: [id number] Acct: [id number] Name: GAURI GOLDMAN Rep #: [id number] : 1955 F 67 From: Ramiro Stafford MD PCP: Status: DEP AMB Study: Knee 4 or More Views Date of Exam: 10/01/22 Exam# [id number] Ordering Dr: Cynthia Sun DO INDICATION: left knee pain -- left knee pain EXAMINATION/TECHNIQUE: X-RAY - LEFT XR Knee Complete 4 Views or More 4 VIEWS COMPARISON: None. FINDINGS: SOFT TISSUES: No soft tissue swelling or gas. No radiopaque foreign body. BONES/JOINTS: No acute fracture or subluxation. Normal alignment. Mild narrowing of the lateral patellofemoral joint space. Mild medial compartment joint space narrowing. Small tricompartmental osteophytes.. No sclerotic or destructive changes observed. RAD/Knee 4 or More Views IMPRESSION: Tricompartmental DJD, including asymmetric narrowing of the lateral patellofemoral joint space. Electronically Signed: Ramiro Stafford MD at 16:59 EDT , CC: Dr. Cynthia Sun DO Slitting Machine Feeder: Signed Cynthia Sun DO Work Phone: Start: 10-01-2022 End: 10-01-2022 Shoulder min 2 Views Procedure Note: See Note; NOTES: [facility] [address] [place] [address] Shoulder min 2 Views MR#: [id number] Acct: [id number] Name: GAURI GOLDMAN Rep #: [id number] : 1955 F 67 From: Ramiro Stafford MD PCP: Status: DEP AMB Study: Shoulder min 2 Views Date of Exam: 10/01/22 Exam# [id number] Ordering Dr: Cynthia Sun DO INDICATION: Left shoulder with ac joint -- left shoulder with ac joint EXAMINATION/TECHNIQUE: X-RAY - LEFT XR Shoulder Min 2 Views 4 VIEWS COMPARISON: None. FINDINGS: SOFT TISSUES: Dependent ossific joint body No radiopaque foreign body. BONES/JOINTS: No acute fracture or subluxation. Normal alignment. Glenohumeral and acromioclavicular joint space narrowing and small osteophytes. Greater tuberosity cortex irregularity. RAD/Shoulder min 2 Views IMPRESSION: Glenohumeral and acromioclavicular DJD with a dependent loose joint body. Irregular greater tuberosity suggests rotator cuff disease. Electronically Signed: Ramiro Stafford MD at 17:11 EDT , CC: Dr. Cynthia Sun, DO Slitting Machine Feeder: Signed Cynthia Sun DO Work Phone: Other bilateral liga tion and division of fallopian tubes Cynthia Aayush Brenden DO Work Phone: Other bilateral liga tion and division of fallopian tubes Mindi Verma [employer] Other bilateral liga tion and division of fallopian tubes Susu Christina MA partial hysterectomy - still has right ovary- due to prolapse- 2015 Cynthia Looney Fast DO Work Phone: partial hysterectomy - still has right ovary- due to prolapse- 2015 Mindi Manlizbet [employer] partial hysterectomy - still has right ovary- due to prolapse- 2015 Susu Christina MA Plan of Treatment Date Care Activity Detail Author Start: 2032 RSV VACCINE (1 - 1-dose 75+ series) RSV VACCINE (1 - 1-dose 75+ series) [facility] Start: 09-24-2029 Lipid panel LIPID SCREENING [facility] Start: 09-27-2027 Diabetes Screening Diabetes Screening [facility] Start: 11-03-2025 Screening for malignant neoplasm of colon [facility] Start: 03-09-2025 ambulatory [facility] Start: 02-24-2025 ambulatory Ambulatory Facility:[facility] Start: 07-13-2024 Advance Directive Discussion Advance Directive Discussion [facility] Start: 03-31-2024 End: 03-31-2025 CT Abdomen limited W contrast IV CT ABDOMEN WITH IV CONTRAST ONLY Imaging Routine RUQ pain Expected: 03/31/2024 (Approximate), Expires: 03/31/2025 [facility] Comment on above: Expected: 03/31/2024 (Approximate), Expi res: 03/31/2025 Start: 03-13-2024 COVID-19 VACCINE ( season) COVID-19 VACCINE () [facility] Start: 03-13-2024 COVID-19 VACCINE ( season) COVID-19 VACCINE ( season) [facility] Start: 03-13-2024 Influenza vaccination [facility] Start: 11-04-2023 Screening for malignant neoplasm of colon COLORECTAL CANCER SCREENING DISCUSSION [facility] Start: 07-13-2023 Advance Directive Discussion Advance Directive Discussion [facility] Start: 07-13-2023 Behavioral Health Screening Behavioral Health Screening [facility] Start: 03-13-2023 COVID-19 VACCINE ( season) COVID-19 VACCINE ( season) [facility] Start: 01-20-2023 Procedure Education Eprescribed prescriptions (G8553) [facility] Work Phone: Start: 01-20-2023 25 hydroxy includes fractions if performed Vitamin D Hydroxy (89769) [facility] Work Phone: Start: 01-20-2023 Lipid panel LIPID PANEL (36787) [facility] Work Phone: Start: 01-20-2023 Blood count complete auto&auto difrntl wbc CBC W/AUTO DIFF WBC (33127) [facility] Work Phone: Start: 01-20-2023 Comprehensive metabolic panel METABOLIC PANEL, COMPREHENSIVE (86974) [facility] Work Phone: Start: 12-16-2022 Screening mammography SCRN MAMM (CAD)W/IRMA [facility] Start: 11-03-2022 Procedure Education Eprescribed prescriptions (G8553) [facility]; [facility] Work Phone: Start: 10-15-2022 Procedure Education Eprescribed prescriptions (G8553) [facility] Work Phone: Start: 10-15-2022 Comprehensive metabolic panel METABOLIC PANEL, COMPREHENSIVE (50938) [facility] Work Phone: Start: 10-15-2022 Lipid panel LIPID PANEL (75999) [facility] Work Phone: Start: 10-15-2022 25 hydroxy includes fractions if performed Vitamin D Hydroxy (77235) [facility]; [facility] Work Phone: Start: 10-01-2022 Procedure Education Eprescribed prescriptions (G8553) [facility] Work Phone: Start: 05-26-2022 Urnls dip stick/tablet reagent auto microscopy URINALYSIS, W/ MICRO (79584) [facility]; [facility] Work Phone: Start: 05-26-2022 Urine albumin quantitative MICROALBUMIN: CREATININE RATIO (69092) AND (53902) [facility]; [facility] Work Phone: Start: 05-26-2022 Blood count complete auto&auto difrntl wbc CBC W/AUTO DIFF WBC (41262) [facility]; [facility] Work Phone: Start: 05-26-2022 Comprehensive metabolic panel METABOLIC PANEL, COMPREHENSIVE (05049) [facility] Work Phone: Start: 04-07-2022 Procedure Education Eprescribed prescriptions (G8553) [facility]; [facility] Work Phone: Start: 2022 Pneumococcal vaccination [facility] Start: 2022 Pneumococcal Vaccine: 65+ (1 of 1 - PCV) Pneumococcal Vaccine: 65+ (1 of 1 - PCV) [facility] Start: 2022 Screening for osteoporosis Bone Density Screening [facility] Start: 03-13-2022 Influenza vaccination INFLUENZA VACCINE (#1) [facility] Start: 2017 RSV Vaccine (1 - 1-dose 60+ series) RSV Vaccine (1 - 1-dose 60+ series) [facility] Start: 2007 Pneumococcal Vaccine: 50+ (1 of 1 - PCV) Pneumococcal Vaccine: 50+ (1 of 1 - PCV) [facility] Start: 2007 Shingrix Vaccine (1 of 2) Shingrix Vaccine (1 of 2) [facility] Start: 2007 Zoster vaccine hzv live for subcutaneous use ZOSTER (SHINGLES) VACCINE (1 of 2) [facility] Start: 2002 Diabetes Screening Diabetes Screening [facility] Start: 2002 Lipid panel Lipid Screening [facility] Start: 2002 Screening for malignant neoplasm of colon [facility] Start: 1997 Lipid panel LIPID SCREENING [facility] Start: 1997 Screening for malignant neoplasm of breast [facility] Start: 1978 Screening for malignant neoplasm of cervix CERVICAL CANCER SCREENING DISCUSSION [facility] Start: 1976 Third diphtheria, tetanus and acellular pertussis (DTaP) vaccination TDAP (ADULT) [facility] Start: 1976 Urine microalbumin profile DTaP,Tdap,Td Vaccine (1 - Tdap) [facility] Start: 1975 Anxiety Screening Anxiety Screening [facility] Start: 1975 Depression Screening Depression Screening [facility] Start: 1975 Hepatitis C screening Hepatitis C Screening [facility] Start: 1957 COVID-19 VACCINE (#1) COVID-19 VACCINE (#1) [facility] Start: 1957 Hepatitis C screening HEPATITIS C VIRUS SCREENING [facility] Start: 1957 Screening for osteoporosis DEXA SCAN DISCUSSION [facility] Start: 1957 Tetanus vaccination TETANUS [facility] Alanine aminotransfe rase [Enzymatic activity/volume] in Serum or Plasma by With P-5'-P [facility] [id number]-[id number] n [Mass/volume] in Unspecified specimen [facility] Apolipoprotein A-I [Mass/volume] in Serum or Plasma [facility] Aspartate aminotransferase [Enzymatic activity/volume] in Serum or Plasma by With P-5'-P [facility] Assessment using assessment scale [facility] Bilirubin.total [Mass/volume] in Serum or Plasma [facility] Blood test [facility] Cholesterol [Mass/vo lume] in Serum or Plasma [facility] Gamma glutamyl transferase [Enzymatic activity/volume] in Serum or Plasma [facility] Glucose [Mass/volume ] in Serum or Plasma [facility] Haptoglobin [Mass/vo lume] in Serum or Plasma [facility] Hepatitis C virus measurement [facility] End: 09-06-2024 Standard ECG ECG ECG STAT One Time for 1 Occurrences starting 09/06/2024 until 09/06/2024 [facility] Comment on above: One Time for 1 Occurrences starting 08/14 until 09/06/2024 Standard ECG ECG ECG STAT 09/23/2024 8:15 AM EDT [facility] Triglyceride [Mass/volume] in Serum or Plasma [facility] Work Phone: [facility] Work Phone: [facility] Work Phone: [facility] Work Phone: [facility] Work Phone: [facility] Work Phone: [facility] Work Phone: [facility] Work Phone: [facility] Immunizations Immunization Date Immunization Notes Care Provider Fa cilibriana 07-13-2017 tetanus toxoid, reduced diphtheria toxoid, and acellular pertussis vaccine, adsorbed Cynthia Fast DO Work Phone: [facility]; [facility] Work Phone: Payers Date Payer Category Payer Self-pay 2023 Medicare (Managed Care) [id number]. [id number] 2022 Medicare [id number] 2022 Unknown [id number] 1955 Unknown [id number] 2.16.840.1.762651.3.579.2. 1069 1955 Unknown [id number] 2.16.840.1.718949.3.579.2. 716 1955 Unknown [id number] 2.16.840.1.977871.3.579.2. 479 1955 Unknown [id number] 2.16.840.1.956769.3.579.2. 1248 1955 Unknown [id number] 2.16.840.1.580452.3.579.2. 1248 1957 Unknown [id number] 2..840.1.938730.3.579.2. 1247 1957 Unknown [id number] 2.16.840.1.409102.3.579.2. 1248 1957 Unknown [id number] 2.840.1.521420.3.579.2. 124 1955 Unknown [id number] 2.840.1.260920.3.579.2. 1248 Unknown [facility] [place] [facility] Adv Unknown [id number] Unknown [id number] 2.840.1.331930.3.579.2. 462 Unknown [id number] 2.840.1.371558.3.579.2. 462 Unknown [id number] 2.840.1.995430.3.579.2. 462 Unknown [id number] 2.840.1.357133.3.579.2. 462 Unknown [id number] 2.840.1.905005.3.579.2. 462 Unknown [id number] 2.840.1.044143.3.579.2. 462 Unknown [id number] 2.840.1.909027.3.579.2. 462 Unknown [id number] 2.840.1.690586.3.579.2. 462 Unknown [id number] 2.840.1.794274.3.579.2. 462 Unknown [id number] 2.16840.1.709222.3.579.2. 1149 Unknown [id number] 2.16840.1.579377.3.579.2. 1149 Unknown [id number] 2.840.1.765840.3.579.2. 1149 Unknown [id number] 2.16840.1.084127.3.579.2. 1149 Unknown [id number] 2.16.840.1.721123.3.579.2. 1149 Unknown [id number] 2.16.840.1.261866.3.579.2. 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 [facility] Work Phone: Comment on above: moved from [facility]/ 2 children and 2 grandchildren Start: 1955 Sex Assigned At Female W [facility] Start: 09-03-2023 [facility] tobacco [facility] Start: 09-03-2023 Tobacco use and exposure Smokeless tobacco non-user [facility] Start: 09-03-2023 End: 10-18-2024 Alcoholic beverage intake Ex-drinker (finding) [facility] Start: 09-03-2023 End: 09-23-2024 Tobacco use panel [facility] Start: 1955 Sex assigned at Not on file [facility] smoking consumption unknown [facility] Start: 11-07-2023 Gender identity Identifies as female gender (finding) [facility] Start: 08-25-2024 End: 10-26-2024 Tobacco smoking status [facility] Never smoker [facility] Start: 08-26-2024 End: 10-27-2024 Sex Female (finding) [facility] Within the past 12 months, did you worry that your food would run out before you got money to buy more? No [facility] Start: 10-11-2024 Sexual orientation Heterosexual (tye langley) [facility] Medical Equipment Procedure Code Equipment Code Equipment Origin al Text Equipment Identifier Dates fluorescein ophthalmic 1 mg strip [id number] Start: 08-25-2022 Functional Status Date Assessment Result Facility 09-23-2024 Are you deaf, or do you have serious difficulty hearing No 09/23/2024 3:54 PM Jacqui Roberts, SHAYNA No [facility] 09-23-2024 Are you blind, or do you have serious difficulty seeing, even when wearing glasses No 09/23/2024 3:54 PM EDT Jacqui Licona RN No [facility] 09-23-2024 Do you have serious difficulty walking or climbing stairs No 09/23/2024 3:54 PM EDT Jacqui Licona RN No [facility] 09-23-2024 Do you have difficul ty dressing or bathing No 09/23/2024 3:54 PM EDT Jacqui Licona RN No [facility] 09-23-2024 Because of a physica l, mental, or emotional condition, do you have difficulty doing errands alone such as visiting a physician's office or shopping No 09/23/2024 3:54 PM EDT Jacqui Licona RN No [facility] Mental Status Date Assessment Result Facility 09-23-2024 Because of a physica l, mental, or emotional condition, do you have serious difficulty concentrating, remembering, or making decisions No 09/23/2024 3:54 PM EDT Jacqui Licona RN No [facility] Clinical Notes 08-25-2022 to 01-04-2025 Note Date & Type Note Facility 01-04-2025 Radiology Diagnostic study note [facility] Imaging Services [address] [place] [id number] ABD Limited w/ Elastography MR#: [id number] Acct: [id number] Name: GAURI GOLDMAN RENETTA Rep #: [id number] : 1955 F 69 From: Benito Morales MD PCP: Dr. Cynthia Sun DO Status: REG CLI Study:ABD Limited w/ Elastography Date of Exa m: 01/04/25 Exam# [id number] Ordering Dr: Jeannie Sun ra, DO PROCEDURE: ABD LIMITED W/ ELASTOGRAPHY REASON FOR EXAM: FATTY LIVER COMPARISON: None. TECHNIQUE: Right upper quadrant abdominal ultrasound. [employer] ElastQ Imaging shear wave elastography for non-invasive assessment of liver tissue stiffness. [employer] EPIQ Elite. FINDINGS: LIVER: Size: Unremarkable Length: 13.6 cm Echotexture: Diffusely echogenic suggesting fatty infiltration Contour: Normal Lesions: None identified Elastography: EQI Med: 15.2 kPa EQI Med Jose F: 2.24 m/s IQR/Med: 13 %* GALLBLADDER: Small polyp measuring 4 mm x 5 mm x 2 mm is seen. The gallbladder wall is not thickened. COMMON BILE DUCT: Normal measuring 3.1. PANCREAS: Normal Visualized portions of the right kidney are unremarkable. No right upper quadrant ascites. US/ABD Limited w/ Elastography IMPRESSION: SEVERE HEPATIC FIBROSIS / CIRRHOSIS Fatty infiltration of the liver. Reference Values: SRU <1.37 m/s (5.7kPa): No to mild fibrosis 1.37 m/s - 2.2 m/s: Moderate to severe fibrosis >2.2 m/s (15kPa): Significant fibrosis / cirrhosis METAVIR Score F2 or higher: 1.34 m/s (5.7kPa) F3 or higher: 1.55 m/s (7.3kPa) F4: 1.80 m/s (10kPa) * If the IQR/Med is >30%, the variance in the measurements is a large and the accuracy of the measurement may be in question. Reading Location: [id number] CC: Dr. Cynthia Sun DO ~ Slitting Machine Feeder: Signed [facility] 10-26-2024 Evaluation note Diagnosis Onset Date Resolution Colon polyps acute October 26, 2024 8:27am GERD (gastroesophageal reflux disease) acute October 26, 2024 8:27am RUQ abdominal pain acute October 26, 2024 8:27am [facility] Work Phone: [phone] Evaluation + Plan note* Assessment & Plan Note - Greg Romero CNP - 10/18/2024 9:27 AM EDTAssociated Problem(s): Palpitations Improvement since starting BB. Reports upcoming holter ordered by PCP--instructed to call if any abnormalities. [id number] Miscellaneous Notes* Assessment & Plan Note - Greg Romero CNP - 10/18/2024 9:27 AM EDTAssociated Problem(s): Palpitations Improvement since starting BB. Reports upcoming holter ordered by PCP--instructed to call if any abnormalities. * Assessment & Plan Note - Greg Romero CNP - 10/18/2024 9:24 AM EDT Associated Problem(s): Hospital discharge follow-up Recent hospitalization for CP--[facility] with patent cors. Okay to stop ASA. Risk factor modification. Denies recurrent CP. F/up PRN. Routine f/up with PCP encouraged. documented in this encounterUNC HEALTH [id number] Evaluation + Plan note* Assessment & Plan Note - Greg Romero CNP - 10/18/2024 9:24 AM EDT Associated Problem(s): Hospital discharge follow-up Recent hospitalization for CP--[facility] with patent cors. Okay to stop ASA. Risk factor modification. Denies recurrent CP. F/up PRN. Routine f/up with PCP encouraged. [id number] History of Present illness Narrative* Greg Romero CNP - 10/18/2024 9:00 AM EDT Primary care provider: Cynthia Sun DO (General) Chief Complaint Patient presents with Follow-up HPI: Gauri Goldman is a 69 y.o. female with PMH of HTN presenting today for hospital f/up. Hospitalized last month with CP--had abnormal stress test at OSH-- subsequent [facility] with patent cors--no intervention. Denies recurrent CP. Denies dizziness, lightheadedness or syncope. Denies dyspnea or LE edema. Previously noted palpitations that improved since starting BB. Upcoming holter ordered by PCP. Previous CV Testing: INVASIVE CARDIOVASCULAR PROCEDURE 09/26/2024 (Final) Conclusion Patent coronaries Optimize medical management Results for orders placed during the hospital encounter of 09/23/24 ECHOCARDIOGRAM 09/24/2024 (Final) Interpretation Summary No prior study at this institution for comparison. Left Ventricle: Chamber size is normal. Increased wall thickness. Mild concentric hypertrophy. Normal global systolic function. Regional wall motion is normal. Ejection fraction is normal (55 - 60%).Diastolic function is normal. Right Ventricle: Chamber size is moderately enlarged. Systolic function is normal.incomplete TR jetto assess RVSP Left Atrium: Chamber size is normal. Aortic Valve: Trileaflet valve. Leaflet mobility is normal. No regurgitation. No stenosis. Mitral Valve: Normal appearing leaflets. Leaflet mobility is normal. No regurgitation. No valve stenosis. Tricuspid Valve: Normal leaflets. Leaflet mobility is normal. Trace regurgitation. No stenosis. Past Medical History: Diagnosis Date Essential hypertension, benign Fatty liver Gallbladder polyp Review of Systems Cardiovascular: Positive for palpitations. Negative for chest pain, dyspnea on exertion and leg swelling. Current Outpatient Medications: Acetaminophen 325 MG tablet, Take 1 tablet by mouth every 6 hours as needed for Mild Pain., Disp: ,Rfl: calcium carbonate 500 MG Chew Tab tablet, Chew 1 tablet as needed., Disp: , Rfl: Loratadine 10 MG tablet, Take 1 tablet by mouth daily., Disp: , Rfl: Magnesium 400 MG capsule, Take 400 mg by mouth daily., Disp: , Rfl: Metoprolol succinate 25 MG tablet XL, Take 0.5 tablets by mouth daily., Disp: 45 tablet, Rfl: 3 Vitamin D3 125 MCG (5000 UT) capsule, Take 1 capsule by mouth daily., Disp: , Rfl: Allergies Allergen Reactions Not Able To Determine Nausea and Vomiting, Itchy Eyes, Abdominal Discomfort, Headache, Hypertensionand Dyspepsia Food and sulfite intolerance Past Medical History: Diagnosis Date Essential hypertension, benign Fatty liver Gallbladder polyp Past Surgical History: Procedure Laterality Date HYSTERECTOMY 2014 COLONOSCOPY DIAGNOSTIC Family History Problem Relation Age of Onset Multiple Sclerosis Brother Social History Socioeconomic History Marital status: Spouse name: Not on file Number of children: Not on file Years of education: Not on file Highest education level: Not on file Occupational History Not on file Tobacco Use Smoking status: Never Smokeless tobacco: Never Vaping Use Vaping status: Never Used Substance and Sexual Activity Alcohol use: Not Currently Drug use: Never Sexual activity: Not on file Other Topics Concern Not on file Social History Narrative Not on file Social Drivers of Health Financial Resource Strain: Not on file Food Insecurity: No Food Insecurity (09/23/2024) NCSS - Food Insecurity Worried About Running Out of Food in the Last Year: No Ran Out of Food in the Last Year: No Transportation Needs: No Transportation Needs (09/23/2024) NCSS - Transportation Lack of Transportation: No Physical Activity: Not on file Stress: Not on file Social Connections: Not on file Personal Safety: Not At Risk (09/23/2024) NCSS - Interpersonal Safety Feels Physically and Emotionally Safe: Yes Physically Hurt by Someone: No Humiliated or Emotionally Abused by Someone: No Housing Stability: Not At Risk (09/23/2024) NCSS - Housing/Utilities Has Housing: Yes Worried About Losing Housing: No Unable to Get Utilities: No The following historical elements were reviewed by a provider in the specific IHIS finn and updated as appropriate: Problems . On physcial exam today, the vital signs are as follows: BP 124/76 Pulse 70 Ht 1.549 m (5' 1) Wt 59 kg (130 lb) SpO2 98% BMI 24.56 kg/m Smoking Status Never Body mass index is 24.56 kg/m .. Physical Exam Constitutional: Appearance: Normal appearance. Cardiovascular: Rate and Rhythm: Normal rate and regular rhythm. Pulses: Normal pulses. Heart sounds: Normal heart sounds. Pulmonary: Effort: Pulmonary effort is normal. Breath sounds: Normal breath sounds. Musculoskeletal: Right lower leg: No edema. Left lower leg: No edema. Neurological: Mental Status: She is alert. Relevant diagnostic data includes the following: Lab Results Component Value Date CHOLESTEROL 156 09/24/2024 TRIG 81 09/24/2024 HDL 57 09/24/2024 LDLCALC 83 09/24/2024 Lab Results Component Value Date SODIUM 138 09/26/2024 POTASSIUM 4.4 09/26/2024 CHLORIDE 106 09/26/2024 CO2 27 09/26/2024 BUN 16 09/26/2024 CREATSERUM 0.55 (L) 09/26/2024 GLUCOSE 98 09/26/2024 Lab Results Component Value Date HGBA1C 5.7 (H) 09/24/2024 In summary, Ms. Goldman is managed today for the following issues: Hospital discharge follow-up Recent hospitalization for CP--[facility] with patent cors. Okay to stop ASA. Risk factor modification. Denies recurrent CP. F/up PRN. Routine f/up with PCP encouraged. Palpitations Improvement since starting BB. Reports upcoming holter ordered by PCP--instructed to call if any abnormalities. I have ordered the following: Orders Placed This Encounter Metoprolol succinate 25 MG tablet XL We will plan on Return if symptoms worsen or fail to improve., sooner if needed. If I can be of anyfurther assistance, please do not hesitate to contact me. Sincerely, Greg Romero CNP [facility] documented in this encounterUNC HEALTH [id number] Instructions* Patient Instructions* Shelley Stokes - 10/18/2024 9:00 AM EDT Images from the original note were not included. documented in this encounterUNC HEALTH [id number] NoteHNO ID: [id number] Author: SHILPA LOMAS Research Coordinator Service: ? Author Type: Research Type: Progress Notes Filed: 10/02/2024 10:29 Note Text: [facility] Brain Study (BS): Biomarkers and Predictors of Neurological Disorders Patient/Research Subject Name: Gauri Goldman Research Study IRB #: [id number] [facility] Brain Study ([facility]): Neurological Disorders Biorepository and Data Registry Verbal Confirmation of Continued Consent Occurred On: October 02, 2024 at 08:00 Participant has previously consented on the most updated version of the informed consent, version 3.6, dated 07/13/2023 and IRB approved on 02/20/2024. Participant arrived for study visit today and verbally reconfirmed their understanding and consent to participate in the study. Shilpa Lomas, Research CoordinatorHolmes County [facility]03-23-2025 History of Present illness Narrative* Shilpa Lomas Research Coordinator - 10/02/2024 10:28 AM EDT [facility] Brain Study (BS): Biomarkers and Predictors of Neurological Disorders Patient/Research Subject Name: Gauri Goldman Research Study IRB #: [id number] [facility] Brain Study ([facility]): Neurological Disorders Biorepository and Data Registry Verbal Confirmation of Continued Consent Occurred On: October 02, 2024 at 08:00 Participant has previously consented on the most updated version of the informed consent, version 3.6, dated 07/13/2023 and IRB approved on 02/20/2024. Participant arrived for study visit today and verbally reconfirmed their understanding and consent to participate in the study. Shilpa Lomas Research Luis F documented in this encounterMansfield Hospital03-23-2025 NoteHNO ID: [id number] Author: SHILPA LOMAS Research Coordinator Service: ? Author Type: Research Type: Progress Notes Filed: 10/02/2024 10:10 Note Text: DATE:October 02, 2024 PT. NAME: Gauri Goldman CC#: [id number] IRB #: [id number] A. PROTOCOL: [facility] Brain Study Cogeneration Operator: Jarrod Vazquez MD, , Clay Arvizu MD, [facility] training personnel supervisor for study related questions: Therese Marx Subject continues to give consent for participation and for procedures related to study YES. Were there changes made to the informed consent since the last visit? N/A. If yes, were changes reviewed and explained to subject? N/A Was a new copy of the informed consent signed, placed in the chart, placed in the study file and was a copy given to the patient? N/A Patient Identification was verified by asking the patient's Name and Date Of : YES Time: 08:17 Blood drawn with vacutainer and labs drawn per protocol. Butterfly removed after blood draw and secured with sterile gauze. Patient tolerated procedure well. Mac TuckerHolmes County [facility]03-23-2025 History of Present illness Narrative* Shilpa Lomas Research Coordinator - 10/02/2024 10:10 AM EDT DATE:October 02, 2024 PT. NAME: Gauri Goldman [facility]#: [id number] IRB #: [id number] A. PROTOCOL: [facility] Brain Study Cogeneration Operator: Jarrod Vazquez MD, , Clay Arvizu MD, [facility] training personnel supervisor for study related questions: Therese Marx Subject continues to give consent for participation and for procedures related to study YES. Were there changes made to the informed consent since the last visit? N/A. If yes, were changes reviewed and explained to subject? N/A Was a new copy of the informed consent signed, placed in the chart, placed in the study file and was a copy given to the patient? N/A Patient Identification was verified by asking the patient's Name and Date Of : YES Time: 08:17 Blood drawn with vacutainer and labs drawn per protocol. Butterfly removed after blood draw and secured with sterile gauze. Patient tolerated procedure well. Shilpa Lomas Research Coordinator documented in this encounterMansfield Hospital03-23-2025 History of Present illness Narrative* Suzie Olivier APRN.MOLD MAINTENANCE TECHNICIAN - 10/02/2024 9:30 AM EDT DATE: October 02, 2024 PT. NAME: Gauri Goldman [facility]#: [id number] IRB -[id number]. [facility] Brain Study (BS) Cogeneration Operator: Jarrod Vazquez MD, , Clay Arvizu MD, Internet Ecommerce Specialist: Therese Marx and Email:[email or web address] Time: 912 EKG/ECG was performed on patient. Patient tolerated procedure well. BP: 127/24 BP Site: left arm BP Position: sitting Cuff size: regular Pulse: 76 Resp: 16 SPO2: 99% Weight: 140 lbs Height: 5'1 Have you received the Shingles Vaccine? Yes Age of first vaccination? 68 Year first vaccination was administered: 2023 Number of subsequent vaccinations: 1 Result of Physical Exam Body System Eyes: Normal Ears, Nose, Mouth and Throat: Normal Cardiovascular: Normal Respiratory: Normal Musculoskeletal: Normal Integumentary: Normal Handedness: Right hand Results of Mental Status Assessment Mental Assessments Attention: Abnormality Present: No Memory Working Memory: Abnormality Present: No Recent (Episodic) Memory: Abnormality Present: No Remote (Semantic) Memory: Abnormality Present: No Language Spontaneous Speech: Abnormality Present: No Comprehension: Abnormality Present: No Naming: Abnormality Present: No Repetition: Abnormality Present: No Reading: Abnormality Present: No Affect: Abnormality Present: No Craninal Nerve Assessment Visual Finn: Normal EOM: Normal Nystagmus: Physiologic Pupils: Equal and reactive Ptosis: Absent Trigeminal: Normal CN VII: Normal CN VIII: Normal CN IX: Normal CN X: Normal CN XI: Normal CN XII: Normal Assessment of Motor and Bulk and Tones Motor Assessments Muscle bulk-global: Normal Muscle tone-global: Normal Motor Strength Assessment Shoulder flexion: Right 5 Left 5 Shoulder external rotation: Right 5 Left 5 Shoulder abduction: Right 5 Left 5 Shoulder adduction: Right 5 Left 5 Elbow flexion: Right 5 Left 5 Elbow extension: Right 5 Left 5 Wrist flexion: Right 5 Left 5 Wrist extension: Right 5 Left 5 Finger flexion/car porter: Right 5 Left 5 Flexor pollicis longus: Right 5 Left 5 Abductor pollicis brevis: Right 5 Left 5 Hip flexion: Right 5 Left 5 Hip extension: Right 5 Left 5 Hip abduction: Right 5 Left 5 Hip adduction: Right 5 Left 5 Knee flexion: Right 5 Left 5 Knee extension: Right 5 Left 5 Ankle eversion: Right 5 Left 5 Ankle inversion: Right 5 Left 5 Ankle plantar flexion: Right 5 Left 5 Ankle dorsiflexion: Right 5 Left 5 Extensor halluces longus: Right 5 Left 5 Flexor digitorum longus: Right 5 Left 5 Reflexes - MRC Grading Method Triceps: Right 2+ Left 2+ Biceps: Right 2+ Left 2+ Brachioradialis: Right 2+ Left 2+ Patellar: Right 2+ Left 2+ Achilles: Right 2+ Left 2+ Plantar: Right Downgoing Left Downgoing Weakness?: No Tremor: No Cerebellar/Coordination Assessment Riuloo-lm-Iywo: Abnormality present: No, Kffu-lm-Mcfy: Abnormality present: No, Finger Tapping - Abnormality present: No Fist Open/Close - Abnormality present: No Pronation/Supination of the Hand - Abnormality present: No Toe Tapping - Abnormality present: No Heel Tapping - Abnormality present: No Gait Gait-global assessment: Normal Toe Walk: Normal Heel Walk: Normal Tandem Walk: Normal Romberg: Negative (pass) Sensory/Sensation Sensory System-globlal assessment: Normal Suzie Olivier APRN.GENOVEVA documented in this encounterMansfield Hospital03-23-2025 NoteHNO ID: [id number] Author: SUZIE OLIVIER APRN.CNP Service: ? Author Type: Nurse Practitioner Type: Progress Notes Filed: 10/02/2024 09:58 Note Text: DATE: October 02, 2024 PT. NAME: Gauri Goldman [facility]#: [id number] [facility] [id number]. [facility] Brain Study (BS) Cogeneration Operator: Jarrod Vazquez MD, , Clay Arvizu MD, Internet Ecommerce Specialist: Therese Marx and Email:[email or web address] Time: 912 EKG/ECG was performed on patient. Patient tolerated procedure well. BP: 127/24 BP Site: left arm BP Position: sitting Cuff size: regular Pulse: 76 Resp: 16 SPO2: 99% Weight: 140 lbs Height: 5'1 Have you received the Shingles Vaccine? Yes Age of first vaccination? 68 Year first vaccination was administered: 2023 Number of subsequent vaccinations: 1 Result of Physical Exam Body System Eyes: Normal Ears, Nose, Mouth and Throat: Normal Cardiovascular: Normal Respiratory: Normal Musculoskeletal: Normal Integumentary: Normal Handedness: Right hand Results of Mental Status Assessment Mental Assessments Attention: Abnormality Present: No Memory Working Memory: Abnormality Present: No Recent (Episodic) Memory: Abnormality Present: No Remote (Semantic) Memory: Abnormality Present: No Language Spontaneous Speech: Abnormality Present: No Comprehension: Abnormality Present: No Naming: Abnormality Present: No Repetition: Abnormality Present: No Reading: Abnormality Present: No Affect: Abnormality Present: No Craninal Nerve Assessment Visual Finn: Normal EOM: Normal Nystagmus: Physiologic Pupils: Equal and reactive Ptosis: Absent Trigeminal: Normal CN VII: Normal CN VIII: Normal CN IX: Normal CN X: Normal CN XI: Normal CN XII: Normal Assessment of Motor and Bulk and Tones Motor Assessments Muscle bulk-global: Normal Muscle tone-global: Normal Motor Strength Assessment Shoulder flexion: Right 5 Left 5 Shoulder external rotation: Right 5 Left 5 Shoulder abduction: Right 5 Left 5 Shoulder adduction: Right 5 Left 5 Elbow flexion: Right 5 Left 5 Elbow extension: Right 5 Left 5 Wrist flexion: Right 5 Left 5 Wrist extension: Right 5 Left 5 Finger flexion/car porter: Right 5 Left 5 Flexor pollicis longus: Right 5 Left 5 Abductor pollicis brevis: Right 5 Left 5 Hip flexion: Right 5 Left 5 Hip extension: Right 5 Left 5 Hip abduction: Right 5 Left 5 Hip adduction: Right 5 Left 5 Knee flexion: Right 5 Left 5 Knee extension: Right 5 Left 5 Ankle eversion: Right 5 Left 5 Ankle inversion: Right 5 Left 5 Ankle plantar flexion: Right 5 Left 5 Ankle dorsiflexion: Right 5 Left 5 Extensor halluces longus: Right 5 Left 5 Flexor digitorum longus: Right 5 Left 5 Reflexes - MRC Grading Method Triceps: Right 2+ Left 2+ Biceps: Right 2+ Left 2+ Brachioradialis: Right 2+ Left 2+ Patellar: Right 2+ Left 2+ Achilles: Right 2+ Left 2+ Plantar: Right Downgoing Left Downgoing Weakness?: No Tremor: No Cerebellar/Coordination Assessment Cicryx-gm-Sxij: Abnormality present: No, Jqri-lx-Iiiv: Abnormality present: No, Finger Tapping - Abnormality present: No Fist Open/Close - Abnormality present: No Pronation/Supination of the Hand - Abnormality present: No Toe Tapping - Abnormality present: No Heel Tapping - Abnormality present: No Gait Gait-global assessment: Normal Toe Walk: Normal Heel Walk: Normal Tandem Walk: Normal Romberg: Negative (pass) Sensory/Sensation Sensory System-globlal assessment: Normal Suzie Oliiver APRN.CNPHolmes County [facility]03-17-2025 Nurse Note* Nursing Notes - NESTOR Manuel - 09/26/2024 5:21 PM EDT Follow up appointment requested with [facility]. Office will contact patient to schedule. [id number] Miscellaneous Notes* Nursing Notes - NESTOR Manuel - 09/26/2024 5:21 PM EDT Follow up appointment requested with [facility]. Office will contact patient to schedule. * Plan of Care - JOSSELIN Wright - 09/26/2024 3:52 PM EDT Recent Results (from the past 3650 days) INVASIVE CARDIOVASCULAR PROCEDURE 09/26/2024 (Final) Conclusion Patent coronaries Optimize medical management No further inpt recommendations Cardiology will sign off Ongoing work-up recommended for sources of non cardiac chest pain * Nursing Notes - Dalila Matthew RN - 09/26/2024 3:46 PM EDT Report called at: 1521 Time of arrival: 1540 Amount of air in band: 10mls Time air can be removed (per report from cath lab radiological technologist): 1600 Site Check Time/Person: 1540 with [place] Regulator Nurse *Post Cath Vitals charted in vitals flowsheet* Hematoma: No Bleeding: No Air Removal Times & Assessment: 1602: 2mls removed. No hematoma present. 1618: 2mls removed. No hematoma present. 1645: 2mls removed. No hematoma present. 1700: 2mls removed. No hematoma present. 1740: 2mls removed. No hematoma present. Vasc band removed at this time. No bleeding or hematoma noted. Patient educated on post cath restrictions. * Significant Event - JOSSELIN Cancino - 09/26/2024 9:11 AM EDT Plan for [facility] to evaluate abnormal stress test. R/A/B discussed. She is agreeable to proceed. NPO after midnight. Labs reviewed. Full code. * Significant Event - JOSSELIN Silverio - 09/25/2024 9:02 AM EDT Plan for [facility] 09/26/24 for abnormal stress test and typical anginal symptoms. Risks versus benefits of LHC discussed with patient, who states understanding and agreeable to proceed. Further recs pending C. TTE completed this admission LVEF preserved, 55-60%, no SWMA. * Nursing Notes - Melani Trejo RN - 09/23/2024 8:26 PM EDT Patient resting in bed. Respirations even and unlabored. Aox4. Room air. Denies pain at this time. Heparin gtt infusing without difficulty. Verified rate and dose. Patient denies needing anything at this time. Assessment completed. Call light and bedside table within reach. * Nursing Notes - Jacqui Licona RN - 09/23/2024 6:19 PM EDT nitroglycerin paste removed at this time. documented in this encounterUNC HEALTH [id number] Plan of care note* Plan of Care - JOSSELIN Wright - 09/26/2024 3:52 PM EDT Recent Results (from the past 3650 days) INVASIVE CARDIOVASCULAR PROCEDURE 09/26/2024 (Final) Conclusion Patent coronaries Optimize medical management No further inpt recommendations Cardiology will sign off Ongoing work-up recommended for sources of non cardiac chest pain [employer] Work Phone: [phone]) 261-684303-17-2025 Nurse Note* Nursing Notes - Dalila Matthew RN - 09/26/2024 3:46 PM EDT Report called at: 1521 Time of arrival: 1540 Amount of air in band: 10mls Time air can be removed (per report from cath lab radiological technologist): 1600 Site Check Time/Person: 1540 with [place] Regulator Nurse *Post Cath Vitals charted in vitals flowsheet* Hematoma: No Bleeding: No Air Removal Times & Assessment: 1602: 2mls removed. No hematoma present. 1618: 2mls removed. No hematoma present. 1645: 2mls removed. No hematoma present. 1700: 2mls removed. No hematoma present. 1740: 2mls removed. No hematoma present. Vasc band removed at this time. No bleeding or hematoma noted. Patient educated on post cath restrictions. [id number] History of Present illness Narrative* CHRIS Kahn - 09/26/2024 3:34 PM EDT 09/26/24 1533 Referral Information Arrived From emergency department;critical access hospital;home or self-care ([facility] ED) Final Discharge Planning Discharge Disposition Home Plan Plan Discharge home and follow up outpatient Patient/Family In Agreement With Plan yes Transport Request Mode of Transfer Private Vehicle * JOSSELIN Ramos - 09/25/2024 11:39 AM EDT [facility] Medicine Daily Progress Note Patient: Gauri Goldman, 1955, [id number] Physician: JOSSELIN Ramos Length of Stay: 0 Assessment/Plan: Gauri Goldman is a 69-year-old female with H PACs and occasional HTN (takes losartan PRN at home) presented to [facility] on 09/23/2024 with complaints of chest discomfort and recent outpatient abnormal stress test. She was hospitalized for further workup/treatment. Chest pain: with associated left arm discomfort. 09/22/2024 outpatient exercise stress test positive for exercise induced EKG changes of ischemia, positive for exercise induced chest pain. No evidence of ischemia or infarct on nuclear imaging. Trop negative. EKG without acute ST changes. TTE with 55-60%, no wall motion abnormalities. Okay to stop heparin gtt per Cardiology. On ASA, BB. TTE pending. [facility] on Tuesday 09/26. [facility] APPRENT[facility] at [place]. 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 Takes losartan PRN at home. Has PRN IVhydralazine DVT prophylaxis: lovenox FEN/GI: regular. Code Status: Full code Dispo: Observation, anticipate 1-2 more days. Anticipate discharge Home JOSSELIN Ramos Subjective/Interval History: Seen bedside, sitting up in chair. Had uneventful night. Complaining of left shoulder pain secondary to arthritis otherwise has no complaints. No chest pain, no shortness a breath Objective: Temp: [97.6 F (36.4 C)-98.5 F (36.9 C)] 97.8 F (36.6 C) Pulse (Heart Rate): [68-81] 69 Resp Rate: [16-19] 19 BP: (109-145)/(66-76) 112/66 O2 Sat (%): [90 %-96 %] 94 % Weight: [59.2 kg (130 lb 8.2 oz)] 59.2 kg (130 lb 8.2 oz) Oxygen Therapy O2 Sat (%): 94 % O2 Device: room air No intake/output data recorded. Vitals and lab work reviewed General: 69-year-old who appears stated age and in no acute distress Skin:Normal color, no rash, no lesions. HEENT:Pupils equal, round and reactive. Cardiovascular:Normal S1 & S2, no rubs, murmurs or gallops. No JVD. No edema. Pulse regular. Lungs: LCTA. On room air Abdomen:Soft, non-tender, no rigidity. Extremities:No deformity, no tenderness, no joint clubbing. Neurological:Normal cognition and motor skills. Rest of the physical exam is non contributory. Data Review: WBC/Hgb/Hct/Plts: 5.3/12.5/37.5/196 (09/24 2220) WBC/Hgb/Hct/Plts: 5.3/12.5/37.5/196 (09/24 2220) Lab Results Component Value Date ALT 19 09/06/2024 AST 23 09/06/2024 ALKPHOS 80 09/06/2024 BILITOTAL 0.4 09/06/2024 * JOSSELIN Ramos - 09/24/2024 12:42 PM EDT [facility] Medicine Daily Progress Note Patient: Gauri Goldman, 1955, [id number] Physician: JOSSELIN Ramos Length of Stay: 0 Assessment/Plan: Gauri Goldman is a 69-year-old female with H PACs and occasional HTN (takes losartan PRN at home) presented to [facility] on 09/23/2024 with complaints of chest discomfort and recent outpatient abnormal stress test. She was hospitalized for further workup/treatment. Chest pain: with associated left arm discomfort. 09/22/2024 outpatient exercise stress test positive for exercise induced EKG changes of ischemia, positive for exercise induced chest pain. No evidence of ischemia or infarct on nuclear imaging. Trop negative. EKG without acute ST changes. On heparingtt, ASA, BB. TTE pending. [facility] on Tuesday 09/26. 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 Takes losartan PRN at home. Has PRN IVhydralazine DVT prophylaxis: heparin gtt FEN/GI: regular. Code Status: Full code Dispo: Observation, anticipate 1-2 more days. Anticipate discharge Home Maryana Torres, ECONOMIC HISTORY TEACHER-MOLD MAINTENANCE TECHNICIAN Subjective/Interval History: Seen bedside. Had an uneventful night. Feeling better today. No chest pain, no shortness a breath. Left arm discomfort resolved Objective: Temp: [97.8 F (36.6 C)-98.3 F (36.8 C)] 98.3 F (36.8 C) Pulse (Heart Rate): [71-105] 71 Resp Rate: [16-18] 18 BP: (111-151)/(70-90) 132/86 O2 Sat (%): [93 %-96 %] 96 % Weight: [57.3 kg (126 lb 5.2 oz)-59.5 kg (131 lb 2.8 oz)] 59.5 kg (131 lb 2.8 oz) Oxygen Therapy O2 Sat (%): 96 % O2 Device: room air No intake/output data recorded. Vitals and lab work reviewed General: 69-year-old who appears stated age and in no acute distress Skin:Normal color, no rash, no lesions. HEENT:Pupils equal, round and reactive. Cardiovascular:Normal S1 & S2, no rubs, murmurs or gallops. No JVD. No edema. Pulse regular. Lungs: LCTA. On room air Abdomen:Soft, non-tender, no rigidity. Extremities:No deformity, no tenderness, no joint clubbing. Neurological:Normal cognition and motor skills. Rest of the physical exam is non contributory. Data Review: WBC/Hgb/Hct/Plts: 7.0/12.3/37.5/208 (09/24 156) Bun/Creat/Cl/CO2/Glucose: 17/0.52/106/23/91 (09/24 156) Ptt/Pt/Inr: 56.3/11.4/1.0 (09/24 156) WBC/Hgb/Hct/Plts: 7.0/12.3/37.5/208 (09/24 156) Bun/Creat/Cl/CO2/Glucose: 17/0.52/106/23/91 (09/24 156) Ptt/Pt/Inr: 56.3/11.4/1.0 (09/24 156) Na/K+/Phos/Mg/Ca: 138/3.9/--/--/9.1 (09/24 156) Lab Results Component Value Date ALT 19 09/06/2024 AST 23 09/06/2024 ALKPHOS 80 09/06/2024 BILITOTAL 0.4 09/06/2024 * Barber Everett RN - 09/24/2024 10:53 AM EDT Met with alert and oriented patient. Agreeable to assessment. Patient is from home alone. Patient is independent with ADL's, is able to drive self. Patient is able to afford medications, and is able to meet basic needs of living. Patient denies use of DME or home oxygen. Patient denies any SDOH issues. Patient reports she has called her insurance and has arranged a will call transportation ride that will provide transportation home/to car if able to drive and denies needs for discharge at this time. Patient was educated on availability and services provided by care management team and encouraged to reach out if needs arise, verbalized understanding. Steve Everett RN Care Management [facility] [phone] 09/24/24 1050 Referral Information Arrived From emergency department;home or self-care (Patient from home alone.) Readmission Information Was patient readmitted within 30 Days? No Information Source Information Source patient ;review of medical record Outpatient Providers Outpatient Providers Updated In IHIS No (Correctly listed.) Contact Information Supervisor Poultry Hatchery/SW Added to Care Team Yes This Art Installer is Primary Supervisor Poultry Hatchery/SW Yes Supervisor Poultry Hatchery Name Steve Everett RN Case Manager's Living Environment Lives With alone Living Arrangement and Set Up house Provides Primary Care For no one Primary Care Provided By self Support System Immediate family Able to Return to Prior Arrangements yes Functional Status Patient's Functional Status Prior To This Admission? Independent Are There Status Changes This Admission? No Changes Observed Since Admission? No Changes Observed Concerns With Patient Being Able To Care For Themselves At Discharge? No Employment/Financial Employed? Yes Financial Concerns none Insurance Medical Insurance Verified Yes Prescription Coverage Yes Pharmacy updated in IS No (Correctly listed.) Initial Discharge Planning Home Care Services (SUPERVISORY CBP OFFICER) No Home Therapies (SUPERVISORY CBP OFFICER) None DME (SUPERVISORY CBP OFFICER) None Patient Goal for Discharge Get better Expected Discharge Disposition Home Anticipated Services at Discharge Outpatient follow up Anticipated Changes Related to Illness none Transportation Available car;agency transportation Home Care Services (SUPERVISORY CBP OFFICER) Additional Home Care Services (SUPERVISORY CBP OFFICER) no Assessment/Concerns to be Addressed Concerns To Be Addressed no discharge needs identified documented in this encounterUNC HEALTH [id number] Hospital course Narrative* JOSSELIN Ramos - 09/26/2024 3:30 PM EDT Images from the original note were not included. Hospital Medicine Discharge Summary Patient Name: Gauri Goldman Patient Information: Age 69 y.o., 1955, Admission: 09/23/2024 by Gem Galvan MD Discharge: 09/26/2024 by JOSSELIN Ramos Discharge Diagnoses: Principal Problem: Chest pain Disposition: home Hospital Course Gauri Goldman is a 69-year-old female with H PACs and occasional HTN (takes losartan PRN at home) presented to [facility] on 09/23/2024 with complaints of chest discomfort and recent outpatient abnormal stress test. She was hospitalized for further workup/treatment. Chest pain: with associated left arm discomfort. 09/22/2024 outpatient exercise stress test positive for exercise induced EKG changes of ischemia, positive for exercise induced chest pain. No evidence of ischemia or infarct on nuclear imaging. Trop negative. EKG without acute ST changes. TTE with 55-60%, no wall motion abnormalities. 09/26/2024 [facility] with patent coronaries. Discharged on ASA, BB. 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 Takes losartan PRN at home. It has been my pleasure participating in this patient's care. Please contact me with any questions or concerns regarding her hospital stay. Sincerely, Maryana Torres APRN-[facility] Division of Hospital Medicine Time spent on discharge: 54 minutes Physical Exam: Vitals: 09/26/24 1151 BP: 120/75 Pulse: 71 Resp: 16 Temp: 98.1 F (36.7 C) SpO2: 95% Wt Readings from Last 1 Encounters: 09/26/24 59.5 kg (131 lb 2.8 oz) Vitals and lab work reviewed General: 69-year-old who appears stated age and in no acute distress Skin:Normal color, no rash, no lesions. HEENT:Pupils equal, round and reactive. Cardiovascular:Normal S1 & S2, no rubs, murmurs or gallops. No JVD. No edema. Pulse regular. Lungs: LCTA. On room air Abdomen:Soft, non-tender, no rigidity. Extremities:No deformity, no tenderness, no joint clubbing. Neurological:Normal cognition and motor skills. Rest of the physical exam is non contributory. CONSULTS DURING ADMISSION IP CONSULT TO CARDIOLOGY LABS AT TIME OF DISCHARGE Bun/Creat/Cl/CO2/Glucose: 16/0.55/106/27/98 (09/26 023) WBC/Hgb/Hct/Plts: 5.5/13.0/39.4/202 (09/26 023) Lab Results Component Value Date HGBA1C 5.7 (H) 09/24/2024 PATIENTS MEDICAL HOME AT DISCHARGE Cynthia Sun [address] [facility] [address] [facility] [id number] MEDICATIONS Medication List for when you go home START taking these medications Morning Afternoon Evening Bedtime As Needed aspirin 81 MG CHEW chewable tablet Chew 1 tablet daily. Last time this was given: 81 mg on September 26, 2024 7:43 AM Start taking on: September 27, 2024 1 tablet Metoprolol succinate 25 MG tablet XL Take 0.5 tablets by mouth daily. Commonly known as: TOPROL-XL Last time this was given: 12.5 mg on September 26, 2024 7:43 AM Start taking on: September 27, 2024 0.5 tablets CONTINUE taking these medications Morning Afternoon Evening Bedtime As Needed Acetaminophen 325 MG tablet Take 1 tablet by mouth every 6 hours as needed for Mild Pain. Commonly known as: TYLENOL 1 tablet calcium carbonate 500 MG CHEW tablet Chew 1 tablet as needed. Commonly known as: TUMS Last time this was given: 500 mg on September 26, 2024 7:43 AM 1 tablet Loratadine 10 MG TABS Take 1 tablet by mouth daily. Commonly known as: CLARITIN 1 tablet Losartan 50 MG TABS Take 1 tablet by mouth daily. Commonly known as: COZAAR Take 1 tablet by mouth daily. Magnesium 400 MG CAPS Take 400 mg by mouth daily. 400 mg Vitamin D3 125 MCG (5000 UT) CAPS Take 1 capsule by mouth daily. Commonly known as: VITAMIN D3 1 capsule Cynthia Sun, DO [address] [facility] [address] [facility] [id number] Follow up documented in this encounterUNC HEALTH [id number] Nurse procedure note* Significant Event - JOSSELIN Cancino - 09/26/2024 9:11 AM EDT Plan for LHC to evaluate abnormal stress test. R/A/B discussed. She is agreeable to proceed. NPO after midnight. Labs reviewed. Full code. [facility] [employer] Phone: [phone] 642-104103-16-2025 Nurse procedure note* Significant Event - JOSSELIN Silverio - 09/25/2024 9:02 AM EDT Plan for LHC 09/26/24 for abnormal stress test and typical anginal symptoms. Risks versus benefits of LHC discussed with patient, who states understanding and agreeable to proceed. Further recs pending LHC. TTE completed this admission LVEF preserved, 55-60%, no SWMA. [facility] [id number] Consult note* Marielena De La Rosa, ECONOMIC HISTORY TEACHER-MOLD MAINTENANCE TECHNICIAN - 09/24/2024 11:48 AM EDTAssociated Order(s): IP CONSULT TO CARDIOLOGY [facility] Consult Note Admit Date: 09/23/2024 HPI: Ms. Goldman presented to be evaluated for chest pain. She has a known past medical history of HTN, who presented to [facility] with complaints of chest pain. Patient reports for the past couple of months, she has been noticing intermittent chest pain and palpitations. She reports chest pain occurs with or immediately following exertion. She reports chest pain radiates down her left arm. She reportslasts for a few hours when it occurs. She recently saw her PCP for the above and had a stress test at outside facility. Stress ECG was positive for ischemia, perfusion images negative. She denies current chest pain or discomfort. Previous CV Testin10/2022 CT calcium score [facility]: Calcium score 0. Past Medical History: Diagnosis Date Essential hypertension, benign Fatty liver Gallbladder polyp Family History Problem Relation Age of Onset Multiple Sclerosis Brother Objective: BP 132/86 (BP Location: Left arm, BP Position: Lying) Pulse 71 Temp 98.3 F (36.8 C) (Oral) Resp 18 Ht 1.549 m (5' 1) Wt 59.5 kg (131 lb 2.8 oz) SpO2 96% BMI 24.79 kg/m Smoking StatusNever No intake or output data in the 24 hours ending 09/24/24 1148 Social Connections: Not on file ROS: Review of Systems Constitutional: Negative. HENT: Negative. Eyes: Negative. Cardiovascular: Positive for chest pain and palpitations. Respiratory: Negative. Endocrine: Negative. Hematologic/Lymphatic: Negative. Skin: Negative. Musculoskeletal: Negative. Gastrointestinal: Negative. Neurological: Negative. Psychiatric/Behavioral: Negative. Allergic/Immunologic: Negative. TELEMETRY: Sinus rhythm with PACs noted on telemetry. EKG: ECG with SR, HR 88. Non-specific TWI and ST depressions noted, unchanged from prior ECG. Physical Exam: Physical Exam Constitutional: Appearance: Normal appearance. HENT: Head: Normocephalic and atraumatic. Nose: Nose normal. Mouth/Throat: Mouth: Mucous membranes are moist. Eyes: Pupils: Pupils are equal, round, and reactive to light. Cardiovascular: Rate and Rhythm: Normal rate and regular rhythm. Pulses: Normal pulses. Heart sounds: Normal heart sounds. Pulmonary: Effort: Pulmonary effort is normal. Breath sounds: Normal breath sounds. Abdominal: Palpations: Abdomen is soft. Musculoskeletal: General: Normal range of motion. Cervical back: Normal range of motion. Skin: General: Skin is warm and dry. Neurological: General: No focal deficit present. Mental Status: She is alert and oriented to person, place, and time. Psychiatric: Mood and Affect: Mood normal. Behavior: Behavior normal. Medications: calcium carbonate 500 mg Oral Daily heparin 12.565 Units/kg/hr (09/24/24 0342) Acetaminophen, heparin AND heparin, hydrALAZINE, Melatonin, naloxone, Ondansetron 4mg/2ml OR Ondansetron, Sodium chloride (PF) Lab Data: CBC: Recent Labs 09/23/24 0819 09/23/24 1652 09/24/24 0157 WBC 4.7 6.9 7.0 HGB 13.5 13.4 12.3 HCT 39.6 40.5 37.5 MCV 85.7 85.8 86.6 BMP: Recent Labs 09/23/24 0819 09/24/24 0157 CO2 29 23 BUN 14 17 LIVER PROFILE: No results for input(s): AST, ALT, LIPASE, AMYLASE, BILITOT, ALKPHOS in the last 72 hours. Invalid input(s): ALB, BILIDIR PT/INR: Recent Labs 09/23/24 0855 09/24/24 0157 INR 1.0 1.0 APTT: No results for input(s): APTT in the last 72 hours. BNP: No results for input(s): BNP in the last 72 hours. IMAGING: Abnormal stress test: Stress test at [facility] with ECGs positive for ischemia. Perfusion imaging negative. Admitted with typical anginal symptoms. Denies current chest pain or discomfort. Troponins negative x3. On heparin drip. With abnormal stress test and typical anginal symptoms, recommend LHC. Risks versus benefits of LHCdiscussed with patient, who states understanding and agreeable to proceed. Plan for LHC Thursday. Will add ASA, BB. IF CAD confirmed, would recommend statin. Palpitations: PACs noted on telemetry. Is pending holter monitor with PCP. The above A&P will be discussed and reviewed with Dr. Johnson and changes will be made as appropriate. Cosigned by Alvaro Johnson MD at 09/24/2024 12:29 PM EDT Associated attestation - Alvaro Johnson MD - 09/24/2024 12:29 PM EDT The Century Cures Act makes medical notes like these available to patients in the interest of transparency. However, be advised this is a medical document. It is intended as [id number] communication. It is written in medical language and may contain abbreviations or verbiage that are unfamiliar. It may appear blunt or direct. Medical documents are intended to carry relevant information, facts as evident, and the clinical opinion of the practitioner. Patient is seen and examined. I have reviewed the findings documented by SLATER APPRENTICE/Resident. I was involved in the resident/SLATER APPRENTICE care and was present during all critical or kay portions and immediately available to furnish services during the entire service. In addition, I have reviewed all the pertinent cardiac imaging findings for the patient. In addition to A/P done by resident/SLATER APPRENTICE, please refer to my addendum to conclude the final assessment. C/C; presented to hospital with episodes of anginal chest pain with exertion. Offered nuc stress test, showing ischemia in EKG. Nuc portion is negative at OSH. She has reported 2 episodes of chest pressure radiating to left arm while walking and has PVC/ ST depression in V 4- V6 suggestive of ischemia FH is positive for CAD. Non smoker EKG : SR/ PVC/ Physical Examination Gen: Alert and oriented X 3. Resp: Equal breath sounds bilaterally CVS: S 1 , S 2 is heard. JVP Peripheral: Pedal edema A&P 1) UA 2) HTN 3) Sulpha Allergy? Takes claritin and becomes hypertensive. Never had any anaplylactic rxn ACS protocol. Plan for LHC on Thursday. Cath risks and benefits were discussed in detail. All the possible risks including but not limited to nephropathy, infection, stroke and emergent bypass were discussed. Patient denies any allergy to iodine, active GI, bleeding or any planned surgery in near future.Importance of uninterrupted D.A.P.T in setting of PCI was discussed as well and instructed not to stop the medicine without checking with cardiology team. I have spent more than 30 minutes in the care of this patient including chart review, documentation, patient interaction and reviewing the images. Side effects of the cardiovascular medicines prescribed to the patient by cardiology team, have been discussed in details including but not limited to common adverse effects. Patient is aware of it and will call us at [phone] if there is any potential side effect of medicine and will address the concerns. Dr. Johnson Cardiology [facility] Work Phone: [phone] Consult note* Marielena Smithirinabert, ECONOMIC HISTORY TEACHER-MOLD MAINTENANCE TECHNICIAN - 09/24/2024 11:48 AM EDTAssociated Order(s): IP CONSULT TO CARDIOLOGY [facility] Consult Note Admit Date: 09/23/2024 HPI: Ms. Goldman presented to be evaluated for chest pain. She has a known past medical history of HTN, who presented to [facility] with complaints of chest pain. Patient reports for the past couple of months, she has been noticing intermittent chest pain and palpitations. She reports chest pain occurs with or immediately following exertion. She reports chest pain radiates down her left arm. She reportslasts for a few hours when it occurs. She recently saw her PCP for the above and had a stress test at outside facility. Stress ECG was positive for ischemia, perfusion images negative. She denies current chest pain or discomfort. Previous CV Testin10/2022 CT calcium score [facility]: Calcium score 0. Past Medical History: Diagnosis Date Essential hypertension, benign Fatty liver Gallbladder polyp Family History Problem Relation Age of Onset Multiple Sclerosis Brother Objective: BP 132/86 (BP Location: Left arm, BP Position: Lying) Pulse 71 Temp 98.3 F (36.8 C) (Oral) Resp 18 Ht 1.549 m (5' 1) Wt 59.5 kg (131 lb 2.8 oz) SpO2 96% BMI 24.79 kg/m Smoking StatusNever No intake or output data in the 24 hours ending 09/24/24 1148 Social Connections: Not on file ROS: Review of Systems Constitutional: Negative. HENT: Negative. Eyes: Negative. Cardiovascular: Positive for chest pain and palpitations. Respiratory: Negative. Endocrine: Negative. Hematologic/Lymphatic: Negative. Skin: Negative. Musculoskeletal: Negative. Gastrointestinal: Negative. Neurological: Negative. Psychiatric/Behavioral: Negative. Allergic/Immunologic: Negative. TELEMETRY: Sinus rhythm with PACs noted on telemetry. EKG: ECG with SR, HR 88. Non-specific TWI and ST depressions noted, unchanged from prior ECG. Physical Exam: Physical Exam Constitutional: Appearance: Normal appearance. HENT: Head: Normocephalic and atraumatic. Nose: Nose normal. Mouth/Throat: Mouth: Mucous membranes are moist. Eyes: Pupils: Pupils are equal, round, and reactive to light. Cardiovascular: Rate and Rhythm: Normal rate and regular rhythm. Pulses: Normal pulses. Heart sounds: Normal heart sounds. Pulmonary: Effort: Pulmonary effort is normal. Breath sounds: Normal breath sounds. Abdominal: Palpations: Abdomen is soft. Musculoskeletal: General: Normal range of motion. Cervical back: Normal range of motion. Skin: General: Skin is warm and dry. Neurological: General: No focal deficit present. Mental Status: She is alert and oriented to person, place, and time. Psychiatric: Mood and Affect: Mood normal. Behavior: Behavior normal. Medications: calcium carbonate 500 mg Oral Daily heparin 12.565 Units/kg/hr (09/24/24 0342) Acetaminophen, heparin AND heparin, hydrALAZINE, Melatonin, naloxone, Ondansetron 4mg/2ml OR Ondansetron, Sodium chloride (PF) Lab Data: CBC: Recent Labs 09/23/24 0819 09/23/24 1652 09/24/24 0157 WBC 4.7 6.9 7.0 HGB 13.5 13.4 12.3 HCT 39.6 40.5 37.5 MCV 85.7 85.8 86.6 BMP: Recent Labs 09/23/24 0819 09/24/24 0157 CO2 29 23 BUN 14 17 LIVER PROFILE: No results for input(s): AST, ALT, LIPASE, AMYLASE, BILITOT, ALKPHOS in the last 72 hours. Invalid input(s): ALB, BILIDIR PT/INR: Recent Labs 09/23/24 0855 09/24/24 0157 INR 1.0 1.0 APTT: No results for input(s): APTT in the last 72 hours. BNP: No results for input(s): BNP in the last 72 hours. IMAGING: Abnormal stress test: Stress test at [facility] with ECGs positive for ischemia. Perfusion imaging negative. Admitted with typical anginal symptoms. Denies current chest pain or discomfort. Troponins negative x3. On heparin drip. With abnormal stress test and typical anginal symptoms, recommend LHC. Risks versus benefits of LHCdiscussed with patient, who states understanding and agreeable to proceed. Plan for LHC Thursday. Will add ASA, BB. IF CAD confirmed, would recommend statin. Palpitations: PACs noted on telemetry. Is pending holter monitor with PCP. The above A&P will be discussed and reviewed with Dr. Johnson and changes will be made as appropriate. Cosigned by Alvaro Johnson MD at 09/24/2024 12:29 PM EDT Associated attestation - Alvaro Johnson MD - 09/24/2024 12:29 PM EDT The Century Cures Act makes medical notes like these available to patients in the interest of transparency. However, be advised this is a medical document. It is intended as [id number] communication. It is written in medical language and may contain abbreviations or verbiage that are unfamiliar. It may appear blunt or direct. Medical documents are intended to carry relevant information, facts as evident, and the clinical opinion of the practitioner. Patient is seen and examined. I have reviewed the findings documented by SLATER APPRENTICE/Resident. I was involved in the resident/SLATER APPRENTICE care and was present during all critical or kay portions and immediately available to furnish services during the entire service. In addition, I have reviewed all the pertinent cardiac imaging findings for the patient. In addition to A/P done by resident/SLATER APPRENTICE, please refer to my addendum to conclude the final assessment. C/C; presented to hospital with episodes of anginal chest pain with exertion. Offered nuc stress test, showing ischemia in EKG. Nuc portion is negative at OSH. She has reported 2 episodes of chest pressure radiating to left arm while walking and has PVC/ ST depression in V 4- V6 suggestive of ischemia FH is positive for CAD. Non smoker EKG : SR/ PVC/ Physical Examination Gen: Alert and oriented X 3. Resp: Equal breath sounds bilaterally CVS: S 1 , S 2 is heard. JVP Peripheral: Pedal edema A&P 1) UA 2) HTN 3) Sulpha Allergy? Takes claritin and becomes hypertensive. Never had any anaplylactic rxn ACS protocol. Plan for LHC on Thursday. Cath risks and benefits were discussed in detail. All the possible risks including but not limited to nephropathy, infection, stroke and emergent bypass were discussed. Patient denies any allergy to iodine, active GI, bleeding or any planned surgery in near future.Importance of uninterrupted D.A.P.T in setting of PCI was discussed as well and instructed not to stop the medicine without checking with cardiology team. I have spent more than 30 minutes in the care of this patient including chart review, documentation, patient interaction and reviewing the images. Side effects of the cardiovascular medicines prescribed to the patient by cardiology team, have been discussed in details including but not limited to common adverse effects. Patient is aware of it and will call us at [phone] if there is any potential side effect of medicine and will address the concerns. Dr. [facility] documented in this encounterUNC HEALTH [id number] Nurse Note* Nursing Notes - Melani Trejo RN - 09/23/2024 8:26 PM EDT Patient resting in bed. Respirations even and unlabored. Aox4. Room air. Denies pain at this time. Heparin gtt infusing without difficulty. Verified rate and dose. Patient denies needing anything at this time. Assessment completed. Call light and bedside table within reach. [id number] Nurse Note* Nursing Notes - Jacqui Licona RN - 09/23/2024 6:19 PM EDT nitroglycerin paste removed at this time. [id number] History and physical note* JOSSELIN Ramos - 09/23/2024 4:47 PM EDT Hospital Medicine History & Physical Patient: Gauri Goldman, 1955, [id number] Physician: JOSSELIN Ramos Admit Date: 09/23/2024 Assessment and Plan Gauri Goldman is a 69-year-old female with PMH PACs and occasional HTN (takes losartan PRN at home) presented to [facility] on 09/23/2024 with complaints of chest discomfort and recent outpatient abnormal stress test. She was hospitalized for further workup/treatment. Chest pain: with associated left arm discomfort. 09/22/2024 outpatient exercise stress test positive for exercise induced EKG changes of ischemia, positive for exercise induced chest pain. No evidence of ischemia or infarct on nuclear imaging. Trop negative at OSH . EKG without acute ST changes. Onheparin gtt. TTE ordered. NPO at [place]. 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 Takes losartan PRN at home. Add PRN IVhydralazine DVT prophylaxis: heparin gtt FEN/GI: regular. NPO at [place] Code Status: Full code Dispo: Observation, anticipate 1-2 more days. Anticipate discharge Home JOSSELIN Ramos Chief Complaint Chest pain History of Present Illness Gauri Goldman is a 69-year-old female with PMH PACs and occasional HTN (takes losartan PRN at home) presented to [facility] on 09/23/2024 with complaints of chest discomfort and recent outpatient abnormal stress test. She was hospitalized for further workup/treatment. Information obtained from chart review and patient report. Patient stated she was been having palpitations and has a diagnosis of PVCs. Outpatient echocardiogram and event monitor ordered per PCP. She also reported intermittent chest discomfort for which an outpatient stress test was ordered which was abnormal.Patient stated she woke up this and was experiencing chest discomfort worsened when it has been over the past couple days along with left arm numbness/tingling. She was concerned so went to the ER. At time my exam she was some left arm discomfort but no chest pain or pressure. No shortness a breath Past Medical, Surgical, Family, and Social History Past Medical History: Diagnosis Date Essential hypertension, benign Fatty liver Gallbladder polyp Past Surgical History: Procedure Laterality Date HYSTERECTOMY 2014 COLONOSCOPY DIAGNOSTIC Family History Problem Relation Age of Onset Multiple Sclerosis Brother Social History Socioeconomic History Marital status: Tobacco Use Smoking status: Never Smokeless tobacco: Never Vaping Use Vaping status: Never Used Substance and Sexual Activity Alcohol use: Not Currently Drug use: Never Social Drivers of Health Food Insecurity: No Food Insecurity (09/23/2024) NCSS - Food Insecurity Worried About Running Out of Food in the Last Year: No Ran Out of Food in the Last Year: No Transportation Needs: No Transportation Needs (09/23/2024) NCSS - Transportation Lack of Transportation: No Personal Safety: Not At Risk (09/23/2024) NCSS - Interpersonal Safety Feels Physically and Emotionally Safe: Yes Physically Hurt by Someone: No Humiliated or Emotionally Abused by Someone: No Housing Stability: Not At Risk (09/23/2024) NCSS - Housing/Utilities Has Housing: Yes Worried About Losing Housing: No Unable to Get Utilities: No Medications Prior to Admission Medications Prescriptions Last Dose Informant Patient Reported? Taking? EPINEPHrine 0.3 MG/0.3ML Solution Auto-injector injection Yes No Sig: INJECT CONTENTS OF 1 PEN NEEDED FOR ALLERGIC REACTION Ergocalciferol 1.25 MG (66378 UT) capsule Yes No Sig: Take by mouth. Erythromycin 5 MG/GM Ointment ophthalmic ointment No No Sig: Apply a 1 cm ribbon of ointment to the lower eyelid on the left twice daily for 7 days Loratadine 10 MG tablet Yes No Sig: Take by mouth. Losartan 25 MG tablet Yes No Sig: Take 1 tablet by mouth daily. Losartan 50 MG tablet Yes No Magnesium 400 MG capsule Yes No Sig: Take 400 mg by mouth daily. Facility-Administered Medications: None ALLERGIES: She is allergic to not able to determine. Review of Systems (positives in bold) ROS negative if not highlighted or mentioned in HPI Physical Exam Temp: [97.8 F (36.6 C)-98.2 F (36.8 C)] 97.8 F (36.6 C) Pulse (Heart Rate): [76-95] 89 Resp Rate: [15-23] 18 BP: (126-184)/(78-96) 151/90 O2 Sat (%): [88 %-98 %] 96 % Weight: [57.3 kg (126 lb 5.2 oz)-59.9 kg (132 lb)] 57.3 kg (126 lb 5.2 oz) Body mass index is 23.87 kg/m . No intake/output data recorded. Oxygen Therapy O2 Sat (%): 96 % O2 Device: room air Physical Exam: Vitals and lab work reviewed General: 69-year-old who appears stated age and in no acute distress Skin:Normal color, no rash, no lesions. HEENT:Pupils equal, round and reactive. Cardiovascular:Normal S1 & S2, no rubs, murmurs or gallops. No JVD. No edema. Pulse regular. Lungs: LCTA. On room air Abdomen:Soft, non-tender, no rigidity. Extremities:No deformity, no tenderness, no joint clubbing. Neurological:Normal cognition and motor skills. Rest of the physical exam is non contributory. Labs and Imaging WBC/Hgb/Hct/Plts: 4.7/13.5/39.6/204 (09/23 818) Bun/Creat/Cl/CO2/Glucose: 14/0.69/104/29/101 (09/23 818) Ptt/Pt/Inr: 32.2/11.1/1.0 (09/23 854) Na/K+/Phos/Mg/Ca: 140/3.7/--/2.1/9.2 (09/23 818) Lab Results Component Value Date ALT 19 09/06/2024 AST 23 09/06/2024 ALKPHOS 80 09/06/2024 BILITOTAL 0.4 09/06/2024 [id number] History and physical note* JOSSELIN Ramos - 09/23/2024 4:47 PM EDT Hospital Medicine History & Physical Patient: Gauri Goldman, 1955, [id number] Physician: JOSSELIN Ramos Admit Date: 09/23/2024 Assessment and Plan Gauri Goldman is a 69-year-old female with PMH PACs and occasional HTN (takes losartan PRN at home) presented to [facility] on 09/23/2024 with complaints of chest discomfort and recent outpatient abnormal stress test. She was hospitalized for further workup/treatment. Chest pain: with associated left arm discomfort. 09/22/2024 outpatient exercise stress test positive for exercise induced EKG changes of ischemia, positive for exercise induced chest pain. No evidence of ischemia or infarct on nuclear imaging. Trop negative at OSH . EKG without acute ST changes. Onheparin gtt. TTE ordered. NPO at [place]. 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 Takes losartan PRN at home. Add PRN IVhydralazine DVT prophylaxis: heparin gtt FEN/GI: regular. NPO at [place] Code Status: Full code Dispo: Observation, anticipate 1-2 more days. Anticipate discharge Home JOSSELIN Ramos Chief Complaint Chest pain History of Present Illness Gauri Goldman is a 69-year-old female with PMH PACs and occasional HTN (takes losartan PRN at home) presented to [facility] on 09/23/2024 with complaints of chest discomfort and recent outpatient abnormal stress test. She was hospitalized for further workup/treatment. Information obtained from chart review and patient report. Patient stated she was been having palpitations and has a diagnosis of PVCs. Outpatient echocardiogram and event monitor ordered per PCP. She also reported intermittent chest discomfort for which an outpatient stress test was ordered which was abnormal.Patient stated she woke up this and was experiencing chest discomfort worsened when it has been over the past couple days along with left arm numbness/tingling. She was concerned so went to the ER. At time my exam she was some left arm discomfort but no chest pain or pressure. No shortness a breath Past Medical, Surgical, Family, and Social History Past Medical History: Diagnosis Date Essential hypertension, benign Fatty liver Gallbladder polyp Past Surgical History: Procedure Laterality Date HYSTERECTOMY 2014 COLONOSCOPY DIAGNOSTIC Family History Problem Relation Age of Onset Multiple Sclerosis Brother Social History Socioeconomic History Marital status: Tobacco Use Smoking status: Never Smokeless tobacco: Never Vaping Use Vaping status: Never Used Substance and Sexual Activity Alcohol use: Not Currently Drug use: Never Social Drivers of Health Food Insecurity: No Food Insecurity (09/23/2024) NCSS - Food Insecurity Worried About Running Out of Food in the Last Year: No Ran Out of Food in the Last Year: No Transportation Needs: No Transportation Needs (09/23/2024) NCSS - Transportation Lack of Transportation: No Personal Safety: Not At Risk (09/23/2024) NCSS - Interpersonal Safety Feels Physically and Emotionally Safe: Yes Physically Hurt by Someone: No Humiliated or Emotionally Abused by Someone: No Housing Stability: Not At Risk (09/23/2024) NCSS - Housing/Utilities Has Housing: Yes Worried About Losing Housing: No Unable to Get Utilities: No Medications Prior to Admission Medications Prescriptions Last Dose Informant Patient Reported? Taking? EPINEPHrine 0.3 MG/0.3ML Solution Auto-injector injection Yes No Sig: INJECT CONTENTS OF 1 PEN NEEDED FOR ALLERGIC REACTION Ergocalciferol 1.25 MG (52876 UT) capsule Yes No Sig: Take by mouth. Erythromycin 5 MG/GM Ointment ophthalmic ointment No No Sig: Apply a 1 cm ribbon of ointment to the lower eyelid on the left twice daily for 7 days Loratadine 10 MG tablet Yes No Sig: Take by mouth. Losartan 25 MG tablet Yes No Sig: Take 1 tablet by mouth daily. Losartan 50 MG tablet Yes No Magnesium 400 MG capsule Yes No Sig: Take 400 mg by mouth daily. Facility-Administered Medications: None ALLERGIES: She is allergic to not able to determine. Review of Systems (positives in bold) ROS negative if not highlighted or mentioned in HPI Physical Exam Temp: [97.8 F (36.6 C)-98.2 F (36.8 C)] 97.8 F (36.6 C) Pulse (Heart Rate): [76-95] 89 Resp Rate: [15-23] 18 BP: (126-184)/(78-96) 151/90 O2 Sat (%): [88 %-98 %] 96 % Weight: [57.3 kg (126 lb 5.2 oz)-59.9 kg (132 lb)] 57.3 kg (126 lb 5.2 oz) Body mass index is 23.87 kg/m . No intake/output data recorded. Oxygen Therapy O2 Sat (%): 96 % O2 Device: room air Physical Exam: Vitals and lab work reviewed General: 69-year-old who appears stated age and in no acute distress Skin:Normal color, no rash, no lesions. HEENT:Pupils equal, round and reactive. Cardiovascular:Normal S1 & S2, no rubs, murmurs or gallops. No JVD. No edema. Pulse regular. Lungs: LCTA. On room air Abdomen:Soft, non-tender, no rigidity. Extremities:No deformity, no tenderness, no joint clubbing. Neurological:Normal cognition and motor skills. Rest of the physical exam is non contributory. Labs and Imaging WBC/Hgb/Hct/Plts: 4.7/13.5/39.6/204 (09/23 818) Bun/Creat/Cl/CO2/Glucose: 14/0.69/104/29/101 (09/23 818) Ptt/Pt/Inr: 32.2/11.1/1.0 (09/23 854) Na/K+/Phos/Mg/Ca: 140/3.7/--/2.1/9.2 (09/23 818) Lab Results Component Value Date ALT 19 09/06/2024 AST 23 09/06/2024 ALKPHOS 80 09/06/2024 BILITOTAL 0.4 09/06/2024 documented in this encounterUNC HEALTH [id number] Emergency department Note* Dorys Enriquez, ACCOUNTING GENERALIST - 09/23/2024 2:20 PM EDT [place] [id number] Emergency department Note* Dorys Enriquez, ACCOUNTING GENERALIST - 09/23/2024 2:20 PM EDT 3B EXT [id number] DR GALVAN [id number] Emergency department Note* NESTOR Naik - 09/23/2024 2:20 PM EDT [facility] called with ETA [phone] [id number] Emergency department Note* NESTOR Naik - 09/23/2024 2:20 PM EDT [place] * NESTOR Naik - 09/23/2024 2:20 PM EDT 3B EXT [id number] DR GALVAN * NESTOR Naik - 09/23/2024 2:20 PM EDT [facility] called with ETA [phone] * NESTOR Naik - 09/23/2024 11:15 AM EDT Transport- [facility] 1330 * NESTOR Naik - 09/23/2024 10:42 AM EDT Called [facility], [facility] on ETA. * Rina Thomas MD - 09/23/2024 8:01 AM EDT History Chief Complaint Patient presents with Chest Pain Patient reports she had a stress test yesterday and had exercise induced chest pain during the test. Patient states that her pain at that time was around 3/10. Today patient reports that she is having chest pain and pain into her left arm that rates around 5/10. The patient presents stating that she is having pain in the left upper chest to her left arm. She describes this as chest pain again. She has been getting this with some frequency recently and states she had a nuclear stress test performed yesterday in [facility]. She has the report on her phone showing significant reversible, inducible ischemia as well as noting chest pain responding to nitroglycerin during the test. She again had left arm tingling starting at 6:30 a.m. yesterday evening and 2-3 hours spells of pain in the left upper chest over the night. The chest discomfort is aching to heavy in character. This pain is not exertional, she has occasional nausea and no diaphoresis or shortness of breath. She did not take aspirin, nitroglycerin or other medicines. With the stress testresults she states there is a plan to do an echocardiogram and a Holter monitor. She states there was no discussion of catheterization. She states that she is having lower extremity edema but there is none present at this time. She denies recent change in medicines or activity. She has not had immobilization, injury or leg pain. She has a strong family history of heart disease and a history of hypertension. She denies history of coronary artery disease, diabetes, hyperlipidemia, obesity, smoking history or DVT/PE. She is alert, appears comfortable and states she only has minimal discomfort in the left upper chest at this time. The history is provided by the patient and medical records. No interpreter and translator was used. Past Medical History: Diagnosis Date Essential hypertension, benign Fatty liver Gallbladder polyp Past Surgical History: Procedure Laterality Date HYSTERECTOMY 2014 COLONOSCOPY DIAGNOSTIC Family History Problem Relation Age of Onset Multiple Sclerosis Brother Social History Tobacco Use Smoking status: Never Smokeless tobacco: Never Vaping Use Vaping status: Never Used Substance Use Topics Alcohol use: Not Currently Drug use: Never Allergies Allergen Reactions Not Able To Determine Nausea and Vomiting, Itchy Eyes, Abdominal Discomfort, Headache, Hypertensionand Dyspepsia Food and sulfite intolerance Current Outpatient Medications Medication Instructions EPINEPHrine 0.3 MG/0.3ML Solution Auto-injector injection INJECT CONTENTS OF 1 PEN NEEDED FOR ALLERGIC REACTION Ergocalciferol 1.25 MG (45793 UT) capsule Oral Erythromycin 5 MG/GM Ointment ophthalmic ointment Apply a 1 cm ribbon of ointment to the lower eyelid on the left twice daily for 7 days Loratadine 10 MG tablet Oral Losartan (COZAAR) 25 mg, Oral, DAILY Losartan 50 MG tablet Magnesium 400 mg, Oral, DAILY Review of Systems All other systems reviewed and are negative. Physical Exam BP (!) 163/96 Pulse 86 Temp 98.2 F (36.8 C) (Temporal) Resp 23 Ht 1.549 m (5' 1) Wt 59.9kg (132 lb) SpO2 97% BMI 24.94 kg/m Smoking Status Never Physical Exam Vitals and nursing note reviewed. Constitutional: General: She is not in acute distress. Appearance: Normal appearance. She is normal weight. She is not ill-appearing or diaphoretic. HENT: Head: Normocephalic. Nose: Nose normal. Eyes: Conjunctiva/sclera: Conjunctivae normal. Cardiovascular: Rate and Rhythm: Normal rate and regular rhythm. Pulses: Normal pulses. Heart sounds: Normal heart sounds. Pulmonary: Effort: Pulmonary effort is normal. No respiratory distress. Breath sounds: Normal breath sounds. No wheezing. Chest: Chest wall: Tenderness (Left pectoral region) present. Abdominal: General: Bowel sounds are normal. There is no distension. Palpations: Abdomen is soft. Tenderness: There is no abdominal tenderness. Musculoskeletal: General: No swelling, tenderness or signs of injury. Normal range of motion. Cervical back: Normal range of motion. Right lower leg: No edema. Left lower leg: No edema. Skin: General: Skin is warm and dry. Capillary Refill: Capillary refill takes less than 2 seconds. Coloration: Skin is not pale. Neurological: General: No focal deficit present. Mental Status: She is alert and oriented to person, place, and time. Mental status is at baseline. Psychiatric: Mood and Affect: Mood normal. Behavior: Behavior normal. ED Course ED Course as of 09/23/24 0911 ThuSep 23, 2024 08 ECG EKG is a sinus rhythm with a rate of 88, axis of 33, IL interval of 160 and a QT/QTC of 368/446. Patient was a singular PVC. I do not see acute ST or T-wave changes for ischemia or infarction. This is on my interpretation. 0842 XR CHEST 1 VIEW PORTABLE Single-view chest x-ray is performed. This does not show focal infiltrate, effusion, pneumothorax or heart failure. Cardiac silhouette and mediastinum are narrow. 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 No acute abnormalities are seen. This is on my interpretation. Results for orders placed or performed during the hospital encounter of 09/23/24 BASIC METABOLIC PANEL Result Value Ref Range Sodium 140 136 - 145 mmol/L Potassium 3.7 3.5 - 5.1 mmol/L Chloride 104 98 - 107 mmol/L Carbon Dioxide 29 23 - 29 mmol/L BUN 14 8 - 23 mg/dL Creatinine 0.69 0.60 - 1.20 mg/dL Glucose 101 70 - 105 mg/dL Calcium 9.2 8.6 - 10.3 mg/dL BUN/CREA Ratio 20 6 - 26 Osmolality (Calc) 291 280 - 300 eGFR, CKD-EPI, Female >90 >=60 mL/min/1.73m2 MAGNESIUM Result Value Ref Range Magnesium 2.1 1.6 - 2.6 mg/dL HIGH SENSITIVITY TROPONIN I - SINGLE ORDER Result Value Ref Range hs-Troponin I <3 <15 ng/L CBC AND ELECTRONIC DIFF Result Value Ref Range WBC Count 4.7 4.3 - 11.1 K/uL RBC Count 4.62 3.82 - 4.97 M/uL Hemoglobin 13.5 11.5 - 15.4 g/dL Hematocrit 39.6 35.3 - 44.9 % Mean Cell Volume 85.7 83.0 - 100.0 fL Mean Cell Hgb 29.2 28.0 - 33.0 pg Mean Cell Hgb Conc 34.1 31.6 - 35.5 g/dL RBC Distribution 13.1 11.5 - 14.5 % Platelet Count 204 140 - 400 K/uL Mean Platelet Volume 8.9 (L) 9.4 - 12.4 fL Segs + Bands Auto 56.2 % Immature Grans % 0.4 % Lymphocyte % Auto 32.5 % Monocyte % Auto 8.0 % Eosinophil % Auto 2.5 % Basophil % Auto 0.4 % Segs + Bands,Absolute Auto 2.7 1.6 - 8.9 K/uL Abs Lymph Auto 1.5 0.6 - 4.6 K/uL Abs [place] Auto 0.4 0.0 - 1.3 K/uL Abs Eos Auto 0.1 0.0 - 0.6 K/uL Abs Baso Auto 0.0 0.0 - 0.2 K/uL Nucleated RBC 0 /100 WBC TROPONIN I INITIAL Result Value Ref Range hs-Troponin I <3 <15 ng/L ANTI XA HEPARIN (UNFRACTIONATED) Result Value Ref Range Anti Xa Heparin (Unfractionated) <0.04 (L) 0.30 - 0.70 IU/mL PTT Result Value Ref Range PTT 32.2 26.0 - 36.0 sec PROTIME-INR Result Value Ref Range PT 11.1 9.4 - 12.1 sec INR 1.0 XR CHEST 1 VIEW PORTABLE Final Result IMPRESSION: No acute cardiopulmonary process. D/ / Patrick Renteria Interpreting Provider: Patrick Renteria Medications nitroGLYCERIN (NITRO-BID) 2 % ointment 1 inch (has no administration in time range) Heparin injection 3,500 Units (has no administration in time range) Heparin (Porcine) in NaCl 25413-9.45 UT/250ML-% premix infusion (has no administration in time range) And Heparin injection 2,000-3,500 Units (has no administration in time range) Aspirin tablet 325 mg (325 mg Oral Given 09/23/24 0818) Procedures Medical Decision Making The patient was basically failed a stress test only yesterday and he was recurrent pain. She was written for an aspirin, monitoring, EKG, chest x-ray and baseline laboratories to include 2 troponins.She will likely need observation and more definitive testing. 0848: With review of EKG, chest x-ray and initial lab tests I have again talked to the patient about results and the plan of care. She states her primary care is in [place] but she now does live in the [place] area. 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 She would be agreeable to establishing cardiologycare with the [place]. She states her pain now is a 5 on a scale of 1-10 and she was written for nitroglycerin paste and a heparin drip. I will discuss care with the [facility] and the hospitalist service when the remainder of her laboratories return. 0909: Dr. Johnson has been consulted with Cardiology. He agrees with the aspirin, nitroglycerin, heparin. He states they can consult and review the nuclear stress report and decide on appropriate further testing at [facility]. A request has being placed to the hospitalist service for transfer. Amount and/or Complexity of Data Reviewed External Data Reviewed: radiology and notes. Details: Nuclear stress test report has been reviewed on her phone. Labs: ordered. Decision-making details documented in ED Course. Radiology: ordered and independent interpretation performed. Decision-making details documented in ED Course. ECG/medicine tests: ordered and independent interpretation performed. Decision- making details documented in ED Course. Discussion of management or test interpretation with external provider(s): [facility], Dr. Johnson [facility], hospitalist service Risk OTC drugs. Prescription drug management. Decision regarding hospitalization. 1. Precordial pain 2. Unstable angina 3. Abnormal cardiovascular stress test Rina Thomas MD 09/23/24 0911 documented in this encounterUNC HEALTH [id number] Emergency department Note* NESTOR Naik - 09/23/2024 11:15 AM EDT [facility]- [facility] 1330 [id number] Emergency department Note* NESTOR Naik - 09/23/2024 10:42 AM EDT Called [facility], waiting on ETA. [id number] Physician Emergency department Note* Rina Thomas MD - 09/23/2024 8:01 AM EDT History Chief Complaint Patient presents with Chest Pain Patient reports she had a stress test yesterday and had exercise induced chest pain during the test. Patient states that her pain at that time was around 3/10. Today patient reports that she is having chest pain and pain into her left arm that rates around 5/10. The patient presents stating that she is having pain in the left upper chest to her left arm. She describes this as chest pain again. She has been getting this with some frequency recently and states she had a nuclear stress test performed yesterday in [facility]. She has the report on her phone showing significant reversible, inducible ischemia as well as noting chest pain responding to nitroglycerin during the test. She again had left arm tingling starting at 6:30 a.m. yesterday evening and 2-3 hours spells of pain in the left upper chest over the night. The chest discomfort is aching to heavy in character. This pain is not exertional, she has occasional nausea and no diaphoresis or shortness of breath. She did not take aspirin, nitroglycerin or other medicines. With the stress testresults she states there is a plan to do an echocardiogram and a Holter monitor. She states there was no discussion of catheterization. She states that she is having lower extremity edema but there is none present at this time. She denies recent change in medicines or activity. She has not had immobilization, injury or leg pain. She has a strong family history of heart disease and a history of hypertension. She denies history of coronary artery disease, diabetes, hyperlipidemia, obesity, smoking history or DVT/PE. She is alert, appears comfortable and states she only has minimal discomfort in the left upper chest at this time. The history is provided by the patient and medical records. No interpreter and translator was used. Past Medical History: Diagnosis Date Essential hypertension, benign Fatty liver Gallbladder polyp Past Surgical History: Procedure Laterality Date HYSTERECTOMY 2013 COLONOSCOPY DIAGNOSTIC Family History Problem Relation Age of Onset Multiple Sclerosis Brother Social History Tobacco Use Smoking status: Never Smokeless tobacco: Never Vaping Use Vaping status: Never Used Substance Use Topics Alcohol use: Not Currently Drug use: Never Allergies Allergen Reactions Not Able To Determine Nausea and Vomiting, Itchy Eyes, Abdominal Discomfort, Headache, Hypertensionand Dyspepsia Food and sulfite intolerance Current Outpatient Medications Medication Instructions EPINEPHrine 0.3 MG/0.3ML Solution Auto-injector injection INJECT CONTENTS OF 1 PEN NEEDED FOR ALLERGIC REACTION Ergocalciferol 1.25 MG (34561 UT) capsule Oral Erythromycin 5 MG/GM Ointment ophthalmic ointment Apply a 1 cm ribbon of ointment to the lower eyelid on the left twice daily for 7 days Loratadine 10 MG tablet Oral Losartan (COZAAR) 25 mg, Oral, DAILY Losartan 50 MG tablet Magnesium 400 mg, Oral, DAILY Review of Systems All other systems reviewed and are negative. Physical Exam BP (!) 163/96 Pulse 86 Temp 98.2 F (36.8 C) (Temporal) Resp 23 Ht 1.549 m (5' 1) Wt 59.9kg (132 lb) SpO2 97% BMI 24.94 kg/m Smoking Status Never Physical Exam Vitals and nursing note reviewed. Constitutional: General: She is not in acute distress. Appearance: Normal appearance. She is normal weight. She is not ill-appearing or diaphoretic. HENT: Head: Normocephalic. Nose: Nose normal. Eyes: Conjunctiva/sclera: Conjunctivae normal. Cardiovascular: Rate and Rhythm: Normal rate and regular rhythm. Pulses: Normal pulses. Heart sounds: Normal heart sounds. Pulmonary: Effort: Pulmonary effort is normal. No respiratory distress. Breath sounds: Normal breath sounds. No wheezing. Chest: Chest wall: Tenderness (Left pectoral region) present. Abdominal: General: Bowel sounds are normal. There is no distension. Palpations: Abdomen is soft. Tenderness: There is no abdominal tenderness. Musculoskeletal: General: No swelling, tenderness or signs of injury. Normal range of motion. Cervical back: Normal range of motion. Right lower leg: No edema. Left lower leg: No edema. Skin: General: Skin is warm and dry. Capillary Refill: Capillary refill takes less than 2 seconds. Coloration: Skin is not pale. Neurological: General: No focal deficit present. Mental Status: She is alert and oriented to person, place, and time. Mental status is at baseline. Psychiatric: Mood and Affect: Mood normal. Behavior: Behavior normal. ED Course ED Course as of 09/23/24 0911 ThuSep 23, 2024 08 ECG EKG is a sinus rhythm with a rate of 88, axis of 33, IL interval of 160 and a QT/QTC of 368/446. Patient was a singular PVC. I do not see acute ST or T-wave changes for ischemia or infarction. This is on my interpretation. 0842 XR CHEST 1 VIEW PORTABLE Single-view chest x-ray is performed. This does not show focal infiltrate, effusion, pneumothorax or heart failure. Cardiac silhouette and mediastinum are narrow. 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 No acute abnormalities are seen. This is on my interpretation. Results for orders placed or performed during the hospital encounter of 09/23/24 BASIC METABOLIC PANEL Result Value Ref Range Sodium 140 136 - 145 mmol/L Potassium 3.7 3.5 - 5.1 mmol/L Chloride 104 98 - 107 mmol/L Carbon Dioxide 29 23 - 29 mmol/L BUN 14 8 - 23 mg/dL Creatinine 0.69 0.60 - 1.20 mg/dL Glucose 101 70 - 105 mg/dL Calcium 9.2 8.6 - 10.3 mg/dL BUN/CREA Ratio 20 6 - 26 Osmolality (Calc) 291 280 - 300 eGFR, CKD-EPI, Female >90 >=60 mL/min/1.73m2 MAGNESIUM Result Value Ref Range Magnesium 2.1 1.6 - 2.6 mg/dL HIGH SENSITIVITY TROPONIN I - SINGLE ORDER Result Value Ref Range hs-Troponin I <3 <15 ng/L CBC AND ELECTRONIC DIFF Result Value Ref Range WBC Count 4.7 4.3 - 11.1 K/uL RBC Count 4.62 3.82 - 4.97 M/uL Hemoglobin 13.5 11.5 - 15.4 g/dL Hematocrit 39.6 35.3 - 44.9 % Mean Cell Volume 85.7 83.0 - 100.0 fL Mean Cell Hgb 29.2 28.0 - 33.0 pg Mean Cell Hgb Conc 34.1 31.6 - 35.5 g/dL RBC Distribution 13.1 11.5 - 14.5 % Platelet Count 204 140 - 400 K/uL Mean Platelet Volume 8.9 (L) 9.4 - 12.4 fL Segs + Bands Auto 56.2 % Immature Grans % 0.4 % Lymphocyte % Auto 32.5 % Monocyte % Auto 8.0 % Eosinophil % Auto 2.5 % Basophil % Auto 0.4 % Segs + Bands,Absolute Auto 2.7 1.6 - 8.9 K/uL Abs Lymph Auto 1.5 0.6 - 4.6 K/uL Abs [place] Auto 0.4 0.0 - 1.3 K/uL Abs Eos Auto 0.1 0.0 - 0.6 K/uL Abs Baso Auto 0.0 0.0 - 0.2 K/uL Nucleated RBC 0 /100 WBC TROPONIN I INITIAL Result Value Ref Range hs-Troponin I <3 <15 ng/L ANTI XA HEPARIN (UNFRACTIONATED) Result Value Ref Range Anti Xa Heparin (Unfractionated) <0.04 (L) 0.30 - 0.70 IU/mL PTT Result Value Ref Range PTT 32.2 26.0 - 36.0 sec PROTIME-INR Result Value Ref Range PT 11.1 9.4 - 12.1 sec INR 1.0 XR CHEST 1 VIEW PORTABLE Final Result IMPRESSION: No acute cardiopulmonary process. D/ / Patrick Renteria Interpreting Provider: Patrick Renteria Medications nitroGLYCERIN (NITRO-BID) 2 % ointment 1 inch (has no administration in time range) Heparin injection 3,500 Units (has no administration in time range) Heparin (Porcine) in NaCl 63113-0.45 UT/250ML-% premix infusion (has no administration in time range) And Heparin injection 2,000-3,500 Units (has no administration in time range) Aspirin tablet 325 mg (325 mg Oral Given 09/23/24 0818) Procedures Medical Decision Making The patient was basically failed a stress test only yesterday and he was recurrent pain. She was written for an aspirin, monitoring, EKG, chest x-ray and baseline laboratories to include 2 troponins.She will likely need observation and more definitive testing. 0848: With review of EKG, chest x-ray and initial lab tests I have again talked to the patient about results and the plan of care. She states her primary care is in [place] but she now does live in the [facility]. 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 She would be agreeable to establishing cardiologycare with the [facility]. She states her pain now is a 5 on a scale of 1-10 and she was written for nitroglycerin paste and a heparin drip. I will discuss care with the [facility] and the hospitalist service when the remainder of her laboratories return. 0909: Dr. Johnson has been consulted with Cardiology. He agrees with the aspirin, nitroglycerin, heparin. He states they can consult and review the nuclear stress report and decide on appropriate further testing at [facility]. A request has being placed to the hospitalist service for transfer. Amount and/or Complexity of Data Reviewed External Data Reviewed: radiology and notes. Details: Nuclear stress test report has been reviewed on her phone. Labs: ordered. Decision-making details documented in ED Course. Radiology: ordered and independent interpretation performed. Decision-making details documented in ED Course. ECG/medicine tests: ordered and independent interpretation performed. Decision- making details documented in ED Course. Discussion of management or test interpretation with external provider(s): Maliha Lund, Dr. Johnson [facility], hospitalist service Risk OTC drugs. Prescription drug management. Decision regarding hospitalization. 1. Precordial pain 2. Unstable angina 3. Abnormal cardiovascular stress test Rina Thomas MD 09/23/24 0911 [id number] Hospital Discharge instructions* Discharge Instructions* Andre Ramon MD - 09/06/2024 8:46 PM EST Your EKG showed some nonspecific abnormalities that she would be follow up closely with the primarycare physician tomorrow. It was important that you follow up in your likely will need outpatient stress testing performed. Avoid any heavy exertion in the meantime. * Attachments The following attachments cannot be sent through Care Everywhere. * Chest Pain (Guinean) documented in this encounterUNC HEALTH [id number] Physician Emergency department Note* Andre Ramon MD - 09/06/2024 7:53 PM EST History No chief complaint on file. Patient is a 69-year-old female who presents for evaluation. Patient has a history of hypertension,hyperlipidemia who has been evaluated by her physician for possible Holter monitor testing in September. She states that today and yesterday she had intermittent brief palpitations. Denies any chest painor shortness of breath. Denies any medications. Denies alcohol use. Appears to be in no distress presented for evaluation as she had these episodes during work. Past Medical History: Diagnosis Date Essential hypertension, benign Fatty liver Gallbladder polyp Past Surgical History: Procedure Laterality Date HYSTERECTOMY 2014 COLONOSCOPY DIAGNOSTIC Family History Problem Relation Age of Onset Multiple Sclerosis Brother Social History Tobacco Use Smoking status: Never Smokeless tobacco: Never Vaping Use Vaping status: Never Used Substance Use Topics Alcohol use: Not Currently Drug use: Never Review of Systems Constitutional: Negative. HENT: Negative. Eyes: Negative. Respiratory: Negative for apnea and choking. Cardiovascular: Positive for palpitations. Gastrointestinal: Negative. Endocrine: Negative. Genitourinary: Negative. Musculoskeletal: Negative. Hematological: Negative. Physical Exam Smoking Status Never Physical Exam Vitals reviewed. HENT: Head: Normocephalic and atraumatic. Right Ear: Tympanic membrane normal. Left Ear: Tympanic membrane normal. Nose: Nose normal. Mouth/Throat: Mouth: Mucous membranes are moist. Eyes: Extraocular Movements: Extraocular movements intact. Cardiovascular: Rate and Rhythm: Normal rate. Heart sounds: Normal heart sounds. Pulmonary: Breath sounds: Normal breath sounds. Abdominal: Palpations: Abdomen is soft. Musculoskeletal: General: Normal range of motion. Cervical back: Normal range of motion and neck supple. Neurological: General: No focal deficit present. Mental Status: She is alert. ED Course Procedures Medical Decision Making No acute electrolyte abnormalities. Patient remains asymptomatic in the emergency room. EKGs consistent with normal sinus rhythm. Advised that there are no concerning dysrhythmias at this time however there was some nonspecific STT wave abnormalities noted in the inferior lateral leads. There are no prior EKGs for comparison. Patient was asymptomatic and cardiac enzymes are normal however advisedclose follow up tomorrow with the primary care physician to arrange for a stress test. Patient is agreeable with the plan and understands the need for close follow up. Amount and/or Complexity of Data Reviewed Labs: ordered. ECG/medicine tests: ordered. Details: Sinus tachycardia rate of 100 normal axis Andre Ramon MD 09/06/242011 Andre Ramon MD 09/06/242045 [id number] Emergency department Note* Andre Ramon MD - 09/06/2024 7:53 PM EST History No chief complaint on file. Patient is a 69-year-old female who presents for evaluation. Patient has a history of hypertension,hyperlipidemia who has been evaluated by her physician for possible Holter monitor testing in September. She states that today and yesterday she had intermittent brief palpitations. Denies any chest painor shortness of breath. Denies any medications. Denies alcohol use. Appears to be in no distress presented for evaluation as she had these episodes during work. Past Medical History: Diagnosis Date Essential hypertension, benign Fatty liver Gallbladder polyp Past Surgical History: Procedure Laterality Date HYSTERECTOMY 2014 COLONOSCOPY DIAGNOSTIC Family History Problem Relation Age of Onset Multiple Sclerosis Brother Social History Tobacco Use Smoking status: Never Smokeless tobacco: Never Vaping Use Vaping status: Never Used Substance Use Topics Alcohol use: Not Currently Drug use: Never Review of Systems Constitutional: Negative. HENT: Negative. Eyes: Negative. Respiratory: Negative for apnea and choking. Cardiovascular: Positive for palpitations. Gastrointestinal: Negative. Endocrine: Negative. Genitourinary: Negative. Musculoskeletal: Negative. Hematological: Negative. Physical Exam Smoking Status Never Physical Exam Vitals reviewed. HENT: Head: Normocephalic and atraumatic. Right Ear: Tympanic membrane normal. Left Ear: Tympanic membrane normal. Nose: Nose normal. Mouth/Throat: Mouth: Mucous membranes are moist. Eyes: Extraocular Movements: Extraocular movements intact. Cardiovascular: Rate and Rhythm: Normal rate. Heart sounds: Normal heart sounds. Pulmonary: Breath sounds: Normal breath sounds. Abdominal: Palpations: Abdomen is soft. Musculoskeletal: General: Normal range of motion. Cervical back: Normal range of motion and neck supple. Neurological: General: No focal deficit present. Mental Status: She is alert. ED Course Procedures Medical Decision Making No acute electrolyte abnormalities. Patient remains asymptomatic in the emergency room. EKGs consistent with normal sinus rhythm. Advised that there are no concerning dysrhythmias at this time however there was some nonspecific STT wave abnormalities noted in the inferior lateral leads. There are no prior EKGs for comparison. Patient was asymptomatic and cardiac enzymes are normal however advisedclose follow up tomorrow with the primary care physician to arrange for a stress test. Patient is agreeable with the plan and understands the need for close follow up. Amount and/or Complexity of Data Reviewed Labs: ordered. ECG/medicine tests: ordered. Details: Sinus tachycardia rate of 100 normal axis Andre Ramon MD 09/06/242011 Andre Ramon MD 09/06/242045 documented in this encounterUNC HEALTH [id number] History of Present illness Narrative* Viky Urrutia MD - 03/31/2024 1:50 PM EDT Subjective 03/31/2024 Gauri Goldman [id number] 1955 -Referring Provider for today's consult: Cynthia Sun DO -Primary Care Provider: Cynthia Sun History of Present Illness Gauri Goldman is a 69 y.o. female with a PMH of fatty liver, HTN and CHANO being referred for RUQ abdominal pain. Pt states she had an episode of RUQ abdominal pain, nausea and vomiting. She recently started Omeprazole. Denies dysphagia, blood in the stool. Pt states she feels normal when she wakes up in the morning and symptoms get worse throughout the day. She takes Magnesium 1-2 times a day for migraines.She treats joint pain with red light therapy and no longer takes Tylenol since symptoms started. She has altered her diet and mostly eats fish, fruits and vegetables. Pt states she has lost 7 lbs in the last 2 months. Past Medical History: Diagnosis Date Essential hypertension, benign Fatty liver Gallbladder polyp Past Surgical History: Procedure Laterality Date HYSTERECTOMY 2014 COLONOSCOPY DIAGNOSTIC Family History Problem Relation Age of Onset Multiple Sclerosis Brother Social History Tobacco Use Smoking status: Never Smokeless tobacco: Never Vaping Use Vaping status: Never Used Substance Use Topics Alcohol use: Not Currently Drug use: Never Allergies Allergen Reactions Not Able To Determine Nausea and Vomiting, Itchy Eyes, Abdominal Discomfort, Headache, Hypertensionand Dyspepsia Food and sulfite intolerance Current Outpatient Medications Medication Sig Ergocalciferol 1.25 MG (07992 UT) capsule Take by mouth. faMOTIdine 20 MG tablet Take 0.5 tablets by mouth 2 times daily. Loratadine 10 MG tablet Take by mouth. Losartan 25 MG tablet Take 1 tablet by mouth daily. Magnesium 400 MG capsule Take 400 mg by mouth daily. Meclizine 12.5 MG tablet TAKE 1 TO 2 TABLETS BY MOUTH THREE TIMES DAILY NEEDED OMEPRAZOLE PO Take 20 mg by mouth daily. Over the counter EPINEPHrine 0.3 MG/0.3ML Solution Auto-injector injection INJECT CONTENTS OF 1 PEN NEEDED FOR ALLERGIC REACTION Erythromycin 5 MG/GM Ointment ophthalmic ointment Apply a 1 cm ribbon of ointment to the lower eyelid on the left twice daily for 7 days Physical Exam Blood pressure 148/90, pulse 114, height 1.549 m (5' 1), weight 57.2 kg (126 lb), SpO2 97%. Body mass index is 23.81 kg/m . Physical Exam Constitutional: Alert, no acute distress. Head: Normocephalic. Eyes: No jaundice. Neck: Supple. Heart: Normal rate, regular rhythm. Lungs: Breath sounds normal bilaterally. No wheezes. no rales. Abdominal: Soft, nontender, nondistended, no masses palpable, no organomegaly. Rectal exam: Deferred. Extremities: No cyanosis or edema. Neurological: No focal deficits. Psych: Alert, oriented. GI: as per [facility] [place] GENERAL: Denies fever, denies chills EYES: Denies yellow discoloration ENT: Denies pain with swallowing or difficulty swallowing CARDIO: Denies chest pain, palpitations RESP: Denies SOB : Denies change in color of urine NEURO: Denies any weakness HEME: Denies any bruising MS: + arthritis - back and shoulder DERM: Denies rash or itching IMMUNOLOGIC: Denies food allergies or seasonal allergies Laboratory Data: 11/03/22 - Cologuard - Negative Imaging/Procedures: Hepatobiliary Img w/ Pharm Int 03/11/24 - Relatively prompt and homogeneous radiopharmaceutical concentration is noted by a normal sized liver. No parenchymal defects are identified. Gallbladder activity is identified at 30 minutes post radiopharmaceutical administration. Small intestinal tract is observed at 15 minutes following tracer injection. Washout of theradiopharmaceutical by the hepatic parenchyma appears qualitatively normal. Limited Abd US 11/11/23 - Fatty infiltration of liver. Small gallbladder polyps. Assessment and Plan: RUQ abdominal pain 03/31/24 - Pt states she had an episode of RUQ abdominal pain, nausea and vomiting. She recently started Omeprazole. Denies dysphagia, blood in the stool. Pt states she feels normal when she wakes up in the morning and symptoms get worse throughout the day. She takes Magnesium 1-2 times a day for migraines.She treats joint pain with red light therapy and no longer takes Tylenol since symptoms started. She has altered her diet and mostly eats fish, fruits and vegetables. Pt states she has lost 7 lbs in the last 2 months[address] Will check a [address]. If negative, then will do an EGD. 2. Gastroesophageal reflux disease without esophagitis 03/31/24 - Currently taking Omeprazole. She treats joint pain with red light therapy and no longer takes Tylenol since symptoms started. She has altered her diet and mostly eats fish, fruits and vegetables. 3. Encounter for screening colonoscopy 03/31/24 - Pt states her last colonoscopy was 17 years ago. On 11/03/22 Cologuard test was negative. Orders Placed This Encounter CT ABDOMEN WITH IV CONTRAST ONLY This documentation was done using The [employer] Dictation software. There may be errors that were overlooked in editing. I, Viyk Urrutia, personally performed the services described in the documentation as described by Tatiana Marie in my presence, and confirm it is both accurate and complete. I, Tatiana Marie am scribing for, and in the presence of Dr. Viky Urrutia. Scribe Initials: Date: 03/31/24 Time: 2:18 PM documented in this encounterUNC HEALTH [id number] Instructions* Patient Instructions* Renuka Mae - 03/31/2024 1:50 PM EDT Images from the original note were not included. documented in this encounterUNC HEALTH [id number] NoteHNO ID: [id number] Author: SHILPA LOMAS, Research Coordinator Service: ? Author Type: Research Type: Progress Notes Filed: 11/08/2023 23:08 Note Text: DATE:November 08, 2023 PT. NAME: Gauri Goldman [facility]#: [id number] IRB #: [id number]. PROTOCOL: [facility] Brain Study Cogeneration Operator: Jarrod Vazquez MD, , Clay Arvizu MD, [facility] training personnel supervisor for study related questions: Therese Marx Subject continues to give consent for participation and for procedures related to study YES. Were there changes made to the informed consent since the last visit? YES. If yes, were changes reviewed and explained to subject? YES Was a new copy of the informed consent signed, placed in the chart, placed in the study file and was a copy given to the patient? YES Patient Identification was verified by asking the patient's Name and Date Of : YES Time: 08:29 Blood drawn with vacutainer and labs drawn per protocol. Butterfly removed after blood draw and secured with sterile gauze. Patient tolerated procedure well. Shilpa Lomas Research CoordinatorHolmes [facility] History of Present illness Narrative* Shilpa Lomas Research Coordinator - 11/08/2023 11:07 PM EDT DATE:November 08, 2023 PT. NAME: Gauri Goldman [facility]#: [id number] IRB #: [id number]. PROTOCOL: [facility] Brain Study Cogeneration Operator: Jarrod Vazquez MD, , Clay Arvizu MD, [facility] training personnel supervisor for study related questions: Therese Marx Subject continues to give consent for participation and for procedures related to study YES. Were there changes made to the informed consent since the last visit? YES. If yes, were changes reviewed and explained to subject? YES Was a new copy of the informed consent signed, placed in the chart, placed in the study file and was a copy given to the patient? YES Patient Identification was verified by asking the patient's Name and Date Of : YES Time: 08:29 Blood drawn with vacutainer and labs drawn per protocol. Butterfly removed after blood draw and secured with sterile gauze. Patient tolerated procedure well. Shilpa Lomas Research Coordinator [facility] History of Present illness Narrative* Dsetiny Maxwell APRN.MOLD MAINTENANCE TECHNICIAN - 11/08/2023 9:30 AM EDT DATE: November 08, 2023 PT. NAME: Gauri Goldman [facility]#: [id number] IRB #: [id number]. PROTOCOL: [facility] Brain Study Cogeneration Operator: Jarrod Vazquez MD, , Clay Arvizu MD, [facility] training personnel supervisor for study related questions: Therese Marx Is today the participant's first study visit? Yes Were there changes made to the informed consent since the last visit? Not Applicable If yes, were changes reviewed and explained to subject? Not Applicable Was a new copy of the informed consent signed, placed in the chart, placed in the study file and was a copy given to the patient? Not Applicable Patient Identification was verified by asking the patients Name and Date Of : YES Subject continues to give consent for participation and for procedures related to study YES. Time:10:20 EKG/ECG was performed on patient. Patient tolerated procedure well. BP: 165 / 83 BP Site: right arm BP Position: sitting Cuff size: regular Pulse: 71 Resp: 16 SPO2: 99 Weight: 133 lbs Height: 5' 1 Result of Physical Exam Body System Eyes: Abnormal ,glasses present, ambylopia present Ears, Nose, Mouth and Throat: Normal Cardiovascular: Normal Respiratory: Normal Musculoskeletal: Normal Integumentary: Normal Handedness: Right hand Results of Mental Status Assessment Mental Assessments Attention: Abnormality Present: No Memory Working Memory: Abnormality Present: No Recent (Episodic) Memory: Abnormality Present: No Remote (Semantic) Memory: Abnormality Present: No Language Spontaneous Speech: Abnormality Present: No Comprehension: Abnormality Present: No Naming: Abnormality Present: No Repetition: Abnormality Present: No Reading: Abnormality Present: No Affect: Abnormality Present: No Craninal Nerve Assessment Visual Finn: Normal EOM: Normal Nystagmus: Physiologic Pupils: Equal and reactive Ptosis: Absent Trigeminal: Normal CN VII: Normal CN VIII: Normal CN IX: Normal CN X: Normal CN XI: Normal CN XII: Normal Assessment of Motor and Bulk and Tones Motor Assessments Muscle bulk-global: Normal Muscle tone-global: Normal Motor Strength Assessment Shoulder flexion: Right 5 Left 5 Shoulder external rotation: Right 5 Left 5 Shoulder abduction: Right 5 Left 5 Elbow flexion: Right 5 Left 5 Elbow extension: Right 5 Left 5 Wrist flexion: Right 5 Left 5 Wrist extension: Right 5 Left 5 Finger flexion/car porter: Right 5 Left 5 Flexor pollicis longus: Right 5 Left 5 Abductor pollicis brevis: Right 5 Left 5 Hip flexion: Right 5 Left 5 Hip extension: Right 5 Left 5 Hip abduction: Right 5 Left 5 Hip adduction: Right 5 Left 5 Knee flexion: Right 5 Left 5 Knee extension: Right 5 Left 5 Ankle eversion: Right 5 Left 5 Ankle inversion: Right 5 Left 5 Ankle plantar flexion: Right 5 Left 5 Ankle dorsiflexion: Right 5 Left 5 Extensor halluces longus: Right 5 Left 5 Flexor digitorum longus: Right 5 Left 5 Reflexes - MRC Grading Method Biceps: Right 2+ Left 2+ Triceps: Right 2+ Left 2+ Brachioradialis: Right 3+ Left 3+ Patellar: Right 2+ Left 2+ Achilles: Right 2+ Left 2+ Plantar: Right Downgoing Left Downgoing Weakness?: No Tremor: No Cerebellar/Coordination Assessment [id number]-ga-[id number]: Abnormality present: No, Nfwp-mi-[id number]: Abnormality present: No, Finger Tapping - Abnormality present: No Fist Open/Close - Abnormality present: No Pronation/Supination of the Hand - Abnormality present: No Toe Tapping - Abnormality present: No Heel Tapping - Abnormality present: No Gait Gait-global assessment: Normal Toe Walk: Normal Heel Walk: Normal Tandem Walk: Normal Romberg: Pass Sensory/Sensation Sensory System-globlal assessment: Abnormal Symmetry of Abnormality: Symmetric Location of Abnormality (select all that apply): Sensory Nerve Patient description of abnormal symptoms: Decreased temperature perception to bilateral great toes compared to midfeet Sensory modalities affected (select all that apply): Pain and temperature Destiny Maxwell APRN.[employer]OLD MAINTENANCE TECHNICIAN [facility] NoteHNO ID: [id number] Author: DESTINY MAXWELL APRN.CNP Service: ? Author Type: Nurse Practitioner Type: Progress Notes Filed: 11/08/2023 10:55 Note Text: DATE: November 08, 2023 PT. NAME: Gauri Goldman [facility]#: [id number] IRB #: [id number]. PROTOCOL: [facility] Brain Study Cogeneration Operator: Jarrod Vazquez MD, , Clay Arvizu MD, [facility] training personnel supervisor for study related questions: Therese Marx Is today the participant's first study visit? Yes Were there changes made to the informed consent since the last visit? Not Applicable If yes, were changes reviewed and explained to subject? Not Applicable Was a new copy of the informed consent signed, placed in the chart, placed in the study file and was a copy given to the patient? Not Applicable Patient Identification was verified by asking the patients Name and Date Of : YES Subject continues to give consent for participation and for procedures related to study YES. Time:10:20 EKG/ECG was performed on patient. Patient tolerated procedure well. BP: 165 / 83 BP Site: right arm BP Position: sitting Cuff size: regular Pulse: 71 Resp: 16 SPO2: 99 Weight: 133 lbs Height: 5' 1 Result of Physical Exam Body System Eyes: Abnormal ,glasses present, ambylopia present Ears, Nose, Mouth and Throat: Normal Cardiovascular: Normal Respiratory: Normal Musculoskeletal: Normal Integumentary: Normal Handedness: Right hand Results of Mental Status Assessment Mental Assessments Attention: Abnormality Present: No Memory Working Memory: Abnormality Present: No Recent (Episodic) Memory: Abnormality Present: No Remote (Semantic) Memory: Abnormality Present: No Language Spontaneous Speech: Abnormality Present: No Comprehension: Abnormality Present: No Naming: Abnormality Present: No Repetition: Abnormality Present: No Reading: Abnormality Present: No Affect: Abnormality Present: No Craninal Nerve Assessment Visual Finn: Normal EOM: Normal Nystagmus: Physiologic Pupils: Equal and reactive Ptosis: Absent Trigeminal: Normal CN VII: Normal CN VIII: Normal CN IX: Normal CN X: Normal CN XI: Normal CN XII: Normal Assessment of Motor and Bulk and Tones Motor Assessments Muscle bulk-global: Normal Muscle tone-global: Normal Motor Strength Assessment Shoulder flexion: Right 5 Left 5 Shoulder external rotation: Right 5 Left 5 Shoulder abduction: Right 5 Left 5 Elbow flexion: Right 5 Left 5 Elbow extension: Right 5 Left 5 Wrist flexion: Right 5 Left 5 Wrist extension: Right 5 Left 5 Finger flexion/car porter: Right 5 Left 5 Flexor pollicis longus: Right 5 Left 5 Abductor pollicis brevis: Right 5 Left 5 Hip flexion: Right 5 Left 5 Hip extension: Right 5 Left 5 Hip abduction: Right 5 Left 5 Hip adduction: Right 5 Left 5 Knee flexion: Right 5 Left 5 Knee extension: Right 5 Left 5 Ankle eversion: Right 5 Left 5 Ankle inversion: Right 5 Left 5 Ankle plantar flexion: Right 5 Left 5 Ankle dorsiflexion: Right 5 Left 5 Extensor halluces longus: Right 5 Left 5 Flexor digitorum longus: Right 5 Left 5 Reflexes - MRC Grading Method Biceps: Right 2+ Left 2+ Triceps: Right 2+ Left 2+ Brachioradialis: Right 3+ Left 3+ Patellar: Right 2+ Left 2+ Achilles: Right 2+ Left 2+ Plantar: Right Downgoing Left Downgoing Weakness?: No Tremor: No Cerebellar/Coordination Assessment Cebqtb-ji-Xohq: Abnormality present: No, Xkqn-nr-[id number]: Abnormality present: No, Finger Tapping - Abnormality present: No Fist Open/Close - Abnormality present: No Pronation/Supination of the Hand - Abnormality present: No Toe Tapping - Abnormality present: No Heel Tapping - Abnormality present: No Gait Gait-global assessment: Normal Toe Walk: Normal Heel Walk: Normal Tandem Walk: Normal Romberg: Pass Sensory/Sensation Sensory System-globlal assessment: Abnormal Symmetry of Abnormality: Symmetric Location of Abnormality (select all that apply): Sensory Nerve Patient description of abnormal symptoms: Decreased temperature perception to bilateral great toes compared to midfeet Sensory modalities affected (select all that apply): Pain and temperature Destiny Maxwell APRN.[facility]02-22-2024 History of Present illness Narrative* Ana Rubin MA - 09/03/2023 10:15 AM EST HPI Gauri Goldman is a 68 year old female who has been referred by Cynthia Sun DO for vertigo. For Dizziness: Onset: Last episode was in 2017 but recently has started having episodes have gotten worse. Description of dizziness: --Spinning Sensation: Presents --Disequilibrium: Present --Light Headed: Present Length of Dizziness episodes: hours Frequency Dizziness episodes: weekly Asociated Symptoms: Disequilibrium between episodes: Denies Falls: Denies Recent URI: Denies Spinning sensation while rolling over in bed: Present during episode Associated Hearing Loss: Denies Associated Aural Fullness: Present left Associated Tinnitus: Present Autophony: Present Occasionally Dizziness with Valsalva: Denies Sensation of hearing eyes move: Denies Personal or family history of migraine headaches: Denies Associated Photophobia: Denies Associated Phonophobia: Denies Still driving: Present Recent eye exam: Denies Medications: Denies patient reports she has meclizine she will use when she has episodes Imaging: Denies Review of Symptoms: CONSTITUTIONAL: Unexplained weight loss: denies. CARDIOVASCULAR: Chest pain: denies. Recent UT: denies. Chronic Heart Failure: denies. Heart Problem: denies. ENDOCRINE: Night Sweats: denies. Fatigue: denies. Diabetes: denies. ENT: Comments See HPI for details. GASTROINTESTINAL: Indigestion: denies. Heartburn: denies. HEMATOLOGY: Blood clotting problems: denies. NEUROLOGIC: Weakness: denies. Falls: denies. OPHTHALMOLOGIC: Eye pain: denies. PSYCHIATRIC: Thoughts of hurting themselves or anyone around them: denies. RESPIRATORY: Coughing Up Blood: denies. SKIN: Wounds that do not Heal: denies * Mahamed Kolb DO - 09/03/2023 10:15 AM EST Chief Comp vestibular migraine especially given the fact laint Chief Complaint Patient presents with New Patient Vertigo HPI Gauri Goldman is a 68 year old female who has been referred by Cynthia Sun DO for vertigo. For Dizziness: Onset: Last episode was in 2017 but recently has started having episodes have gotten worse. Description of dizziness: --Spinning Sensation: Presents --Disequilibrium: Present --Light Headed: Present Length of Dizziness episodes: hours Frequency Dizziness episodes: weekly Asociated Symptoms: Disequilibrium between episodes: Denies Falls: Denies Recent URI: Denies Spinning sensation while rolling over in bed: Present during episode Associated Hearing Loss: Denies Associated Aural Fullness: Present left Associated Tinnitus: Present Autophony: Present Occasionally Dizziness with Valsalva: Denies Sensation of hearing eyes move: Denies Personal or family history of migraine headaches: Denies Associated Photophobia: Denies Associated Phonophobia: Denies Still driving: Present Recent eye exam: Denies Medications: Denies patient reports she has meclizine she will use when she has episodes Imaging: Denies Review of Symptoms: CONSTITUTIONAL: Unexplained weight loss: denies. CARDIOVASCULAR: Chest pain: denies. Recent UT: denies. Chronic Heart Failure: denies. Heart Problem: denies. ENDOCRINE: Night Sweats: denies. Fatigue: denies. Diabetes: denies. ENT: Comments See HPI for details. GASTROINTESTINAL: Indigestion: denies. Heartburn: denies. HEMATOLOGY: Blood clotting problems: denies. NEUROLOGIC: Weakness: denies. Falls: denies. OPHTHALMOLOGIC: Eye pain: denies. PSYCHIATRIC: Thoughts of hurting themselves or anyone around them: denies. RESPIRATORY: Coughing Up Blood: denies. SKIN: Wounds that do not Heal: denies Past Medical/Surgical History Past Medical History: No date: Essential hypertension, benign No past surgical history on file. Past Family/Social History History reviewed. No pertinent family history. Social History Socioeconomic History Marital status: Tobacco Use Smoking status: Never Smokeless tobacco: Never Vaping Use Vaping status: Never Used Substance and Sexual Activity Alcohol use: Not Currently Drug use: Never Medications/Allergies/Immunizations Current Outpatient Medications Medication Sig EPINEPHrine 0.3 MG/0.3ML Solution Auto-injector injection INJECT CONTENTS OF 1 PEN NEEDED FOR ALLERGIC REACTION Ergocalciferol 1.25 MG (77862 UT) capsule Take by mouth. faMOTIdine 20 MG tablet Take 0.5 tablets by mouth 2 times daily. Loratadine 10 MG tablet Take by mouth. Losartan 25 MG tablet Take 1 tablet by mouth daily. Meclizine 12.5 MG tablet TAKE 1 TO 2 TABLETS BY MOUTH THREE TIMES DAILY NEEDED Erythromycin 5 MG/GM Ointment ophthalmic ointment Apply a 1 cm ribbon of ointment to the lower eyelid on the left twice daily for 7 days Allergies: Patient has no known allergies. Immunizations: There is no immunization history on file for this patient. VITALS: Vitals: 09/03/23 1019 BP: 142/84 Pulse: 78 Temp: 98.2 degrees F (36.8 degrees C) TempSrc: Temporal SpO2: 98% Weight: 61.5 kg (135 lb 9.6 oz) Height: 1.549 m (5' 1) CONSTITUTIONAL: Well-developed Well-nourished No acute distress APPEARANCE: Appears to be stated age HEAD: No masses or lesions No tenderness to palpation over the maxillary sinuses No tenderness to palpation over the frontal sinuses Submandibular glands are symmetric Parotid glands are symmetric Facial strength is symmetric EYES: Conjunctiva without injection Lids normal in appearance Extraocular movements intact Primary gaze normal EARS: Speech recognition thresholds are grossly intact Right Ear: Pinna is without lesion and fully developed External auditory canal is without stenosis, erythema, or edema and canal skin is intact Tympanic membrane is clear and without scarring, retraction, middle ear effusion, or perforation Left ear: Pinna is without lesion and fully developed External auditory canal is without stenosis, erythema, or edema and canal skin is intact Tympanic membrane is clear and without scarring, retraction, middle ear effusion, or perforation NOSE: Inferior turbinates are normal in appearance Septum is Deviated Right Nasal mucosa is normal in appearance There are no masses or polyps noted on anterior rhinoscopy ORAL CAVITY: Dentition adequate Mucous membranes are moist No oral lesions Tonsillar fossae are symmetric No redundancy of the soft palate and uvula Tongue displays full movement Mirror exam not tolerated due to gag reflex NECK: No cervical lymphadenopathy No neck mass No crepitus Symmetric Trachea is midline No thyroid enlargement, tenderness, or mass NEUROLOGIC: III/IV/- intact and symmetric V1, V2, V3- symmectric, sensation intact bilaterally House-Brackman I/ on Left House-Brackman I/ on Right IX-velum elevates symetrically X-voice is phonic XI/XII-symmetric mobility Melissa Hallpike Negative bilaterally. PSYCH: Patient is oriented to person, place, and time Mood and affect appear normal for age and mental capacity RESPIRATORY: Normal respiratory expansion Normal respiratory effort No stridor CARDIOVASCULAR: No JVD noted Carotid pulse 2+ bilaterally No cyanosis noted ADDITIONAL DATA: I reviewed the referring providers notes and this is summarized in the HPI. PROCEDURE: ASSESSMENT: ICD-10-CM 1. Dizziness R42 2. Vestibular migraine G43.809 3. Tinnitus, bilateral H93.13 PLAN: I discussed with the patient that there could be multiple etiologies for dizziness. We discussed that I believe that her dizziness is most likely due to vestibular migraine given the fact that she does have history of migraine aura. She will begin taking magnesium supplementation. We discussed foodavoidance and information was given to her on foods that can trigger migraine. Currently, the patient is not experiencing any dizziness or disequilibrium and if she begins to have more frequent dizziness episodes, she is to contact the office and at that time we will order a VNG and audiogram and then she will follow-up with me after that. documented in this encounterUNC HEALTH [id number] Instructions* Patient Instructions* Constantin Mir LPN - 09/03/2023 10:15 AM EST Images from the original note were not included. documented in this encounterUNC HEALTH [id number] Ulysses is a 67 y.o. female who presents to our office today for evaluation due to concerns regarding possible issues with food intolerances. She says back in the she avoids Maltodextran and then recently she has started to avoid MSG and with Xanthum Gum she had increased BP and some headache and with MSG she drinks 3L of water and she improves. She takes 25mg of Losartan and she takes 20mg of Claritin and her symptoms reportedly improve. She used to live in [place] and moved to [place] a year ago and she used to take Loratadine in the past in [place]. About 2 years ago, she had some facial angioedema and took Loratadine and she had an episode of facial swelling in December and she has experienced facial swelling once 2 years ago and then 2 months ago. She has used Claritin in the past for her issues and she will take 10mg and wait an hour and sometimes take another 10mg with good results. Her history is unremarkable for sinus issues and she does not use allergy medications otherwise at this time. Years ago, she used to use Flonase and Pepcid. -She denies a history of any previous urticaria or recurrent hives. An EpiPen was prescribed as a precaution just due to her camping/traveling. Environmental Survey/Social History: Lives alone Special Needs: None Preferred Language: Guinean Pets: No School/Daycare: retired, she used to be [employer] Smoking/Alcohol/Drug Use or Exposure: No Recreational Activities/Sports: Yes: she travels and camps frequently Review of Systems/Past Medical History: Constitutional: denies fever, chills, weight loss. Eyes: denies vision changes, color blindness. Ears, nose throat and mouth: see narrative above. No recurrent nasal or sinus symptoms. Respiratory: denies wheezing, cough or chest tightness/ see above narrative. Gastrointestinal: denies diarrhea, constipation, emesis. Genitourinary: denies dysuria or urine odor. Skin/integumentary: denies nail changes or other rash. Neurologic: denies seizures, weakness or speech problems. Hematologic/lymphatic: denies pallor. Allergic/Immunologic: see narrative above. No history of recurrent hives. *Regarding bee stings, no issues (she has been stung). History reviewed. No pertinent past medical history. History reviewed. No pertinent surgical history. Pelvic organ prolapse surgery. Current Outpatient Medications Medication Sig Dispense Refill vitamin D (ERGOCALCIFEROL) 1.25 MG (86383 UT) capsule Take by mouth losartan (COZAAR) 25 MG TABS tablet Take 1 Tablet (25 mg) by mouth daily EPINEPHrine (EPIPEN 2-BERTO IJ) Inject as directed loratadine (CLARITIN) 10 MG tablet Take by mouth famotidine (PEPCID) 20 MG tablet Take 0.5 Tablets (10 mg) by mouth 2 times daily No current facility-administered medications for this visit. History reviewed. No pertinent family history. Allergies: NKDA. PE: Nursing note and Vital signs reviewed. BP 128/78 (BP Site: Right Arm, Patient Position: Sitting, BP Cuff Size: Adult) Pulse 78 Temp 36.7 C (98 F) (Temporal) Ht (!) 154.9 cm Wt 59.2 kg BMI 24.66 kg/m Constitutional: She was awake, alert and in no apparent distress. Conjunctivae: clear. Nasal mucosa: normal. Nasal turbinates: normal. No polyps visualized. Tympanic membranes: clear. Throat: clear. She did not have cervical adenopathy. Lungs: clear to auscultation bilaterally. Cardio: regular rate and rhythm. Musculoskeletal: good upper extremity strength bilaterally. Neuro: oriented to time and place, good interaction. Skin: upper extremities clear at this visit. *No testing agents exist for Xanthum gum, monothiamine and monosodium glutamate and this was discussed with her. 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 Also, she may be experiencing something called Monosodium glutamate symptom complex which is not a true allergic reaction. Her history is unremarkable for urticaria or symptoms of anaphylaxis or for asthma or other issues regarding atopy. Possibly in the , you could have experienced issues with higher amounts of sulfites placed in foods as a preservative. Taking Loratadine seems to be somewhat helpful and she has an EpiPen as a precaution and she asked about bee sting allergy at this visit. The benefits, side effects of the treatment and treatment alternatives were discussed. Plan Regarding Xanthum gum, monothiamine and monosodium glutamate, no testing agent exists for these compounds. Also, you may be experiencing something called Monosodium glutamate symptom complex which is not a true allergic reaction and please see information on this from Up To Date. For now, all I can recommend is avoidance of these compounds as much as you can. You may continue with OTC Loratadine 10mg at 1 tablet daily if needed and again 1 hour (more content not included)...[facility]02-13-2023 Physician Emergency department Note* Rick Austin, DO - 08/25/2022 5:46 AM EST History Chief Complaint Patient presents with Eye Pain Pain to left eye onset 0300, she states it is a burning with an occasional stabbing feeling. It feels like there may be a foreign object in the eye. 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 This patient is a 67-year-old female presents to the emergency department with complaint of pain inthe left eye. She says it is a sharp pain. She states that she started having pain when she woke upthis morning at about 3:00 a.m.. She says that the pain is the a constant steady pain. She denies any injuries to the eye. 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 She denies any other significant issues or concerns with the eye. She felt like she needed to come to the ER to be further evaluated. The history is provided by the patient. No interpreter and translator was used. No past medical history on file. No past surgical history on file. No family history on file. No Known Allergies Current Outpatient Medications Medication Instructions Erythromycin 5 MG/GM Ointment ophthalmic ointment Apply a 1 cm ribbon of ointment to the lower eyelid on the left twice daily for 7 days Review of Systems Constitutional: Negative. Negative for activity change, fatigue and fever. HENT: Negative. Negative for dental problem, ear pain, nosebleeds, rhinorrhea, sore throat and trouble swallowing. Eyes: Positive for pain and redness. Negative for photophobia, discharge and visual disturbance. Respiratory: Negative. Negative for apnea, cough, chest tightness, shortness of breath and wheezing. Cardiovascular: Negative. Negative for chest pain, palpitations and leg swelling. Gastrointestinal: Negative. Negative for abdominal distention, abdominal pain, blood in stool, constipation, diarrhea, nausea and vomiting. Endocrine: Negative. Negative for polydipsia, polyphagia and polyuria. Genitourinary: Negative. Negative for difficulty urinating, dysuria, flank pain, frequency, pelvic pain, vaginal bleeding and vaginal discharge. Musculoskeletal: Negative. Negative for arthralgias, back pain, gait problem, joint swelling, myalgias, neck pain and neck stiffness. Skin: Negative. Negative for color change, rash and wound. Allergic/Immunologic: Negative. Negative for environmental allergies. Neurological: Negative. Negative for dizziness, tremors, seizures, syncope, facial asymmetry, speech difficulty, weakness, light-headedness, numbness and headaches. Hematological: Negative. Negative for adenopathy. Psychiatric/Behavioral: Negative. Negative for agitation, behavioral problems, confusion, hallucinations, self-injury, sleep disturbance and suicidal ideas. Physical Exam BP (!) 179/94 Pulse 95 Temp 97.7 F (36.5 C) (Oral) Resp 18 Ht 1.549 m (5' 1) SpO2 96% Physical Exam Vitals and nursing note reviewed. Constitutional: General: She is not in acute distress. Appearance: Normal appearance. She is not ill-appearing, toxic-appearing or diaphoretic. HENT: Head: Normocephalic and atraumatic. Right Ear: External ear normal. Left Ear: External ear normal. Nose: Nose normal. No rhinorrhea. Mouth/Throat: Mouth: Mucous membranes are moist. Pharynx: No posterior oropharyngeal erythema. Eyes: General: No scleral icterus. Right eye: No discharge. Left eye: No discharge. Extraocular Movements: Extraocular movements intact. Conjunctiva/sclera: Conjunctivae normal. Pupils: Pupils are equal, round, and reactive to light. Comments: Scleral erythema left eye Cardiovascular: Rate and Rhythm: Normal rate and regular rhythm. Heart sounds: Normal heart sounds. Pulmonary: Effort: Pulmonary effort is normal. No respiratory distress. Breath sounds: Normal breath sounds. No wheezing or rhonchi. Abdominal: General: Abdomen is flat. Bowel sounds are normal. Palpations: Abdomen is soft. Musculoskeletal: General: No swelling, deformity or signs of injury. Normal range of motion. Cervical back: Normal range of motion. Skin: General: Skin is warm and dry. Coloration: Skin is not jaundiced or pale. Findings: No bruising, erythema, lesion or rash. Neurological: General: No focal deficit present. Mental Status: She is alert and oriented to person, place, and time. Mental status is at baseline. Cranial Nerves: No cranial nerve deficit. Psychiatric: Mood and Affect: Mood normal. Behavior: Behavior normal. Thought Content: Thought content normal. Judgment: Judgment normal. ED Course Procedures Medical Decision Making Based on this patient's presentation and physical examination. The patient is receiving some erythromycin for the left eye for which I believe she has some conjunctivitis. I do not see any corneal abrasions on the examination. I am discussing with her of like for her to follow-up with her primary care provider. If her symptoms change or worsen she is welcome return to the emergency department. Conjunctivitis of left eye, unspecified conjunctivitis type: acute illness or injury Risk Prescription drug management. Rick Austin DO 08/25/22 0551 [facility]02-13-2023 Emergency department Note* Rick Austin DO - 08/25/2022 5:46 AM EST History Chief Complaint Patient presents with Eye Pain Pain to left eye onset 0300, she states it is a burning with an occasional stabbing feeling. It feels like there may be a foreign object in the eye. 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 This patient is a 67-year-old female presents to the emergency department with complaint of pain inthe left eye. She says it is a sharp pain. She states that she started having pain when she woke upthis morning at about 3:00 a.m.. She says that the pain is the a constant steady pain. She denies any injuries to the eye. 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 She denies any other significant issues or concerns with the eye. She felt like she needed to come to the ER to be further evaluated. The history is provided by the patient. No interpreter and translator was used. No past medical history on file. No past surgical history on file. No family history on file. No Known Allergies Current Outpatient Medications Medication Instructions Erythromycin 5 MG/GM Ointment ophthalmic ointment Apply a 1 cm ribbon of ointment to the lower eyelid on the left twice daily for 7 days Review of Systems Constitutional: Negative. Negative for activity change, fatigue and fever. HENT: Negative. Negative for dental problem, ear pain, nosebleeds, rhinorrhea, sore throat and trouble swallowing. Eyes: Positive for pain and redness. Negative for photophobia, discharge and visual disturbance. Respiratory: Negative. Negative for apnea, cough, chest tightness, shortness of breath and wheezing. Cardiovascular: Negative. Negative for chest pain, palpitations and leg swelling. Gastrointestinal: Negative. Negative for abdominal distention, abdominal pain, blood in stool, constipation, diarrhea, nausea and vomiting. Endocrine: Negative. Negative for polydipsia, polyphagia and polyuria. Genitourinary: Negative. Negative for difficulty urinating, dysuria, flank pain, frequency, pelvic pain, vaginal bleeding and vaginal discharge. Musculoskeletal: Negative. Negative for arthralgias, back pain, gait problem, joint swelling, myalgias, neck pain and neck stiffness. Skin: Negative. Negative for color change, rash and wound. Allergic/Immunologic: Negative. Negative for environmental allergies. Neurological: Negative. Negative for dizziness, tremors, seizures, syncope, facial asymmetry, speech difficulty, weakness, light-headedness, numbness and headaches. Hematological: Negative. Negative for adenopathy. Psychiatric/Behavioral: Negative. Negative for agitation, behavioral problems, confusion, hallucinations, self-injury, sleep disturbance and suicidal ideas. Physical Exam BP (!) 179/94 Pulse 95 Temp 97.7 F (36.5 C) (Oral) Resp 18 Ht 1.549 m (5' 1) SpO2 96% Physical Exam Vitals and nursing note reviewed. Constitutional: General: She is not in acute distress. Appearance: Normal appearance. She is not ill-appearing, toxic-appearing or diaphoretic. HENT: Head: Normocephalic and atraumatic. Right Ear: External ear normal. Left Ear: External ear normal. Nose: Nose normal. No rhinorrhea. Mouth/Throat: Mouth: Mucous membranes are moist. Pharynx: No posterior oropharyngeal erythema. Eyes: General: No scleral icterus. Right eye: No discharge. Left eye: No discharge. Extraocular Movements: Extraocular movements intact. Conjunctiva/sclera: Conjunctivae normal. Pupils: Pupils are equal, round, and reactive to light. Comments: Scleral erythema left eye Cardiovascular: Rate and Rhythm: Normal rate and regular rhythm. Heart sounds: Normal heart sounds. Pulmonary: Effort: Pulmonary effort is normal. No respiratory distress. Breath sounds: Normal breath sounds. No wheezing or rhonchi. Abdominal: General: Abdomen is flat. Bowel sounds are normal. Palpations: Abdomen is soft. Musculoskeletal: General: No swelling, deformity or signs of injury. Normal range of motion. Cervical back: Normal range of motion. Skin: General: Skin is warm and dry. Coloration: Skin is not jaundiced or pale. Findings: No bruising, erythema, lesion or rash. Neurological: General: No focal deficit present. Mental Status: She is alert and oriented to person, place, and time. Mental status is at baseline. Cranial Nerves: No cranial nerve deficit. Psychiatric: Mood and Affect: Mood normal. Behavior: Behavior normal. Thought Content: Thought content normal. Judgment: Judgment normal. ED Course Procedures Medical Decision Making Based on this patient's presentation and physical examination. The patient is receiving some erythromycin for the left eye for which I believe she has some conjunctivitis. I do not see any corneal abrasions on the examination. I am discussing with her of like for her to follow-up with her primary care provider. If her symptoms change or worsen she is welcome return to the emergency department. Conjunctivitis of left eye, unspecified conjunctivitis type: acute illness or injury Risk Prescription drug management. Rick Austin DO 08/25/22 0551 documented in [facility] encounter[id number] Hospital Discharge instructions* Discharge Instructions* Rick Austin - 08/25/2022 5:42 AM EST Based on this patient's presentation and physical examination. The patient is receiving some erythromycin for the left eye for which I believe she has some conjunctivitis. I do not see any corneal abrasions on the examination. I am discussing with her of like for her to follow-up with her primary care provider. If her symptoms change or worsen she is welcome return to the emergency department. Blood pressure screening, when you had your blood pressure taken today if the top number was greater than 120 with the bottom number that was greater than 80, we discussed in I recommended that you call your primary care provider or physician of your choice this week to arrange for a follow-up visit. Hypertension put you at risk for stroke, heart attack, kidney failure and other life-threatening diseases. This screening exam and recommendation is to follow- up with your family physician. We discussed reasons why the elevation could be occurring for you at this time. If you had an EKG and, or x-ray performed in the emergency department, it will be reviewed by the company driver and, or radiologist. If the repeat view changes the diagnosis or treatment you will be contacted at the phone number you provided. Prescribed outpatient testing, please call to schedule an appointment for the test that was orderedon the form that was provided to you. If you have been prescribed an antibiotic, please take the antibiotic as instructed until it is completely finished. If he cannot tolerate the medication for some reason, call your primary care provider for replacement. If you had a specimen collected, collected specimen such as cultures may take up to 48-72 hours to generate results. Will be contacted if a change in treatment is needed. If you would like to know those results please feel free to call the [place] medical records to obtain results. If your condition changes, if your condition changes or worsens or you have further concerns that you feel need to be addressed in the emergency department such as the development of shortness of breath or chest pain, severe pain, nausea and vomiting, or stroke-like symptoms. Please return to the emergency department of your choice promptly. Prescriptions, if you received a prescription medication that may cause drowsiness such as tramadol, Phenergan, trazodone, diazepam, lorazepam, hydroxyzine, Xanax, hydrocodone, oxycodone, codeine or any other medications that may make you sleepy. Do not drive or drink alcohol, or operate machinery t hat requires you to be alert for at least 8 hours after taking that medication. You may have had prescriptions that have been sent electronically or printed. Please be sure to take those to the pharmacy or pick them up from the pharmacy as soon as possible. These medications areimportant in the treatment of your healthcare issues. Tobacco products, if you use tobacco products it is highly recommended that you discuss with your primary care provider options to help with the cessation of use. Follow-up, it is strongly recommended that you follow-up with your primary care provider. If you were given a referral to a specialist it is strongly recommended that you also make an appointment with that specialist as soon as possible. If you need help finding 1 of these providers you can go to: [email or web address] or call [facility] at [phone] [facility] at [phone] [facility] at [phone] * Attachments The following attachments cannot be sent through Care Everywhere. * Conjunctivitis ([place]) [facility] noteNo assessment information availableWOhio[facility] Work Phone: Evaluation note* Diagnosis Dizziness- Primary Dizziness and giddiness Vestibular migraine Tinnitus, bilateral Unspecified tinnitus documented [facility]* Diagnosis Research exam- Primary Examination of participant in clinical trial [facility]* Diagnosis RUQ pain- Primary Abdominal pain, right upper quadrant Gastroesophageal reflux disease without esophagitis Esophageal reflux Encounter for screening colonoscopy Special screening for malignant neoplasms, colon documented [facility] this [facility]* Diagnosis RUQ pain Abdominal pain, right upper quadrant documented in this [facility] note* Diagnosis Conjunctivitis of left eye, unspecified conjunctivitis type- Primary documented in this [facility] note* Diagnosis Palpitations- Primary documented in this [facility] note* Diagnosis Precordial pain- Primary Unstable angina Intermediate coronary syndrome Abnormal cardiovascular stress test Other nonspecific abnormal cardiovascular system function study documented [facility] this [facility]* Diagnosis Chest pain- Primary Chest pain, unspecified Other chest pain Abnormal stress test Other nonspecific abnormal cardiovascular system function study Abnormal stress test Other nonspecific abnormal cardiovascular system function study [facility]* Diagnosis Research exam- Primary Examination of participant in clinical trial [facility] Diagnosis Hospital discharge follow-up- Primary Other follow-up examination Palpitations documented in this encounter [facility] Discharge instructions* Attachments The following attachments cannot be sent through Care Everywhere. * Cardiac Cath Care After - Wrist Site ([facility]) (Guinean) * Aspirin ([place]inean) * Metoprolol ([place]inean) documented in this encounterUNC [facility]AMInstructions* Name Dates Details Patient Instructions Indication:HTN (hypertension) Start:07-Apr-2022 Instruction Type:Provider Instructions for Treatment How to Access Health Informa tion Online using Patient Portal and [employer] Apps Indication:HTN (hypertension) Start:07-Apr-2022 Instruction Type:Patient Education [facility]; [facility] Work Phone: instructions* Name Dates Details Patient Instructions Indication:HTN (hypertension) Start:07-Apr-2022 Instruction Type:Provider Instructions for Treatment How to Access Health Informa tion Online using Patient Portal and [employer] Indication:HTN (hypertension) Start:07-Apr-2022 Instruction Type:Patient Education [facility]; [facility] Work Phone: instructions* Name Dates Details Patient Instructions Indication:HTN (hypertension) Start:01-Oct-2022 Instruction Type:Provider Instructions for Treatment How to Access Health Informa tion Online using Patient Portal and [employer] Indication:HTN (hypertension) Start:01-Oct-2022 Instruction Type:Patient Education Patient Instructions Indication:HTN (hypertension) Start:07-Apr-2022 Instruction Type:Provider Instructions for Treatment How to Access Health Informa tion Online using Patient Portal and [employer] Indication:HTN (hypertension) Start:07-Apr-2022 Instruction Type:Patient Education [facility]; [facility] Work Phone: instructions* Name Dates Details Patient Instructions Indication:[facility] Start:15-Oct-2022 Instruction Type:Provider Instructions for Treatment How to Access Health Informa tion Online using Patient Portal and [employer] Indication:[facility] Start:15-Oct-2022 Instruction Type:Patient Education Patient Instructions Indication:HTN (hypertension) Start:01-Oct-2022 Instruction Type:Provider Instructions for Treatment How to Access Health Informa tion Online using Patient Portal and [employer] Apps Indication:HTN (hypertension) Start:01-Oct-2022 Instruction Type:Patient Education Patient Instructions Indication:HTN (hypertension) Start:07-Apr-2022 Instruction Type:Provider Instructions for Treatment How to Access Health Informa tion Online using Patient Portal and [employer] Apps Indication:HTN (hypertension) Start:07-Apr-2022 Instruction Type:Patient Education [facility]; [facility] Work Phone: instructions* Name Dates Details Patient Instructions Indication:[facility] Start:15-Oct-2022 Instruction Type:Provider Instructions for Treatment How to Access Health Informa tion Online using Patient Portal and [employer] Apps Indication:[facility] Start:15-Oct-2022 Instruction Type:Patient Education Patient Instructions Indication:HTN (hypertension) Start:01-Oct-2022 Instruction Type:Provider Instructions for Treatment How to Access Health Informa tion Online using Patient Portal and [employer] Apps Indication:HTN (hypertension) Start:01-Oct-2022 Instruction Type:Patient Education Patient Instructions Indication:HTN (hypertension) Start:07-Apr-2022 Instruction Type:Provider Instructions for Treatment How to Access Health Informa tion Online using Patient Portal and [employer] Apps Indication:HTN (hypertension) Start:07-Apr-2022 Instruction Type:Patient Education [facility]; [facility] Work Phone: Instructions* Name Dates Details Patient Instructions Indication:[facility] Start:15-Oct-2022 Instruction Type:Provider Instructions for Treatment How to Access Health Informa tion Online using Patient Portal and [employer] Apps Indication:[facility] Start:15-Oct-2022 Instruction Type:Patient Education Patient Instructions Indication:HTN (hypertension) Start:01-Oct-2022 Instruction Type:Provider Instructions for Treatment How to Access Health Informa tion Online using Patient Portal and [employer] Apps Indication:HTN (hypertension) Start:01-Oct-2022 Instruction Type:Patient Education Patient Instructions Indication:HTN (hypertension) Start:07-Apr-2022 Instruction Type:Provider Instructions for Treatment How to Access Health Informa tion Online using Patient Portal and [employer] Apps Indication:HTN (hypertension) Start:07-Apr-2022 Instruction Type:Patient Education [facility]; [facility] Work Phone: instructions* Name Dates Details Patient Instructions Indication:[facility] Start:15-Oct-2022 Instruction Type:Provider Instructions for Treatment How to Access Health Informa tion Online using Patient Portal and [employer] Apps Indication:[facility] Start:15-Oct-2022 Instruction Type:Patient Education Patient Instructions Indication:HTN (hypertension) Start:01-Oct-2022 Instruction Type:Provider Instructions for Treatment How to Access Health Informa tion Online using Patient Portal and [employer] Apps Indication:HTN (hypertension) Start:01-Oct-2022 Instruction Type:Patient Education Patient Instructions Indication:HTN (hypertension) Start:07-Apr-2022 Instruction Type:Provider Instructions for Treatment How to Access Health Informa tion Online using Patient Portal and [employer] Apps Indication:HTN (hypertension) Start:07-Apr-2022 Instruction Type:Patient Education [facility]; [facility] Work Phone: instructions* Name Dates Details Patient Instructions Indication:[facility] Start:15-Oct-2022 Instruction Type:Provider Instructions for Treatment How to Access Health Informa tion Online using Patient Portal and [employer] Apps Indication:[facility] Start:15-Oct-2022 Instruction Type:Patient Education Patient Instructions Indication:HTN (hypertension) Start:01-Oct-2022 Instruction Type:Provider Instructions for Treatment How to Access Health Informa tion Online using Patient Portal and [employer] Apps Indication:HTN (hypertension) Start:01-Oct-2022 Instruction Type:Patient Education Patient Instructions Indication:HTN (hypertension) Start:07-Apr-2022 Instruction Type:Provider Instructions for Treatment How to Access Health Informa tion Online using Patient Portal and [employer] Indication:HTN (hypertension) Start:07-Apr-2022 Instruction Type:Patient Education [facility]; [facility] Work Phone: instructions* Name Dates Details Patient Instructions Indication:Allergic reaction Start:03-Nov-2022 Instruction Type:Provider Instructions for Treatment How to Access Health Informa tion Online using Patient Portal and [employer] Apps Indication:Allergic reaction Start:03-Nov-2022 Instruction Type:Patient Education Patient Instructions Indication:[facility] Start:15-Oct-2022 Instruction Type:Provider Instructions for Treatment How to Access Health Informa tion Online using Patient Portal and [employer] Apps Indication:[facility] Start:15-Oct-2022 Instruction Type:Patient Education Patient Instructions Indication:HTN (hypertension) Start:01-Oct-2022 Instruction Type:Provider Instructions for Treatment How to Access Health Informa tion Online using Patient Portal and [employer] Apps Indication:HTN (hypertension) Start:01-Oct-2022 Instruction Type:Patient Education Patient Instructions Indication:HTN (hypertension) Start:07-Apr-2022 Instruction Type:Provider Instructions for Treatment How to Access Health Informa tion Online using Patient Portal and [employer] Apps Indication:HTN (hypertension) Start:07-Apr-2022 Instruction Type:Patient Education [facility]; [facility] Work Phone: instructions* Name Dates Details Patient Instructions Indication:Allergic reaction Start:03-Nov-2022 Instruction Type:Provider Instructions for Treatment How to Access Health Informa tion Online using Patient Portal and [employer] Apps Indication:Allergic reaction Start:03-Nov-2022 Instruction Type:Patient Education Patient Instructions Indication:[facility] Start:15-Oct-2022 Instruction Type:Provider Instructions for Treatment How to Access Health Informa tion Online using Patient Portal and [employer] Apps Indication:[facility] Start:15-Oct-2022 Instruction Type:Patient Education Patient Instructions Indication:HTN (hypertension) Start:01-Oct-2022 Instruction Type:Provider Instructions for Treatment How to Access Health Informa tion Online using Patient Portal and [employer] Apps Indication:HTN (hypertension) Start:01-Oct-2022 Instruction Type:Patient Education Patient Instructions Indication:HTN (hypertension) Start:07-Apr-2022 Instruction Type:Provider Instructions for Treatment How to Access Health Informa tion Online using Patient Portal and [employer] Indication:HTN (hypertension) Start:07-Apr-2022 Instruction Type:Patient Education [facility]; [facility] Work Phone: instructions* Name Dates Details Patient Instructions Indication:Allergic reaction Start:03-Nov-2022 Instruction Type:Provider Instructions for Treatment How to Access Health Informa tion Online using Patient Portal and [employer] Apps Indication:Allergic reaction Start:03-Nov-2022 Instruction Type:Patient Education Patient Instructions Indication:[facility] Start:15-Oct-2022 Instruction Type:Provider Instructions for Treatment How to Access Health Informa tion Online using Patient Portal and [employer] Apps Indication:[facility] Start:15-Oct-2022 Instruction Type:Patient Education Patient Instructions Indication:HTN (hypertension) Start:01-Oct-2022 Instruction Type:Provider Instructions for Treatment How to Access Health Informa tion Online using Patient Portal and [employer] Apps Indication:HTN (hypertension) Start:01-Oct-2022 Instruction Type:Patient Education Patient Instructions Indication:HTN (hypertension) Start:07-Apr-2022 Instruction Type:Provider Instructions for Treatment How to Access Health Informa tion Online using Patient Portal and [employer] Apps Indication:HTN (hypertension) Start:07-Apr-2022 Instruction Type:Patient Education [facility]; [facility] Work Phone: [employer]* Name Dates Details Patient Instructions Indication:Allergic reaction Start:03-Nov-2022 Instruction Type:Provider Instructions for Treatment How to Access Health Informa tion Online using Patient Portal and [employer] Apps Indication:Allergic reaction Start:03-Nov-2022 Instruction Type:Patient Education Patient Instructions Indication:[facility] Start:15-Oct-2022 Instruction Type:Provider Instructions for Treatment How to Access Health Informa tion Online using Patient Portal and [employer] Apps Indication:[facility] Start:15-Oct-2022 Instruction Type:Patient Education Patient Instructions Indication:HTN (hypertension) Start:01-Oct-2022 Instruction Type:Provider Instructions for Treatment How to Access Health Informa tion Online using Patient Portal and [employer] Apps Indication:HTN (hypertension) Start:01-Oct-2022 Instruction Type:Patient Education Patient Instructions Indication:HTN (hypertension) Start:07-Apr-2022 Instruction Type:Provider Instructions for Treatment How to Access Health Informa tion Online using Patient Portal and [employer] Apps Indication:HTN (hypertension) Start:07-Apr-2022 Instruction Type:Patient Education [facility]; [facility] Work Phone: instructions* Name Dates Details Patient Instructions Indication:Allergic reaction Start:03-Nov-2022 Instruction Type:Provider Instructions for Treatment How to Access Health Informa tion Online using Patient Portal and [employer] Apps Indication:Allergic reaction Start:03-Nov-2022 Instruction Type:Patient Education Patient Instructions Indication:[facility] Start:15-Oct-2022 Instruction Type:Provider Instructions for Treatment How to Access Health Informa tion Online using Patient Portal and [employer] Apps Indication:[facility] Start:15-Oct-2022 Instruction Type:Patient Education Patient Instructions Indication:HTN (hypertension) Start:01-Oct-2022 Instruction Type:Provider Instructions for Treatment How to Access Health Informa tion Online using Patient Portal and [employer] Indication:HTN (hypertension) Start:01-Oct-2022 Instruction Type:Patient Education Patient Instructions Indication:HTN (hypertension) Start:07-Apr-2022 Instruction Type:Provider Instructions for Treatment How to Access Health Informa tion Online using Patient Portal and [employer] Apps Indication:HTN (hypertension) Start:07-Apr-2022 Instruction Type:Patient Education [facility]; [facility] Work Phone: Instructions* Name Dates Details Patient Instructions Indication:BMI 25.0-25.9,adult Start:20-Jan-2023 Instruction Type:Provider Instructions for Treatment How to Access Health Informa tion Online using Patient Portal and [employer] Indication:BMI 25.0-25.9,adult Start:20-Jan-2023 Instruction Type:Patient Education Patient Instructions Indication:Allergic reaction Start:03-Nov-2022 Instruction Type:Provider Instructions for Treatment How to Access Health Informa tion Online using Patient Portal and [employer] Indication:Allergic reaction Start:03-Nov-2022 Instruction Type:Patient Education Patient Instructions Indication:[facility] Start:15-Oct-2022 Instruction Type:Provider Instructions for Treatment How to Access Health Informa tion Online using Patient Portal and [employer] Apps Indication:[facility] Start:15-Oct-2022 Instruction Type:Patient Education Patient Instructions Indication:HTN (hypertension) Start:01-Oct-2022 Instruction Type:Provider Instructions for Treatment How to Access Health Informa tion Online using Patient Portal and [employer] Indication:HTN (hypertension) Start:01-Oct-2022 Instruction Type:Patient Education Patient Instructions Indication:HTN (hypertension) Start:07-Apr-2022 Instruction Type:Provider Instructions for Treatment How to Access Health Informa tion Online using Patient Portal and [employer] Apps Indication:HTN (hypertension) Start:07-Apr-2022 Instruction Type:Patient Education [facility]; [facility] Work Phone: reason for referral (narrative)* Radiology (Emergency) - New Request Specialty Diagnoses / Procedures Referred By Contac t Referred To Contact Procedures ECG Andre Ramon MD [address] [place] [phone] Phone: tel: fax: Referral ID Status Reason Start Date Expiration Date V isits Requested Visits Authorized [id number] New Request 09/06/2024 10/01/2025 1 1 [facility] Radiology (Emergency) - New Request Specialty Diagnoses / Procedures Referred By Contac t Referred To Contact Procedures ECG Rina Thomas MD [address] [place] [address] Phone: tel: fax: Referral ID Status Reason Start Date Expiration Date V isits Requested Visits Authorized [id number] New Request 09/23/2024 10/18/2025 1 1 [facility] Unlisted Procedure Code (Routine) - New Request Specialty Diagnoses / Procedures Referred By Contac t Referred To Contact Procedures DVT/VTE RISK ASSESSMENT Maryana Torres APRN-CNP [address] [place] [phone] Phone: tel: fax: Referral ID Status Reason Start Date Expiration Date V isits Requested Visits Authorized [id number] New Request 09/23/2024 10/18/2025 1 1 * Unlisted Procedure Code (Routine) - New Request Specialty Diagnoses / Procedures Referred By Contac t Referred To Contact Procedures LOW RISK - NO PHARMACOLOGICAL DVT PROPHYLAXIS Maryana Torres APRN-CNP [address] [place] [phone] Phone: tel: fax: Referral ID Status Reason Start Date Expiration Date V isits Requested Visits Authorized [id number] New Request 09/23/2024 10/18/2025 1 1 [facility] for referral (narrative)No reason for referral information availableWOhio[facility] Work Phone: Reldb[facility] for visit Narrative* Auth/Cert Specialty Diagnoses / Procedures Referred By Contac t Referred To Contact Diagnoses CHEST PAIN Gem Galvan MD [address] [place] [address], [address] [place] [address] Phone: tel: fax: [address] [phone] Referral ID Status Reason Start Date Expiration Date Visits Re quested Visits Authorized [id number] 1 1 [facility] Family History Relationship Condition Age at Onset Recorded Date/T saúl Not Specified Diabetes mellitus Unknown Heart disease Unknown Malignant neoplasm of breast Unknown Multiple sclerosis Unknown No Family History Records FoundUnknown Family Member Name Dates Details Brother 1 Comments:-doesnt go to docto r Status:Active Brother 2 Comments:age 64- ms since in his 50s Status:Active Family Members In General Comments:uncle pancreatic ca ncer and uncle spinal cancer- also cad and dm in family Status:Active Father Comments: alcohol dm not sure age- chronic renal disease from diabetes wouldnt go to dialysis Status:Active Mother Comments: of heart attac k lots of medical problems -78 Status:Active Summary Purpose Advance Directives No Advanced Directives Records Found Advance Directive Response Recorded Date/ Time Advance Directives No August 8:22am Date Activated Date Inactivated Comments 09/23/2024 4:37 PM Date Activated Date Inactivated Comments 09/26/2024 4:12 PM Date Activated Date Inactivated Comments 09/23/2024 4:37 PM 09/26/2024 4:12 PM Date Activated Date Inactivated Comments 09/26/2024 4:12 PM Date Activated Date Inactivated Comments 09/23/2024 4:37 PM 09/26/2024 4:12 PM Advance Directive Response Recorded Date/ Time Advance Directives No October 26 9:22am Chief Complaint and Reason for Visit Chief Complaint XRAY XRAY ADRENAL NODULE *ADRENAL PROTOCOL* L KNEE,L SHLD PN/RX HERE Chief Complaint XRAY XRAY ADRENAL NODULE *ADRENAL PROTOCOL* L KNEE,L SHLD PN/RX HERE MENOPAUSAL STATE Chief Complaint XRAY FATTY LIVER Chief Complaint Admit Date ABNORMAL EKG HEART PALPITATIONS September 222024 6:32am ABNORMAL EKG HEART PALPITATIONS September 222024 1:25pm Chief Complaint Admit Date ABNORMAL EKG HEART PALPITATIONS September 222024 6:32am ABNORMAL EKG HEART PALPITATIONS September 222024 1:25pm CARDIAC ARRYTHMIA October 21, 2024 8:0 5am Chief Complaint Admit Date ABNORMAL EKG HEART PALPITATIONS September 222024 6:32am ABNORMAL EKG HEART PALPITATIONS September 222024 1:25pm CARDIAC ARRYTHMIA October 21, 2024 8:0 5am CARDIAC ARRYTHMIA October 21, 2024 8:2 8am FATTY LIVER January 04, 2025 8:16 am Chief Complaint Admit Date Acid reflux- ref self October 26, 2024 8 :27am Steatosis of liver January 11, 2025 8:53a m Reason for Visit Admit Date Colon polyps October 26, 2024 8:2 7am GERD (gastroesophageal reflux disease) A pril 2024 8:27am RUQ abdominal pain October 26, 2024 8:2 7am Reason for Referral Specialty Diagnoses / Procedures Referred By Contac t Referred To Contact Diagnoses RUQ pain Procedures CT ABDOMEN WITH IV CONTRAST ONLY CHG CT ABDOMEN W/CONTRAST MATERIAL Viky Urrutia MD [address] [place] [address] Referral ID Status Reason Start Date Expiration Date V isits Requested Visits Authorized [id number] New Request 03/31/2024 04/25/2025 1 1 Referral ID Status Reason Start Date Expiration Date Visits Re quested Visits Authorized [id number] Closed 03/31/2024 04/25/2025 1 1 Additional Source Comments INFORMATION SOURCE (unrecogn ized section and content) DATE CREATED AUTHOR 10/27/2022 [facility] DATE CREATED AUTHOR AUTHOR'S ORGANIZ ATION 11/03/2022 [facility] DATE CREATED AUTHOR AUTHOR'S ORGANIZ ATION 03/07/2023 [facility] DATE CREATED AUTHOR AUTHOR'S ORGANIZ ATION 10/02/2024 [facility] DATE CREATED AUTHOR AUTHOR'S ORGANIZ ATION 10/08/2024 [facility] DATE CREATED AUTHOR AUTHOR'S ORGANIZ ATION 10/19/2024 [facility] DATE CREATED AUTHOR AUTHOR'S ORGANIZ ATION 10/28/2024 [facility] DATE CREATED AUTHOR AUTHOR'S ORGANIZ ATION 02/11/2025 [facility] DATE CREATED AUTHOR AUTHOR'S ORGANIZ ATION 02/12/2025 [facility] Care Teams (unrecognized sec tion and content) Team Status: Active Member Role Status Dates Dr. Cynthia Sun DO Primary Care Provider Active Team Status: Inactive Member Role Status Dates Dr. Andrea Dowell MD Attending Provider Active Team Status: Inactive Member Role Status Dates Dr. Cynthia Sun DO Primary Care Provider Active Dr. Andrea Dowell MD Attending Provider Active Team Status: Active Member Role Status Dates Dr. Cynthia Sun DO Primary Care Provide r, Attending Provider, Referring Provider Active Team Status: Inactive Member Role Status Dates Dr. Cynthia Sun DO Primary Care Provide r, Attending Provider, Referring Provider Active Membership Administrator Relationship Specialty Start Date End Date Cynthia Sun DO [address] [place], [place] [id number] PCP - General Internal Medicine 08/25/22 Membership Administrator Relationship Specialty Start Date End Date Cynthia Sun DO [address] [place], [place] [id number] PCP - General Internal Medicine 08/25/22 Membership Administrator Relationship Specialty Start Date End Date Brenden Cynthia Aayush [address] [facility] [address] [place] [address] PCP - General Internal Medicine 08/25/22 Membership Administrator Relationship Specialty Start Date End Date Brenden Cynthia Looney [address] [facility] [address] [place] [address] PCP - General Internal Medicine 08/25/22 Team Status: Inactive Member Role Status Dates Cynthia Sun DO Attending Provider Active Star t: August 25, 2024 End: August 25, 2024 Membership Administrator Relationship Specialty Start Date End Date Brenden Cynthia Aayush [address] [facility] [address] [place] [address] PCP - General Internal Medicine 08/25/22 Membership Administrator Relationship Specialty Start Date End Date Brenden Cynthia Aayush [address] [facility] [address] [place] [address] PCP - General Internal Medicine 08/25/22 Membership Administrator Relationship Specialty Start Date End Date Brenden Cynthia Aayush [address] [facility] [address] [place] [address] PCP - General Internal Medicine 08/25/22 Team Status: Inactive Member Role Status Dates Dr. Cynthia Sun DO Primary Care Provider Active Start: September 07, 2024 End: September 07, 2024 Dr. Cynthia Sun DO Attending Provider Active St art: September 07, 2024 End: September 07, 2024 Dr. Cynthia Sun DO Referring Provider Active St art: September 07, 2024 End: September 07, 2024 Team Status: Inactive Member Role Status Dates Dr. Cynthia Sun DO Primary Care Provider Active Start: September 22, 2024 End: September 22, 2024 Dr. Cynthia Sun DO Attending Provider Active St art: September 22, 2024 End: September 22, 2024 Dr. Cynthia Sun DO Referring Provider Active St art: September 22, 2024 End: September 22, 2024 Team Status: Active Member Role Status Dates Dr. Cynthia Sun DO Primary Care Provider Active Start: September 22, 2024 Dr. Cynthia Sun DO Referring Provider Active St art: September 22, 2024 Dr. Cnythia Sun DO Other Provider Active Start: September 22, 2024 Dr. Dat Sheikh MD Attending Provider Activ e Start: September 22, 2024 Membership Administrator Relationship Specialty Start Date End Date Cynthia Sun DO [address] [facility] [address] [place] [address] PCP - General Internal Medicine 08/25/22 Team Status: Inactive Member Role Status Dates Dr. Cynthia Sun DO Primary Care Provider Active Start: October 21, 2024 End: October 21, 2024 Dr. Cynthia Sun DO Attending Provider Active St art: October 21, 2024 End: October 21, 2024 Dr. Cynthia Sun DO Referring Provider Active St art: October 21, 2024 End: October 21, 2024 Team Status: Active Member Role/Relationship Status Dates Dr. Cynthia Sun DO Primary Care Provider Active Team Status: Inactive Member Role/Relationship Status Dates Dr. Cynthia Sun DO Primary Care Provider Active Start: September 22, 2024 End: September 22, 2024 Dr. Cynthia Sun DO Attending Provider Active St art: September 22, 2024 End: September 22, 2024 Dr. Cynthia Sun DO Referring Provider Active St art: September 22, 2024 End: September 22, 2024 Team Status: Active Member Role/Relationship Status Dates Dr. Cynthia Sun DO Primary Care Provider Active Start: September 22, 2024 Dr. Cynthia Sun DO Referring Provider Active St art: September 22, 2024 Dr. Cynthia Sun DO Other Provider Active Start: September 22, 2024 Dr. Dat Sheikh MD Attending Provider Activ e Start: September 22, 2024 Team Status: Inactive Member Role/Relationship Status Dates Dr. Cynthia Fast , DO Primary Care Provider Active Start: October 21, 2024 End: October 21, 2024 Dr. Cynthia Sun DO Attending Provider Active St art: October 21, 2024 End: October 21, 2024 Dr. Cynthia Sun DO Referring Provider Active St art: October 21, 2024 End: October 21, 2024 Team Status: Active Member Role/Relationship Status Dates Dr. Cynthia Sun DO Primary Care Provider Active Start: October 21, 2024 Dr. Cynthia Sun DO Referring Provider Active St art: October 21, 2024 Dr. Jenn Gottlieb MD Attending Provider Active Start: October 21, 2024 Team Status: Inactive Member Role/Relationship Status Dates Dr. Cynthia Sun DO Primary Care Provider Active Start: January 04, 2025 End: January 04, 2025 Dr. Cynthia Sun DO Attending Provider Active St art: January 04, 2025 End: January 04, 2025 Dr. Cynthia Sun DO Referring Provider Active St art: January 04, 2025 End: January 04, 2025 Team Status: Active Member Role Status Dates Out of Libertad Suárez MD Primary Care Provider Activ e Team Status: Inactive Member Role Status Dates Julia Akers NP Attending Provider Active Star t: October 26, 2024 End: October 26, 2024 Out of Libertad Suárez MD Primary Care Provider Activ e Start: October 26, 2024 End: October 26, 2024 Team Status: Inactive Member Role Status Dates Julia Akers NP Attending Provider Active Star t: January 11, 2025 End: January 11, 2025 Out of Libertad Suárez MD Primary Care Provider Activ e Start: January 11, 2025 End: January 11, 2025 Goals (unrecognized section and content) Goals may be documented in a n alternate sectionGoals may be documented in an alternate sectionGoals may be documented in an alternate sectionGoals may be documented in an alternate sectionGoals may be documented in an alternate sectionGoals may be documented in an alternate sectionGoals may be documented in an alternate sectionGoals may be documented in an alternate sectionGoals may be documented in an alternate section Reason for Visit (unrecogniz ed section and content) Reason Comments New Patient Vertigo Specialty Diagnoses / Procedures Referred By Brandan peñaloza Referred To Contact Otolaryngology Diagnoses Vertigo [place] Outside Order, Other [address] [address] Referral ID Status Reason Start Date Expiration Date V isits Requested Visits Authorized [id number] Pending Review 08/27/2023 09/20/2024 1 1 Reason Comments Informed Consent [id number] Reason Comments New Patient RUQ pain, states aidan t she had an acute attack, having pain in right upper side, esophagitis Specialty Diagnoses / Procedures Referred By Contac t Referred To Contact Gastroenterology Diagnoses RUQ pain Cynthia Sun DO [address] [place] [address] [address] [place] [address] Referral ID Status Reason Start Date Expiration Date V isits Requested Visits Authorized [id number] New Request 03/29/2024 04/23/2025 1 1 Specialty Diagnoses / Procedures Referred By Contac t Referred To Contact Diagnoses RUQ pain Procedures CT ABDOMEN WITH IV CONTRAST ONLY CHG CT ABDOMEN W/CONTRAST MATERIAL Viky Urrutia MD [address] [place] [address] Referral ID Status Reason Start Date Expiration Date Visits Re quested Visits Authorized [id number] Closed 03/31/2024 04/25/2025 1 1 Reason Comments Eye Pain Pain to left eye ons et 0300, she states it is a burning with an occasional stabbing feeling. It feels like there may be a foreign object in the eye. 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 Reason Comments Irregular Heart Beat Patient reports she has been having an irregular rhythm and has some work up scheduled but today her heart rate has been in the 100's and she has felt irregular beats. Reason Comments Chest Pain Patient reports she had a stress test yesterday and had exercise induced chest pain during the test. Patient states that her pain at that time was around 3/10. Today patient reports that she is having chest pain and pain into her left arm that rates around 5/10. Reason Comments Follow-up Source Comments (unrecognize d section and content) In the event this informatio n is protected by the Federal Confidentiality of Alcohol and Drug Abuse Patient Records regulations: The Federal rules restrict any use of the information to criminally investigate or prosecute any alcohol or drug abuse patient.[facility] Hospital[facility] the event this information is protected by the Federal Confidentiality of Alcohol and Drug Abuse Patient Records regulations: The Federal rules restrict any use of the information to criminally investigate or prosecute any alcohol or drug abuse patient.[facility] HospitalIn the event this information is protected by the Federal Confidentiality of Alcohol and Drug Abuse Patient Records regulations: The Federal rules restrict any use of the information to criminally investigate or prosecute any alcohol or drug abuse patient.[facility] HospitalIn the event this information is protected by the Federal Confidentiality of Alcohol and Drug Abuse Patient Records regulations: The Federal rules restrict any use of the information to criminally investigate or prosecute any alcohol or drug abuse patient.[facility] HospitalIn the event this information is protected by the Federal Confidentiality of Alcohol and Drug Abuse Patient Records regulations: The Federal rules restrict any use of the information to criminally investigate or prosecute any alcohol or drug abuse patient.[facility] HospitalIn the event this information is protected by the Federal Confidentiality of Alcohol and Drug Abuse Patient Records regulations: The Federal rules restrict any use of the information to criminally investigate or prosecute any alcohol or drug abuse patient.[facility] Scheduled Active and Recently Administ ered Medications (unrecognized section and content) Medication Order 08/23/2022 08/24/2022 08/25/2022 Erythromycin (ROMYCIN) ophthalmic ointment 1 Application (COMPLETED) 1 Application, Left Eye, ONCE, 1 dose, On Thu08/25/22 at 0615, Apply thin ribbon inside lower eyelid. 0551 (Given - Provid er: Nelly Colon RN) fluorescein ophthalmic 1 mg strip (COMPLETED) 1 strip, Left Eye, ONCE, 1 dose, On Thu08/25/22 at 0530 0536 (Given - Provid er: Nelly Colon RN) Tetracaine (PONTOCAINE) 0.5 % ophthalmic solution 1 drop (COMPLETED) 1 drop, Left Eye, ONCE, 1 dose, On Thu08/25/22 at 0530 0537 (Given - Provid er: Nelly Colon RN) Scheduled Medication Order 09/21/2024 09/22/2024 09/23/2024 Aspirin tablet 325 mg (COMPLETED) 325 mg, Oral, ONCE, 1 dose, On Thu09/23/24 at 0845 0818 (Given - Provid er: Bennie Gould RN) Heparin injection 3,500 Units (COMPLETED) 3,500 Units (rounded from 3,594 Units = 60 Units/kg 59.9 kg Dosing weight), Intravenous, ONCE, 1 dose, On Thu09/23/24 at 0930, Max bolus = 4,000 units 0949 (Given - Provid er: Bennie Gould RN) nitroGLYCERIN (NITRO-BID) 2 % ointment 1 inch (COMPLETED) 1 inch, Topical, ONCE, 1 dose, On Thu09/23/24 at 0930, Recommended maximum frequency of administration is 2 doses/day. Include a nitrate-free interval of ~10 to 12 hours each day to minimize the risk of tolerance. 0946 (Given - Provid er: Bennie Gould RN) Continuous Medication Order 09/21/2024 09/22/2024 09/23/2024 Heparin (Porcine) in NaCl 22249-9.45 UT/250ML-% premix infusion(Linked Group 1) 0-30 Units/kg/hr 59.9 kg Dosing weight (0-17.97 mL/hr, rounded to 0-18 mL/hr), Intravenous, CONTINUOUS, Starting on Thu09/23/24 at 0900, Until Thu09/23/24 at 1518, Initiate at 12 units/kg/hour (initial dose not to exceed 1,000 units/hr). Adjust dosage based on every 6 hour anti-Xa levels. If anti-Xa levels less than or equal to 0.1, bolus 60 units/kg (maximum dose 4,000 units) and increase rate by 4 units/kg/hr. If anti-Xa levels 0.11 to 0.29, bolus 30 units/kg (maximum dose 2,000 units) and increase rate by 2 units/kg/hr. If anti-Xa levels 0.3 to 0.7, maintain current infusion dose. If anti-Xa levels 0.71 to 0.8, decrease infusion rate by 2 units/kg/hr. If anti-Xa levels greater than 0.8, hold infusion for 1 hour, then decrease rate by 3 units/kg/hr., Indications: Pev-EG-Lwqcbemoa Acute Coronary Syndrome, Unstable angina 0950 ($$New Bag$$ - Provider: Bennie Gould RN) PRN Medication Order 09/21/2024 09/22/2024 09/23/2024 Heparin injection 2,000-3,500 Units(Linked Group 1) 2,000-3,500 Units (rounded from 1,797-3,594 Units = 30-60 Units/kg 59.9 kg Dosing weight), Intravenous, ADMINISTER DIRECTED, Starting on Thu09/23/24 at 1446, Until Thu09/23/24 at 1518, Other, For anti-Xa levels less than 0.3, For anti-Xa levels less than 0.1, bolus 60 unit/kg (maximum 4,000 units). If anti-Xa levels 0.11-0.29, bolus 30 units/kg (maximum 2,000 units). Linked Groups Order Group 1: Heparin (Porcine) in NaCl 27869-9.45 UT/250ML-% premix infusionJump to med 0-30 Units/kg/hr 59.9 kg Dosing weight (0-17.97 mL/hr, rounded to 0-18 mL/hr), Intravenous, CONTINUOUS, Starting on Thu09/23/24 at 0900, Until Thu09/23/24 at 1518, Initiate at 12 units/kg/hour (initial dose not to exceed 1,000 units/hr). Adjust dosage based on every 6 hour anti-Xa levels. If anti-Xa levels less than or equal to 0.1, bolus 60 units/kg (maximum dose 4,000 units) and increase rate by 4 units/kg/hr. If anti-Xa levels 0.11 to 0.29, bolus 30 units/kg (maximum dose 2,000 units) and increase rate by 2 units/kg/hr. If anti-Xa levels 0.3 to 0.7, maintain current infusion dose. If anti-Xa levels 0.71 to 0.8, decrease infusion rate by 2 units/kg/hr. If anti-Xa levels greater than 0.8, hold infusion for 1 hour, then decrease rate by 3 units/kg/hr., Indications: Ryf-UJ-Zjxqktmvu Acute Coronary Syndrome, Unstable angina And Heparin injection 2,000-3,500 UnitsJump to med 2,000-3,500 Units (rounded from 1,797-3,594 Units = 30-60 Units/kg 59.9 kg Dosing weight), Intravenous, ADMINISTER DIRECTED, Starting on Thu09/23/24 at 1446, Until Thu09/23/24 at 1518, Other, For anti-Xa levels less than 0.3, For anti-Xa levels less than 0.1, bolus 60 unit/kg (maximum 4,000 units). If anti-Xa levels 0.11-0.29, bolus 30 units/kg (maximum 2,000 units). Scheduled Medication Order 09/24/2024 09/25/2024 09/26/2024 aspirin chewable tablet 81 mg 81 mg, Oral, DAILY, First dose on 09/24/24 at 1230, Until Discontinued 1208 (Given - Provider: Jacqui Licona, SHAYNA) 0833 (Given - Provider: Pauly Hewitt, SHAYNA) 0743 (Given - Provider: Renita Johnson, Student Nurse) calcium carbonate (TUMS) tablet 500 mg 500 mg, Oral, DAILY, First dose on 09/24/24 at 0900, Until Discontinued 0735 (Given - Provider: Jacqui Licona RN) 0833 (Given - Provider: Pauly Hewitt RN) 0743 (Given - Provider: Renita Johnson, Student Nurse) Enoxaparin Sodium (LOVENOX) injection 40 mg 40 mg, Subcutaneous, EVERY 24 HOURS, First dose on 09/25/24 at 1215, Until Discontinued, DO NOT ADMINISTER ON DAY OF SURGERY/INVASIVE PROCEDURE UNLESS OTHERWISE DIRECTED., Indications: DVT/PE prophylaxis, On hold since Thu09/25/2024 at 1143 until manually unheld 1143 (Held by provider - Provider: JOSSELIN Ramos - Reason: Other)1215 (Automatically Held - Provider: JOSSELIN Ramos) 1215 (Automatically Held - Provider: Maryana Torres APRN-GENOVEVA)2249 (Unheld by provider - Provider: System Discharge) lidocaine 4 % patch 1 patch 1 patch, Transdermal, Administer over 12 Hours, EVERY 24 HOURS, First dose on 09/25/24 at 211, Until Discontinued, Apply to shoulder . 2053 (Patch Applied - Provider: Jaleesa Amato RN) 713 (Patch Removed - Provider: Dalila Matthew RN)2114 (Canceled Entry - Provider: System Discharge - Comment: Automatically canceled at discontinue of medication order) metoprolol succinate (TOPROL-XL) split tablet XL 12.5 mg 12.5 mg, Oral, DAILY, First dose on Thu09/24/24 at 1200, Until Discontinued, Slow release product. Do not crush. Extended release can be cut in half. 1208 (Given - Provider: Jacqui Licona RN) 0833 (Given - Provider: Pauly Hewitt RN) 0743 (Given - Provider: Renita Johnson, Student Nurse) Continuous Medication Order 09/24/2024 09/25/2024 09/26/2024 Heparin (Porcine) in NaCl 50398-2.45 UT/250ML-% premix infusion (CANCELED)(Linked Group 1) 0-30 Units/kg/hr 57.3 kg Dosing weight (0-17.19 mL/hr, rounded to 0-17.2 mL/hr), Intravenous, CONTINUOUS, Starting on Thu09/23/24 at 1715, Until Thu09/25/24 at 1143, Initiate at 12 units/kg/hour (initial dose not to exceed 1,000 units/hr). Adjust dosage based on every 6 hour anti-Xa levels. If anti-Xa levels less than or equal to 0.1, bolus 60 units/kg (maximum dose 4,000 units) and increase rate by 4 units/kg/hr. If anti-Xa levels 0.11 to 0.29, bolus 30 units/kg (maximum dose 2,000 units) and increase rate by 2 units/kg/hr. If anti-Xa levels 0.3 to 0.7, maintain current infusion dose. If anti-Xa levels 0.71 to 0.8, decrease infusion rate by 2 units/kg/hr. If anti-Xa levels greater than 0.8, hold infusion for 1 hour, then decrease rate by 3 units/kg/hr., Indications: Cxy-PP-Noedvibcd Acute Coronary Syndrome 0342 (Rate/Dose Verify - Provider: Melani Trejo RN)1701 (Stopped - Provider: Jacqui Licona RN)1702 ($$New Bag$$ - Provider: Jacqui Licona RN)2317 (Rate/Dose Change - Provider: Jaleesa Amato RN) 0543 (Rate/Dose Verify - Provider: Jaleesa Amato RN - Comment: xa 0.54)1150 (Stopped - Provider: Pauly Hewitt RN) PRN Medication Order 09/24/2024 09/25/2024 09/26/2024 Acetaminophen (TYLENOL) tablet 650 mg 650 mg, Oral, EVERY 6 HOURS NEEDED, Starting on Thu09/23/24 at 1637, Until Thu09/26/24 at 2249, Mild Pain, Oral temp > 100.4 F, If Motrin is also ordered, alternate for mild pain. fentaNYL (SUBLIMAZE) injection (CANCELED) Administer over 2 Minutes, NEEDED, Starting on Thu09/26/24 at 1503, Until Thu09/26/24 at 1523, Intra-op/Intra-Proc 1503 (Given - Provid er: Tahir Gambino RN)1513 (Given - Provider: Tahir Gambino RN) Heparin injection 1,500-3,500 Units (CANCELED)(Linked Group 1) 1,500-3,500 Units (rounded from 1,719-3,438 Units = 30-60 Units/kg 57.3 kg Dosing weight), Intravenous, ADMINISTER DIRECTED, Starting on Thu09/23/24 at 2304, Until Thu09/25/24 at 1143, Other, For anti-Xa levels less than 0.3, For anti-Xa levels less than 0.1, bolus 60 unit/kg (maximum 4,000 units). If anti-Xa levels 0.11-0.29, bolus 30 units/kg (maximum 2,000 units). 2316 (Given - Provider: Jaleesa Amato RN) Heparin injection (CANCELED) NEEDED, Starting on Thu09/26/24 at 1514, Until Thu09/26/24 at 1523, Intra-op/Intra-Proc 1514 (Given - Provid er: Arun Paulson MD) hydrALAZINE (APRESOLINE) injection 10 mg 10 mg, Intravenous, EVERY 6 HOURS NEEDED, Starting on Thu09/23/24 at 1646, Until Thu09/26/24 at 2249, SBP > 160 mmHg Iopamidol (370 mg/mL) (ISOVUE) 76 % (CANCELED) NEEDED, Starting on Thu09/26/24 at 1519, Until Thu09/26/24 at 1526, Intra-op/Intra-Proc 1519 (Given - Provid er: Arun Paulson MD - Comment: IC) Lidocaine 2 % injection (CANCELED) NEEDED, Starting on Thu09/26/24 at 1512, Until Thu09/26/24 at 1523, Intra-op/Intra-Proc 1512 (Given - Provid er: Arun Paulson MD) Melatonin tablet 3 mg 3 mg, Oral, DAILY AT BEDTIME NEEDED, Starting on Thu09/23/24 at 1637, Until Thu09/26/24 at 2249, Sleep midazolam (VERSED) injection (CANCELED) NEEDED, Starting on Thu09/26/24 at 1503, Until Thu09/26/24 at 1523, Intra-op/Intra-Proc 1503 (Given - Provid er: Tahir Gambino RN)1514 (Given - Provider: Tahir Gambino RN) Naloxone (NARCAN) injection 0.4 mg 0.4 mg, Intravenous, EVERY 15 MINUTES NEEDED, 2 doses, Starting on Thu09/23/24 at 1637, Until Thu09/26/24 at 2249, Respiratory Depression, Opioid Reversal nitroGLYCERIN in D5W 0.2 MG/ML vial (CANCELED) NEEDED, Starting on Thu09/26/24 at 1513, Until Thu09/26/24 at 1523, Intra-op/Intra-Proc 1513 (Given - Provid er: Arun Paulson MD) Ondansetron (ZOFRAN-ODT) disintegrating tablet 4 mg(Linked Group 2) 4 mg, Oral, EVERY 6 HOURS NEEDED, Starting on Thu09/23/24 at 1637, Until Thu09/26/24 at 2249, Nausea / Vomiting, 1st line, Ondansetron 4mg/2ml (ZOFRAN) injection 4 mg(Linked Group 2) 4 mg, Intravenous, EVERY 6 HOURS NEEDED, Starting on Thu09/23/24 at 1637, Until Thu09/26/24 at 2249, Nausea / Vomiting, 1st line, If unable to take PO Sodium chloride (PF) 0.9 % injection 5 mL 5 mL, Intravenous, ADMINISTER DIRECTED, Starting on Thu09/23/24 at 1637, Until Thu09/26/24 at 2249, Flush, per IV Care Guidelines verapamil (ISOPTIN) injection (CANCELED) NEEDED, Starting on Thu09/26/24 at 1513, Until Thu09/26/24 at 1523, Intra-op/Intra-Proc 1513 (Given - Provid er: Arun Paulson MD) Linked Groups Order Group 1: Heparin (Porcine) in NaCl 74218-3.45 UT/250ML-% premix infusion (CANCELED)Jump to med 0-30 Units/kg/hr 57.3 kg Dosing weight (0-17.19 mL/hr, rounded to 0-17.2 mL/hr), Intravenous, CONTINUOUS, Starting on Thu09/23/24 at 1715, Until Thu09/25/24 at 1143, Initiate at 12 units/kg/hour (initial dose not to exceed 1,000 units/hr). Adjust dosage based on every 6 hour anti-Xa levels. If anti-Xa levels less than or equal to 0.1, bolus 60 units/kg (maximum dose 4,000 units) and increase rate by 4 units/kg/hr. If anti-Xa levels 0.11 to 0.29, bolus 30 units/kg (maximum dose 2,000 units) and increase rate by 2 units/kg/hr. If anti-Xa levels 0.3 to 0.7, maintain current infusion dose. If anti-Xa levels 0.71 to 0.8, decrease infusion rate by 2 units/kg/hr. If anti-Xa levels greater than 0.8, hold infusion for 1 hour, then decrease rate by 3 units/kg/hr., Indications: [id number] Acute Coronary Syndrome And Heparin injection 1,500-3,500 Units (CANCELED)Jump to med 1,500-3,500 Units (rounded from 1,719-3,438 Units = 30-60 Units/kg 57.3 kg Dosing weight), Intravenous, ADMINISTER DIRECTED, Starting on Thu09/23/24 at 2304, Until Thu09/25/24 at 1143, Other, For anti-Xa levels less than 0.3, For anti-Xa levels less than 0.1, bolus 60 unit/kg (maximum 4,000 units). If anti-Xa levels 0.11-0.29, bolus 30 units/kg (maximum 2,000 units). Group 2: Ondansetron 4mg/2ml (ZOFRAN) injection 4 mgJump to med 4 mg, Intravenous, EVERY 6 HOURS NEEDED, Starting on Thu09/23/24 at 1637, Until 09/26/24 at 2249, Nausea / Vomiting, 1st line, If unable to take PO Or Ondansetron (ZOFRAN-ODT) disintegrating tablet 4 mgJump to med 4 mg, Oral, EVERY 6 HOURS NEEDED, Starting on Thu09/23/24 at 1637, Until Thu09/26/24 at 2249, Nausea / Vomiting, 1st line, FOR RECORDS PERTAINING TO PATIENTS WHO ARE OR HAVE BEEN ENROLLED IN A CHEMICAL DEPENDENCY/SUBSTANCEABUSE PROGRAM, SOME INFORMATION MAY BE OMITTED. This clinical summary was aggregated from multiple sources. Caution should be exercised in using it in the provision of clinical care. This summary normalizes information from multiple sources, and as a consequence, information in this document may materially change the coding, format and clinical context of patient data. In addition, data may be omitted in some cases. CLINICAL DECISIONS SHOULD BE BASED ON THE PRIMARY CLINICAL RECORDS. [employer] [facility]. provides no warranty or guarantee of the accuracy or completeness of information in this document.
== END | disposition home or self-care (01) ==
LOC: OPBD 13:37
PROVIDERS: PCP Internal Medicine; Referring Provider Internal Medicine; Visit Provider Internal Medicine
DX: Z12.31 Encounter for screening mammogram for malignant neoplasm of breast (principal); Z78.0 Asymptomatic menopausal state
CPT/HCPCS: 77063; 77067; 77080

== ENCOUNTER → 2025-04-18 | Outpatient (CLI) | payer MEDICARE, SELFPAY ==
--- NOTE | 2025-04-18 14:22 | CT_ITS ---
EXAM: CT Abdomen Without Intravenous Contrast CLINICAL INDICATION: COMPUTERIZED TOMOGRAPHY (CT SCAN) OF BILATERAL ADRENAL GLANDS; [place] TECHNIQUE: Axial computed tomography images of the abdomen without intravenous contrast. This CT exam was performed using one or more of the following dose reduction techniques: automated exposure control, adjustment of the mA and/or kV according to patient size, and/or use of iterative reconstruction technique. COMPARISON: CT abdomen with and without 11/08/2019 FINDINGS: LUNG BASES: Unremarkable. No mass. No consolidation. LIVER: Hepatomegaly with fatty infiltration. GALLBLADDER AND BILE DUCTS: Unremarkable. No calcified stones. No ductal dilation. PANCREAS: Unremarkable. No ductal dilation. SPLEEN: Unremarkable. No splenomegaly. ADRENALS: Stable 9 mm and 6 mm right and left adrenal adenomas, respectively. KIDNEYS AND URETERS: Unremarkable. No obstructing stones. No hydronephrosis. STOMACH AND BOWEL: Unremarkable. No obstruction. No mucosal thickening. INTRAPERITONEAL SPACE: Unremarkable. No free air. No significant fluid collection. BONES/JOINTS: No acute fracture. No dislocation. SOFT TISSUES: Unremarkable. VASCULATURE: Unremarkable. No abdominal aortic aneurysm. LYMPH NODES: Unremarkable. No enlarged lymph nodes. CT/Abdomen without IV Contrast IMPRESSION: 1. Stable 9 mm and 6 mm right and left adrenal adenomas, respectively. 2. Hepatomegaly with fatty infiltration. Reading Location: [id number]
== END | disposition home or self-care (01) ==
LOC: CT 14:22
PROVIDERS: PCP Internal Medicine; Referring Provider Internal Medicine; Visit Provider Internal Medicine
DX: E27.9 Disorder of adrenal gland, unspecified (principal)
CPT/HCPCS: 74150